=== PATIENT | female | born 1995 | race Two or more races ===

== ENCOUNTER 2021-03-10 09:33 | Outpatient (CLI) | payer OTHER, SELFPAY ==
--- NOTE | ~2021-03-10 | US_ITS ---
US abdomen complete EXAMINATION: US Abdomen Complete INDICATION: Abdominal pain PROCEDURE: Realtime High Resolution abdomen ultrasound. COMPARISON: No prior studies for comparison FINDINGS: Gallbladder contains stones without gallbladder wall thickening or pericholecystic fluid. Common bile duct measures 4 mm. Liver echotexture is increased, consistent with fatty infiltration.. Pancreas within normal limits. Pancreatic tail is obscured by bowel gas. Spleen is unremarkeable. Renal echotexture is within norm al limits bilaterally without hydronephrosis, contour deforming mass or renal stone. Right kidney caitlin sures 11.3 cm. Left kidney measures 11.1 cm. Visualized aspects of the aorta and IVC are within normal limits. Portal vein is patent. No sonograph ic Hernández's sign indicated by the technologist. There is a 1 cm right renal cyst. IMPRESSION: 1: Hepatic steatosis. 2: Cholelithiasis. Reviewed, dictated and finalized at location A.
== END 2021-03-10 09:34 | disposition home or self-care (01) ==
PROVIDERS: Visit Provider Advanced Practice Midwife
DX: R10.9 Unspecified abdominal pain (principal); K76.0 Fatty (change of) liver, not elsewhere classified; K80.20 Calculus of gallbladder without cholecystitis without obstruction
CPT/HCPCS: 76700

== ENCOUNTER 2021-11-25 11:04 | Outpatient (CLI) | payer OTHER, SELFPAY ==
--- NOTE | 2021-12-02 16:35 | WPDHOLTEREM ---
Holter/Event Monitor Holter/Event Monitor Date of procedure: 12/02/21 Holter/Event Procedure: 24 Hr Holter Monitor Diagnosis: Tachycardia Indications: Tachycardia Image/Tracing Quality: Acceptable Finding: Underlying rhythm is sinus with an elevated average heart rate 95 beats per minute minimum of 50 beats per minute occurring at 01:46 a.m. and a maximum 154 beats minute occurring at 11:13 a.m.. One isolated premature ventricular contraction is noted. Rare supraventricular ectopy which there are 7 isolated premature atrial contractions 1 atrial triplet and 1 atrial pair noted. No sustained or nonsustained ventricular tachycardia, atrial fibrillation, atrial flutter, prolonged pauses or high-grade AV blocks. Longest RR interval 1.5 seconds occurring at 1:47 a.m.. No symptoms returned in conjunction with this study. Sinus arrhythmia is observed throughout. MT interval and QRS duration within normal limits. Conclusion: Sinus rhythm with sinus arrhythmia with elevated average heart rate with 1 isolated PVC and rare PACs. No prolonged pauses or high-grade AV blocks. No atrial fibrillation atrial flutter. No symptoms returned in conjunction with this study.
== END 2021-11-25 11:05 | disposition home or self-care (01) ==
LOC: ANHCARD 11:14
PROVIDERS: Visit Provider Physician Assistant
DX: R00.0 Tachycardia, unspecified (principal)
CPT/HCPCS: 93225; 93226

== ENCOUNTER 2022-07-23 10:11 | Emergency (ER) | payer OTHER, SELFPAY ==
--- NOTE | ~2022-07-23 | CT_ITS ---
EXAMINATION: CT abdomen pelvis w con DATE: 07/23/2022 11:31 INDICATION: Right lower quadrant abdominal pain TECHNIQUE: Computed tomography (CT) of the abdomen and pelvis was performed with 100 mL Omnipaque-350 intravenous contrast. Automated exposure control and iterative reconstruction technique were employe d. The dose-length product was 408.04 mGy-cm. COMPARISON: None FINDINGS: Lung bases are clear. Heart size is normal. No pericardial or pleural effusion. Mild focal hepatic st eatosis at the ligamentum teres. Cholecystectomy clips the gallbladder fossa. Spleen, pancreas, bilat eral adrenal glands and left kidney are normal. 3 mm nonobstructing cyst at the lower pole of the rig ht kidney. 11 mm cyst at the upper pole of the right kidney. Bowels including the appendix are normal . Bladder is normal. A couple fluid attenuation cysts/follicles at the left ovary. Right ovary is unr emarkable. Bilateral tubal ligation rings along the broad ligaments. There is an ill-defined approxim ately 2 cm region of decreased enhancement in the region of the right uterine cornua. No free intrape ritoneal gas or fluid. No pathologically enlarged abdominal or pelvic lymphadenopathy. Likely physiol ogic mild anterior wedging at T11 and T12. IMPRESSION: 1. Nonobstructing 3 mm right renal stone. No ureteral stones or hydronephrosis. 2. Indeterminate approximately 2 cm ill-defined region of decreased enhancement in the region of the right uterine cornua. Differential would include uterine fibroid or focal adenomyosis. Although bilat eral tubal ligation rings are in expected position. Differential would also include early . Consider correlation with beta hCG level and further evaluation with pelvic ultrasound. Reviewed, dictated and finalized at location A. LATOR OPERATOR IMPRESSION: 1. Nonobstructing 3 mm right renal stone. No ureteral stones or hydronephrosis. 2. Indeterminate approximately 2 cm ill-defined region of decreased enhancement in the region of the right uterine cornua. Differential would include uterine fibroid or focal adenomyosis. Although bilateral tubal ligation rings are in ex pected position. Differential would also include early . Consider lupillo elation with beta hCG level and further evaluation with pelvic ultrasound.
[2022-07-23 10:21] VITALS: BP 130/88; PULSE 103; RESP 18; TEMP 36.9; O2SAT 100
--- NOTE | 2022-07-23 10:32 | ED.ABDPAIN ---
HPI - Abdominal Pain General Chief Complaint: Abdominal Pain Stated Complaint: right side pain Time Seen by Provider: 07/23/22 10:15 History of Present Illness HPI narrative: 27-year-old female with a history of anxiety presents to the emergency room with sudden onset of unprovoked right pelvic pain and nausea vomiting and diarrhea that began last night. States pelvic pain radiates into her lower back. Recently began her menstrual cycle yesterday. Denies any blood in her emesis or diarrhea. States abdominal pain is a dull sensation is constant. Denies any abdominal surgeries. Denies fevers. Denies dysuria or hematuria. Denies any vaginal discharge. No concerns of STDs. Related Data Allergies Allergy/AdvReac Type Severity Reaction Status Date / Time No Known Allergies Allergy Verified 07/23/22 10:28 Review of Systems Review of Systems: CONSTITUTIONAL: Denies fever, chills, or sweats. EYES: Denies visual changes, redness, or discharge. ENT: Denies rhinorrhea, congestion, sore throat, or otalgia. CARDIOVASCULAR: Denies chest pain, palpitations, or edema. RESPIRATORY: Denies cough or dyspnea. GASTROINTESTINAL: Reports abdominal pain, nausea, vomiting and diarrhea GENITOURINARY: Denies dysuria or hematuria. SKIN: Denies rash or itching. MUSCULOSKELETAL: Denies back pain, joint pain, or myalgia. NEUROLOGIC: Denies headache, numbness, dizziness, or weakness. PSYCHIATRIC: Denies anxiety or depression. Exam Narrative: GENERAL: Well-appearing, well-nourished, no physical limitations, and in no acute distress. HEAD: Normocephalic, atraumatic. EYES: Conjunctivae normal, PERRLA and EOMI. ENT: Mucous membranes dry CHEST: Clear to auscultation. No respiratory distress. No wheezes rales or rhonchi. No tenderness. HEART: Regular rate and rhythm. No murmur heard. Normal peripheral pulses. ABDOMEN: Soft, RLQ tenderness, nondistended, normal active bowel sounds. Negative heel strike. Negative psoas and obturator signs. BACK: No CVA tenderness EXTREMITIES: Normal range of motion. No edema. No clubbing or cyanosis SKIN: Warm, dry, no rash. No noted wounds NEURO: No focal deficits. Alert and oriented x3. MAEW. CN's II-XI intact bilaterally, normal gait PSYCH: Cooperative. Normal mood and affect. Course Vital Signs Vital signs: Vital Signs Temperature 36.9 C 07/23/22 10:21 Pulse Rate 103 H 07/23/22 10:21 Respiratory Rate 18 07/23/22 10:21 Blood Pressure 130/88 07/23/22 10:21 Pulse Oximetry 100 07/23/22 10:21 Oxygen Delivery Room Air 07/23/22 10:21 Temperature 36.9 C 07/23/22 10:21 Pulse Rate 103 H 07/23/22 10:21 Respiratory Rate 18 07/23/22 10:21 Blood Pressure 130/88 07/23/22 10:21 Pulse Oximetry 100 07/23/22 10:21 Oxygen Delivery Room Air 07/23/22 10:21 MDM - Abdominal Pain MDM Narrative Medical decision making narrative: 27-year-old female presented to the emergency room with right-sided pelvic pain since yesterday with associated nausea vomiting and diarrhea. CT scan shows a possible adenomyosis on the right side of the uterus, which is likely causing the pain the patient is experiencing. Patient did have a count, which is likely due to her vomiting. Patient responded well to a liter of fluids pain medicine and nausea medicine. Discussed the CT findings with the patient and encouraged her to follow-up with her [employer]. Lab Data Attestation: I reviewed the patient's lab results. 07/23/22 10:41 07/23/22 10:41 Labs: Lab Results 07/23/22 07/23/22 07/23/22 Range/Units 10:41 10:41 10:41 WBC 16.4 H (4.5-10.0) K/mm3 RBC 4.11 L (4.2-5.4) M/mm3 Hgb 13.9 (12.0-15.0) g/dL Hct 41.8 (37.0-47.0) % MCV 101.7 H (80-100) fl MCH 33.8 (26-34) pg MCHC 33.3 (32-36) g/dl RDW 12.1 (11.5-14.5) % Plt Count 231 (150-375) k/mm3 MPV 12.1 H (7.4-10.4) fl Immature Gran % (Auto) 0.3 (0-0.5) % Neut % (Auto) 91.7 H
[2022-07-23] MEDS: SODIUM CHLORIDE 0.9% IV 1,000 ML 999 ML IV CONT (10:43)
[2022-07-23] MEDS: ONDANSETRON INJ 4 MG/2 ML VIAL IV PUSH (10:44)
[2022-07-23 10:49] LABS: Basophils Absolute Auto 0.1 K/mm3 (0.0-0.1); Basophils Percent Auto 0.4 % (0.2-1.2); Eosinophils Percent Auto 0.1 % (0-4.4); Hematocrit 41.8 % (37.0-47.0); Hemoglobin 13.9 g/dL (12.0-15.0); Immature Granulocyte Absolute 0.05 K/mm3 (0.00-0.031); Immature Granulocyte Percent A 0.3 % (0-0.5); Lymphocytes Absolute Auto 0.86 K/mm3 (0.9-3.2); Lymphocytes Percent Auto 5.2 % (18.3-44.2); Mean Corpuscular HGB Conc 33.3 g/dl (32-36); Mean Corpuscular Hemoglobin 33.8 pg (26-34); Mean Corpuscular Volume 101.7 fl (80-100); Mean Platelet Volume 12.1 fl (7.4-10.4); Monocytes Absolute Auto 0.4 K/mm3 (0.1-0.6); Monocytes Percent Auto 2.3 % (2.6-8.5); Neutrophils Absolute Auto 15.1 K/mm3 (1.3-6.7); Neutrophils Percent Auto 91.7 % (45.5-73.1); Platelet Count Result 231 k/mm3 (150-375); Red Blood Count 4.11 M/mm3 (4.2-5.4); Red Cell Distribution Width 12.1 % (11.5-14.5); White Blood Count 16.4 K/mm3 (4.5-10.0)
[2022-07-23] MEDS: KETOROLAC 30 MG/ML VIAL (*BKC) IV PUSH (10:54)
[2022-07-23 11:02] LABS: Alanine Aminotransferase 28 U/L (6-35); Albumin Level 4.6 g/dL (3.5-5.1); Alkaline Phosphatase 68 U/L (38-126); Anion Gap 5 mmol/L (8-16); Aspartate Amino Transferase 25 U/L (14-36); Bilirubin,Total 0.4 mg/dL (0.2-1.3); Blood Urea Nitrogen 10 mg/dL (7-17); Calcium 8.9 mg/dL (8.4-10.2); Carbon Dioxide 27 mmol/L (22-30); Chloride 104 mmol/L (98-107); Estimated CRCL calculation 106 ml/min; Estimated Glomerular Filt Rate > 60; Glucose 104 mg/dL (65-110); Lactic Acid Reflex 1.4 mmol/L (0.7-2.0); Lipase 256 U/L (23-300); Potassium 4.2 mmol/L (3.4-5.0); Sodium 136 mmol/L (137-145)
[2022-07-23 11:09] LABS: Appearance Urine Clear (Clear); Bilirubin Urine Negative (Negative); Blood Urine 3+ (Negative); Color Urine Yellow (Yellow); Glucose Urine UA Negative (Negative); Ketones Urine Negative (Negative); Leukocyte Esterase Ur Trace LEU/UL (Negative); Nitrate Urine Negative (Negative); Protein Urine 2+ mg/dL (Negative); Urobilinogen Urine 0.2 mg/dL (<2.0); pH Urine 7.5 (5.0-9.0)
[2022-07-23 11:15] LABS: Bacteria Urine Trace /hpf; Mucus Urine Few /lpf; RBC Urine >75 /hpf (0-2); Squamous Epithelial Cell Urine Moderate /hpf (Few); WBC Urine 21-30 /hpf
[2022-07-23 11:17] LABS: Add Urine Microscopic? YES
[2022-07-23] MEDS: MORPHINE SULFATE (*CRX) 4 MG/ML INJ IV PUSH (11:57)
[2022-07-23 12:47] VITALS: BP 108/71; PULSE 94; RESP 18; O2SAT 100
== END 2022-07-23 12:49 | disposition home or self-care (01) ==
PROVIDERS: Emergency Provider Nurse Practitioner Family
DX: N80.03 Adenomyosis of the uterus (principal); R11.10 Vomiting, unspecified
CPT/HCPCS: 36415; 74177; 80053; 81001; 81025; 83605; 83690; 85025; 87086; 87088; 96361; 96374; 96375; 99284; J1885; J2270; J2405; J7030; Q9967

== ENCOUNTER 2022-08-15 12:44 | Outpatient (CLI) | payer OTHER, SELFPAY ==
--- NOTE | ~2022-08-15 | CT_ITS ---
EXAMINATION: CT sinus wo con DATE: 08/15/2022 13:01 INDICATION: TECHNIQUE: Computed tomography (CT) of the paranasal sinuses was performed without intravenous contra st. The dose-length product (DLP) was 322.78 mGy-cm. Iterative reconstruction was used. COMPARISON: None FINDINGS: There is normal development and pneumatization of the paranasal sinuses. Large retention cy st or polyp in the inferior/dependent right maxillary sinus The frontal, sphenoid, ethmoid, and maxil kayli sinuses are otherwise clear. The bilateral ostiomeatal complexes are patent. Visualized soft tis sues are unremarkable. IMPRESSION: 1. Right maxillary sinus cyst/polyp. 2. Otherwise normal CT sinus findings. Reviewed, dictated and finalized at location K. NESS INITIATIVES MANAGER
== END 2022-08-15 12:45 | disposition home or self-care (01) ==
LOC: ANHIMG 12:49
PROVIDERS: PCP Physician Assistant; Visit Provider Otolaryngology
DX: J32.9 Chronic sinusitis, unspecified (principal); J34.1 Cyst and mucocele of nose and nasal sinus
CPT/HCPCS: 70486

== ENCOUNTER 2024-02-02 11:29 | Outpatient (CLI) | payer OTHER, SELFPAY ==
[2024-02-02 15:44] LABS: Hematocrit 38.9 % (37.0-47.0); Hemoglobin 13.1 g/dL (12.0-15.0)
== END 2024-02-02 11:30 | disposition home or self-care (01) ==
PROVIDERS: Visit Provider Obstetrics & Gynecology
DX: N94.6 Dysmenorrhea, unspecified (principal); Z01.818 Encounter for other preprocedural examination
CPT/HCPCS: 36415; 85014; 85018; 86850; 86900; 86901

== ENCOUNTER 2024-02-09 00:47 | Day surgery (SDC) | payer OTHER, SELFPAY ==
[2024-02-01 14:45] VITALS: BMI 32.3
--- NOTE | 2024-02-01 14:54 | PC.NURSE ---
Report to the Outpatient Waiting Room, entrance under the green pavilion located off [facility], at time _0600_ on date _[id number]_. Planned Procedure Time: _0730_. Time changes happen often and if your time is changed the preop area will call you the afternoon before. - You and your visitor will be asked to self-screen and do not enter if you have any COVID symptoms. - A mask is optional within the hospital at this time. Patients may have clear liquids (water, carbonated beverages, clear teas, apple juice) until 3 hours prior to surgery with a maximum of 20 ounces. - No food from midnight until time of surgery Take the following medications with a SIP of water the morning of surgery: ___Bupropion DO NOT STOP ANY OF YOUR OTHER PRESCRIPTION MEDICATIONS PRIOR TO SURGERY ?EXCEPT THE FOLLOWING Medications to discontinue per physician ___All vitamins and supplements Date to take last gadk___[id number] Kaminski's office if OK to be taking Aleve. Please no make-up, nail portuguese, hairspray, perfume, deodorant, or body powder the day of surgery. No jewelry (including any body piercings) or valuables the day of surgery, leave them at home. Please take a shower or bath the night before, or the morning of, surgery with an antibacterial soap. Wear comfortable, loose fitting clothing. - Jewelry must be removed prior to entering the operating room. Rings and piercings that are not removed may be cut off. - The hospital will not accept responsibility for valuables. - Please leave all valuables, including medications, at home the day of surgery. If you are going home after surgery, a licensed tank wagon driver must drive you home. - NO public transportation without another adult if you receive anesthesia. - We recommend that an adult stay with you for 24 hours following discharge. - We also recommend that you do not drive, make important decision, drink alcoholic beverages, or take any drugs that were not prescribed by your health care provider for at least 24 hours after your discharge time. Follow any additional instructions given to you from your surgeon. If you or anyone in your household have experienced Covid symptoms in the past week, please notify your surgeon or the nurse liaison at the phone number below for possible testing. Telephone instructions given to __Aliya___and asked if any additional questions and then verbalized understanding. Patient advised to call surgeon office or pre surgery nurse liaison [phone] if any additional questions.
--- NOTE | 2024-02-08 06:36 | PM.IMHP ---
H&P: HPI History of Present Illness Date/Time: 02/08/24 06:36 Chief Complaint: pelvic pain/ bleeding / dysmenorrhea Narrative: 20-year-old female admitted for laparoscopy and hysteroscopy dilatation curettage secondary pelvic pain and vaginal bleeding. She had negative ultrasound had negative STD test. She has had pain discomfort and dyspareunia. Risks and benefits of these procedures were reviewed including exclusive of , aspiration pneumonia, bleeding, transfusion, perforation injury to bowel, bladder, ureters, or other internal organs with need for open laparotomy. She received the ACOG handout entitled laparoscopy as well as dilatation curettage and hysteroscopy respectively. She had all questions answered. She asked to proceed PMF Social History Social History Smoking status: Never smoker Alcohol intake: current Living arrangements: with family Spiritual care concerns: No Meds Home Medications and Allergies Home Medications Medication Instructions Recorded Confirmed Type ondansetron 4 mg disintegrating 4 mg PO Q8H #20 tabs 07/23/22 02/01/24 Rx tablet bupropion HCl 150 mg 24 hr tablet, 150 mg PO DAILY 02/01/24 02/01/24 History extended release cholecalciferol (vitamin D3) 50 50 mcg PO DAILY 02/01/24 02/01/24 History mcg (2,000 unit) capsule (Vitamin D3) cyanocobalamin (vitamin B-12) 5,000 mcg sublingual DAILY 02/01/24 02/01/24 History 5,000 mcg sublingual tablet (Vitamin B-12) ferrous sulfate 324 mg (65 mg 324 mg PO DAILY 02/01/24 02/01/24 History iron) tablet,delayed release magnesium 200 mg tablet 200 mg PO DAILY 02/01/24 02/01/24 History naproxen sodium 220 mg tablet 440 mg PO BID PRN Pain 02/01/24 02/01/24 History (Aleve) omega 1-out-aaf-fish oil 1,200 mg 1 cap PO DAILY 02/01/24 02/01/24 History (144 mg-216 mg) capsule (Fish Oil) valacyclovir 1 gram tablet 1,000 mg PO DAILY 02/01/24 02/01/24 History Allergies Allergy/AdvReac Type Severity Reaction Status Date / Time No Known Allergies Allergy Verified 02/01/24 14:38 Exam Const: General: cooperative, healthy appearing and comfortable Nutritional Appearance: overweight Orientation/consciousness: oriented to person, oriented to place and oriented to time Resp: Effort & Inspection: normal respiratory effort Cardio: Rate: regular rate Rhythm: regular rhythm Heart sounds: S1 normal heart sound present and S2 normal heart sound present GI: Inspection: normal to inspection : External Female Exam: normal external appearance Speculum Exam - Vagina: normal appearance of the vagina Speculum Exam - Cervix: normal appearance of the cervix Bimanual exam- vagina & uterus: uterine size normal and cervical motion tenderness Bimanual Exam- Adnexa, other: tender bilaterally Assessment and Plan Assessment and plan (1) Pelvic pain: Code(s): R10.2 - Pelvic and perineal pain Status: Acute (2) Excessive bleeding: Code(s): R58 - Hemorrhage, not elsewhere classified Status: Acute (3) Dyspareunia: Status: Acute Plan proceed with diagnostic laparoscopy hysteroscopy dilatation and curettage
[2024-02-09] VITALS (12 sets, daily range): BP systolic 102–126; BP diastolic 67–98; PULSE 67–105; RESP 12–18; TEMP 36.8–36.9; O2SAT 99–100; BMI 31.8
--- NOTE | 2024-02-09 04:35 | WPDHPUPDATE1 ---
History and Physical Update Update Date/Time: 02/09/24 04:35 History and Physical has been reviewed, including an updated exam of the patient. There are NO changes in the patient's condition. Risks, benefits, and alternatives have been discussed and questions answered. Patient agrees to proceed with procedure.
[2024-02-09] MEDS: LACTATED RINGERS 1,000 ML 30 ML IV CONT ×2 (06:30→08:19)
[2024-02-09] MEDS: ACETAMINOPHEN 500 MG TABLET 1000 MG PO (06:42)
[2024-02-09] MEDS: KETOROLAC 15 MG/ML VIAL (*BKC) IV PUSH (06:43)
[2024-02-09] MEDS: SCOPOLAMINE 1 MG PATCH 1 PATCH TRANSDERM (07:20)
--- NOTE | 2024-02-09 07:20 | P.PNAN_ITS ---
Anes - Initial Pre Proc Eval Procedure: Operation Date: 02/09/24 07:30 Proposed Procedures p Diagnostic Laparoscopy with Hysteroscopy Dilation and Curettage - Emmanuel Roman MD Date/Time: 02/09/24 07:20 Surgeon: Emmanuel Roman MD Pre Op Diagnosis: dyspareunia, dysmenorrhea, Patient Data Age: 28 Gender: F Height: 1.63 m Weight: 84 kg Last Vital Signs Temp 36.9 C 02/09/24 05:55 Pulse 100 02/09/24 05:55 Resp 16 02/09/24 05:55 BP 126/88 02/09/24 05:55 Pulse Ox 99 02/09/24 05:55 O2 Del Method Room Air 02/09/24 05:55 Allergies Allergy/AdvReac Type Severity Reaction Status Date / Time No Known Allergies Allergy Verified 02/09/24 06:46 Home Medications Medication Instructions Recorded Confirmed Type ondansetron 4 mg disintegrating 4 mg PO Q8H #20 tabs 07/23/22 02/01/24 Rx tablet bupropion HCl 150 mg 24 hr tablet, 150 mg PO DAILY 02/01/24 02/09/24 History extended release cholecalciferol (vitamin D3) 50 50 mcg PO DAILY 02/01/24 02/09/24 History mcg (2,000 unit) capsule (Vitamin D3) cyanocobalamin (vitamin B-12) 5,000 mcg sublingual DAILY 02/01/24 02/09/24 History 5,000 mcg sublingual tablet (Vitamin B-12) ferrous sulfate 324 mg (65 mg 324 mg PO DAILY 02/01/24 02/09/24 History iron) tablet,delayed release magnesium 200 mg tablet 200 mg PO DAILY 02/01/24 02/09/24 History naproxen sodium 220 mg tablet 440 mg PO BID PRN Pain 02/01/24 02/01/24 History (Aleve) omega 2-eoj-upc-fish oil 1,200 mg 1 cap PO DAILY 02/01/24 02/09/24 History (144 mg-216 mg) capsule (Fish Oil) valacyclovir 1 gram tablet 1,000 mg PO DAILY 02/01/24 02/09/24 History hydrocodone 5 mg-acetaminophen 325 1 tablet PO Q4H PRN pain #30 tabs 06/28/24 Rx mg tablet Patient hx anesthesia problems: none Family hx anesthesia problems: none Results Review: All pre-operative results and documents have been reviewed as part of the pre- operative evaluation. [facility] Social History Social History Smoking status: Never smoker Alcohol intake: current Living arrangements: with family Spiritual care concerns: No Anes - Eval Final PreProcedure Day of Procedure 02/09/24 07:20 Patient weight: obese Heart: regular rate and rhythm Lungs: clear to auscultation Airway: Mallampati scale class II Neurological: alert and oriented Last oral intake: >/= 8 hours ASA classification: II Emergent: no Anesthetic plan: proceed Anesthesia type and monitoring: general ETT and standard monitoring Results Review: All pre-operative results and documents have been reviewed as part of the pre- operative evaluation. Informed Consent: The patient's anesthetic plan and its attendant risks and benefits were discussed with the patient/family/POA. Questions were solicited and answers provided to the satisfaction of the patient/family/POA.
--- NOTE | 2024-02-09 08:11 | P.OP_ITS ---
Procedure Note - Detailed Date of Procedure 02/09/24 Pre-op Diagnosis dyspareunia, dysmenorrhea, Post-op Diagnosis Other (Dyspareunia/ dysmenorrhea/endometriosis / right ovarian cyst/) Procedure Performed laparoscopy with destruction of endometriosis and destruction of right ovarian cyst hysteroscopy dilatation curettage Surgeon Emmanuel Roman MD Anesthesia General Indications this is a 28-year-old female status post tubal ligation with excessive bleeding and pelvic pain Findings uterus was fairly enlarged. The tubes were surgically excised. Is the moderate-sized right ovarian cyst. Troy masters windows were seen in the cul-de-sac and the right ovarian fossa. Small areas of endometriosis along the right uterosacral ligament. A normal appendix was seen. The gallbladder appeared to be surgically absent Description of Procedure patient was prepped and draped in the normal sterile fashion placed in dorsal lithotomy position. Under excellent general trach anesthesia weighted speculum placed in posterior fornix vagina. Anterior lip of cervix grasped with single- tooth tenaculum. Chao's cannula inserted the cervix and attached to the single-tooth. The bladder was emptied of clear urine the weighted speculum was. The gloves were changed. A supraumbilical incision made the Veress needle passed in the abdomen. Abdomen filled with CO2 gas 15 was mercury. The 5mm trocar advanced under direct visualization with the optic scope no injury seen. Patient placed in Trendelenburg and a suprapubic incision made. The 5mm trocar advanced under direct visualization assuring no injury. About 5cc of serosanguineous fluid seen in the cul-de-sac and this was rinsed and removed. The right ovary had a moderate-sized benign-appearing cyst in there was some endometriosis along the right uterosacral ligament this was cauterized at 35 w per 2nd. The tubes were surgically excised at their midportion. The uterus was large red appearing had no miotic. The appendix was present and the gallbladder appeared surgically absent. The ovarian cyst was opened in linear fashion on the right drained clear fluid irrigation undertaken. No other abnormalities were seen. The lower site removed. The gas removed from the abdomen. The upper site removed the incisions closed with 4 Monocryl glue. And next attention was turned to the hysteroscopic portion. The uterus sounded to 8cm. Serial dilatation with fragmented dilators performed followed by passage of the 5mm visualizing hysteroscope. Normal saline was used as visualizing medium. Thick irregular endometrial tissue was seen. The uterus was scraped over the entire 360? until good grating sound was heard. The instruments withdrawn the patient was awakened went to recovery in satisfactory condition. All sponge, needle, instrument counts were correct. Were no immediate complications Estimated Blood Loss 5 Drains No Packing No Pathology Yes Complications No immediate complications Condition Stable Disposition PACU
[2024-02-09] MEDS: fentaNYL CITRATE INJ (*CRX) 100 MCG/2 ML VIAL 25 MCG IV PUSH ×3 (09:33→09:43)
[2024-02-09] MEDS: oxyCODONE HCL (*CRX) 5 MG TAB IR PO (10:12)
== END 2024-02-09 10:44 | disposition home or self-care (01) ==
PROVIDERS: PCP Physician Assistant; Visit Provider Obstetrics & Gynecology
PROC: 0UDB8ZZ Extraction of Endometrium, Via Natural or Artificial Opening Endoscopic (ICD-10-PCS; CPT 58558; principal; 2024-02-09 07:30)
DX: N85.01 Benign endometrial hyperplasia (principal)
CPT/HCPCS: 58662; 58558; 36415; 85014; 85018; 86850; 86900; 86901; 88305; A9270; J1100; J1170; J1200; J1885; J2250; J2405; J2704; J3010; J7120

== ENCOUNTER 2024-05-11 09:04 | Emergency (ER) | payer OTHER, SELFPAY ==
--- NOTE | 2024-05-11 09:15 | ED.URI ---
HPI - URI/Sore Throat General Chief Complaint: Upper Respiratory Infection Stated Complaint: Sore Throat Time Seen by Provider: 05/11/24 09:15 Source: patient Mode of arrival: ambulatory Limitations: no limitations History of Present Illness HPI Narrative: 29-year-old female presents with complaint sore throat, congestion, cough fatigue, body aches for 2 days. Afebrile. Take Zyrtec and Flonase daily for allergies. Started Robitussin DM with some relief of symptoms. Denies nausea vomiting diarrhea. No chest pain or shortness of breath. All systems reviewed and negative except as noted above. Related Data Home Medications Medication Instructions Recorded Confirmed bupropion HCl 150 mg 24 hr tablet, 150 mg PO DAILY 02/01/24 02/09/24 extended release cholecalciferol (vitamin D3) 50 50 mcg PO DAILY 02/01/24 02/09/24 mcg (2,000 unit) capsule (Vitamin D3) cyanocobalamin (vitamin B-12) 5,000 mcg sublingual DAILY 02/01/24 02/09/24 5,000 mcg sublingual tablet (Vitamin B-12) ferrous sulfate 324 mg (65 mg 324 mg PO DAILY 02/01/24 02/09/24 iron) tablet,delayed release magnesium 200 mg tablet 200 mg PO DAILY 02/01/24 02/09/24 naproxen sodium 220 mg tablet 440 mg PO BID PRN Pain 02/01/24 02/01/24 (Aleve) omega 1-wee-tbo-fish oil 1,200 mg 1 cap PO DAILY 02/01/24 02/09/24 (144 mg-216 mg) capsule (Fish Oil) valacyclovir 1 gram tablet 1,000 mg PO DAILY 02/01/24 02/09/24 cetirizine 10 mg tablet 10 mg PO DAILY 05/11/24 05/11/24 itraconazole 100 mg capsule mg 05/11/24 05/11/24 Allergies Allergy/AdvReac Type Severity Reaction Status Date / Time No Known Allergies Allergy Verified 02/09/24 06:46 Review of Systems Review of Systems: CONSTITUTIONAL: Denies fever, chills, or sweats. EYES: Denies visual changes, redness, or discharge. ENT: Reports rhinorrhea, congestion, sore throat. Denies otalgia. CARDIOVASCULAR: Denies chest pain, palpitations, or edema. RESPIRATORY: Reports cough. Denies dyspnea. GASTROINTESTINAL: Denies abdominal pain, nausea, vomiting, or diarrhea. GENITOURINARY: Denies dysuria or hematuria. SKIN: Denies rash or itching. MUSCULOSKELETAL: Denies back pain, joint pain. Reports myalgia. NEUROLOGIC: Denies headache, numbness, or weakness. PSYCHIATRIC: Denies anxiety or depression. All other systems reviewed are negative, except as documented in HPI. PMFSH Social History Social History Smoking status: Never smoker Alcohol intake: current Living arrangements: with family Spiritual care concerns: No Comments At time of signature, agree with nursing past medical, surgical, social and family history. There is no relevant family history pertinent to the presenting complaint. Exam Narrative: GENERAL: This is a well-nourished, well-developed patient, in no apparent distress. HEAD: normocephalic, atraumatic. EYES: PERRL. Sclera clear/white. Vision is grossly intact. EARS: External ears normal, auditory canals clear and without drainage, TMs normal without perforation. Hearing grossly intact. NOSE: External nose normal with clear nasal drainage, mild congestion. THROAT: Mucous membranes moist, mild erythema without significant swelling or exudates. Clear postnasal drainage NECK: Neck supple, non-tender without lymphadenopathy, masses or thyromegaly. CARDIOVASCULAR: Regular rate and rhythm without murmurs, gallops, or rubs. RESPIRATORY: Clear to auscultation. Breath sounds equal bilaterally. No wheezes, rales, or rhonchi. SKIN: warm, Dry, intact with no suspicious lesions or rash, good texture and turgor. NEURO: awake, alert, and oriented to person, place and time. There were no obvious focal neurologic abnormalities. EXTREMITIES: No joint tenderness, effusion, or edema noted. Course Course Level of Care: Express Care Visit Vital Signs Vital signs: Vital Signs Temperature 37.3 C 05/11/24 09:20 Pulse Rate
[2024-05-11 09:20] VITALS: BP 121/93; PULSE 109; RESP 16; TEMP 37.3; O2SAT 100
[2024-05-13 14:28] LABS: EDSTREPNEGPOS1 Negative (Negative)
== END 2024-05-11 09:54 | disposition home or self-care (01) ==
PROVIDERS: Emergency Provider Nurse Practitioner Family
DX: J06.9 Acute upper respiratory infection, unspecified (principal); Z20.822 Contact with and (suspected) exposure to COVID-19
CPT/HCPCS: 87081; 87635; 87880; 99213; G0463

== ENCOUNTER 2024-05-14 11:30 | Emergency (ER) | payer OTHER, SELFPAY ==
--- NOTE | ~2024-05-14 | XR_ITS ---
EXAMINATION: XR chest 2V 05/14/2024 12:18 INDICATION: Cough and congestion PROCEDURE: 2 view chest COMPARISON: No prior studies for comparison. FINDINGS: The lungs are clear. The cardiomediastinal silhouette is within normal limits. There are no pleural effusions. There is no pneumothorax suspected. IMPRESSION: 1: NO ACUTE CARDIOPULMONARY DISEASE. Reviewed, dictated and finalized at location B.
--- NOTE | 2024-05-14 11:33 | ED.URI ---
HPI - URI/Sore Throat General Chief Complaint: Upper Respiratory Infection Stated Complaint: NOSEBLEED/COUGH/CHEST CONGESTION Time Seen by Provider: 05/14/24 11:32 Source: patient Mode of arrival: ambulatory Limitations: no limitations History of Present Illness HPI Narrative: Aliya is a 29-year-old female patient presenting to the clinic today with complaints nose bleeds, cough, and chest congestion. Symptoms started on night. She was seen on Monday in the clinic and tested for strep and COVID at that time and both test were negative. She was diagnosed with URI with cough and congestion at that time. She reports that the sore throat has improved however she still has cough and congestion and has had nose bleeds x3. States that she has had a nose bleed every day for the last 3 days when she has been blowing her nose. She does not having active epistaxis at this time. Feels short of breath but states that it is due to the nasal congestion. She is requesting a chest x-ray. MD elicited complaint: cough, nasal congestion and other (Epistaxis, chest congestion) Related Data Home Medications Medication Instructions Recorded Confirmed bupropion HCl 150 mg 24 hr tablet, 150 mg PO DAILY 02/01/24 02/09/24 extended release cholecalciferol (vitamin D3) 50 50 mcg PO DAILY 02/01/24 02/09/24 mcg (2,000 unit) capsule (Vitamin D3) cyanocobalamin (vitamin B-12) 5,000 mcg sublingual DAILY 02/01/24 02/09/24 5,000 mcg sublingual tablet (Vitamin B-12) ferrous sulfate 324 mg (65 mg 324 mg PO DAILY 02/01/24 02/09/24 iron) tablet,delayed release magnesium 200 mg tablet 200 mg PO DAILY 02/01/24 02/09/24 naproxen sodium 220 mg tablet 440 mg PO BID PRN Pain 02/01/24 02/01/24 (Aleve) omega 9-vel-ssv-fish oil 1,200 mg 1 cap PO DAILY 02/01/24 02/09/24 (144 mg-216 mg) capsule (Fish Oil) valacyclovir 1 gram tablet 1,000 mg PO DAILY 02/01/24 02/09/24 cetirizine 10 mg tablet 10 mg PO DAILY 05/11/24 05/11/24 itraconazole 100 mg capsule mg 05/11/24 05/11/24 Allergies Allergy/AdvReac Type Severity Reaction Status Date / Time No Known Allergies Allergy Verified 02/09/24 06:46 Review of Systems Review of Systems: Pertinent positives per HPI. Patient denies any fever, chills, rash, headache, visual changes, dizziness, cough, shortness of breath, chest pain, palpitations, nausea, vomiting, diarrhea, constipation, abdominal pain, or any urinary issues. PMFSH Social History Social History Smoking status: Never smoker Alcohol intake: current Living arrangements: with family Spiritual care concerns: No Comments At the time of my signature, I reviewed and agree with the nursing past medical, surgical, social, and family history. There is no relevant family history pertinent to the patient complaint. Exam Narrative: General: Well-developed, well nourished, in no apparent distress Head: Normocephalic, atraumatic Eyes: Pupils equally round and reactive to light bilaterally, EOM intact, sclera and conjunctive clear, no discharge, lids normal Ears: TMs intact and clear, ear canals clear, no drainage, grossly hearing normal. Nose: Nares patent, clear discharge, moderate inflammation, dry blood noted to the left anterior nare, no active bleeding, no sinus tenderness. Mouth: Oral pharynx without lesions or masses, good dentition, MMM. Neck: Supple, trachea midline, no enlargement of anterior or posterior cervical nodes, no thyroid masses or goiter palpable. Cardio: Regular rate and rhythm, s1 and s2 normal, no murmur appreciated. Resp: Clear to auscultation bilaterally, no rhonchi, rales, wheezing or rubs Course Course Emergency Course: Portions of this record may have been created with voice recognition software. Level of Care: Express Care Visit Vital Signs Vital signs: Vital Signs Temperature 36.1 C L 05/14/24 11:40 Pulse Rate 104 H
[2024-05-14 11:40] VITALS: BP 122/85; PULSE 104; RESP 16; TEMP 36.1; O2SAT 100
[2024-05-14 12:24] LABS: EDCOVIDSCREEN Positive (Negative)
== END 2024-05-14 12:35 | disposition home or self-care (01) ==
PROVIDERS: Emergency Provider Nurse Practitioner Family; PCP Physician Assistant
DX: U07.1 COVID-19 (principal); F41.9 Anxiety disorder, unspecified; F32.A Depression, unspecified
CPT/HCPCS: 71046; 87426; 99213; G0463

== ENCOUNTER 2024-06-18 17:35 | Emergency (ER) | payer OTHER, SELFPAY ==
[2024-06-18 17:55] VITALS: BP 122/89; PULSE 76; RESP 19; TEMP 36.3; O2SAT 100
--- NOTE | 2024-06-18 18:34 | ED_ITS ---
HPI - General Adult General Chief complaint: Skin/Abscess/Foreign Body Stated complaint: Blister Source: patient Mode of arrival: ambulatory Limitations: no limitations History of Present Illness HPI narrative: Patient presents for evaluation of an ulcer to right breast. She indicates five days ago she noticed a blister to the right breast. 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 She states that the area feels sore . No fever, chills, purulent discharge. No personal or family history of breast cancer. She does not smoke. She has been using an alcohol pad to clean it. Related Data Home Medications Medication Instructions Recorded Confirmed bupropion HCl 150 mg 24 hr tablet, 150 mg PO DAILY 02/01/24 06/18/24 extended release cholecalciferol (vitamin D3) 50 50 mcg PO DAILY 02/01/24 06/18/24 mcg (2,000 unit) capsule (Vitamin D3) cyanocobalamin (vitamin B-12) 5,000 mcg sublingual DAILY 02/01/24 06/18/24 5,000 mcg sublingual tablet (Vitamin B-12) magnesium 200 mg tablet 200 mg PO DAILY 02/01/24 06/18/24 omega 1-bjz-cmu-fish oil 1,200 mg 1 cap PO DAILY 02/01/24 06/18/24 (144 mg-216 mg) capsule (Fish Oil) valacyclovir 1 gram tablet 1,000 mg PO DAILY 02/01/24 06/18/24 cetirizine 10 mg tablet 10 mg PO DAILY 05/11/24 06/18/24 medroxyprogesterone 10 mg tablet 10 mg PO DAILY 06/18/24 06/18/24 metformin 500 mg tablet 500 mg PO DAILY 06/18/24 06/18/24 Allergies Allergy/AdvReac Type Severity Reaction Status Date / Time No Known Allergies Allergy Verified 06/18/24 17:39 Review of Systems Review of Systems: CONSTITUTIONAL: Denies fever, chills, or sweats. EYES: Denies visual changes, redness, or discharge. ENT: Denies rhinorrhea, congestion, sore throat, or otalgia. CARDIOVASCULAR: Denies chest pain, palpitations, or edema. RESPIRATORY: Denies cough or dyspnea. GASTROINTESTINAL: Denies abdominal pain, nausea, vomiting, or diarrhea. GENITOURINARY: Denies dysuria or hematuria. SKIN: Reports ulcerative lesion in the area of a former blister to the right breast MUSCULOSKELETAL: Denies back pain, joint pain, or myalgia. NEUROLOGIC: Denies headache, numbness, dizziness, or weakness. PSYCHIATRIC: Denies anxiety or depression. [facility] Past Medical History Medical History Herpes simplex Surgical History Surgical History No pertinent past surgical history Family History Family History Mother Family history non-contributory Social History Social History Smoking status: Never smoker Alcohol intake: current Living arrangements: with family Spiritual care concerns: No Exam Narrative: GENERAL: Well-appearing, well-nourished, and in no acute distress. HEAD: Normocephalic, atraumatic. EYES: PERRLA and EOMI. ENT: Nares clear, no rhinorrhea or epistaxis. Mucous membranes moist. Oropharynx without tonsillar hypertrophy exudate or other lesions. Bilateral TMs pearly walsh nonbulging NECK: Supple. No adenopathy or masses. No carotid bruits or JVD CHEST: Clear to auscultation. No respiratory distress. No wheezes rales or rhonchi HEART: Regular rate and rhythm. No murmur heard. Normal peripheral pulses. ABDOMEN: Soft, nontender, nondistended, normal active bowel sounds. EXTREMITIES: Normal range of motion. No edema. SKIN: 1.3 x 1.5 cm annular ulcerative lesion to the right breast. There is a 6 x 3 cm area of surrounding erythema. There is no underlying fluctuance or drainable fluid collection. NEURO: No focal deficits. Alert and oriented x3. PSYCH: Normal mood and affect. Course Course Emergency Course: This is a 29-year-old female who presented for evaluation of an ulcerative lesion to the right breast. There does not appear to be a drainable fluid collection. I suspect that she had some clothing rubbing her breasts which resulted in the blistered lesion. I will cover her with some oral antibiotics and recommend that she contact her OBGYN tomorrow. Monitor for signs of infection and in the event that those present, she should go to the emergency department. Patient is in agreement with plan of care. Level of Care: Express Care Visit Discharge Plan Discharge Clinical Impression: Skin ulcer of female breast Patient Disposition: Home, Self-Care Condition: Stable Instructions: Antibiotic Form, Acute Wounds (DC) Additional Instructions: WASH AREA WITH DIAL ANTIBACTERIAL SOAP AND WATER PAT DRY APPLY NEOSPORIN CALL DR DIANA TEMPLETON TOMORROW FOR AN APPOINTMENT GO TO THE ER FOR REDNESS OR WORSENING SYMPTOMS. Patient Language: Romanian Prescriptions: New sulfamethoxazole-trimethoprim [Bactrim DS] 800-160 mg tablet 1 tablet PO Q12H Qty: 20 0RF cephalexin 500 mg capsule 500 mg PO Q6H Qty: 40 0RF No Action cetirizine 10 mg Tablet 10 mg PO DAILY metformin 500 mg tablet 500 mg PO DAILY medroxyprogesterone 10 mg tablet 10 mg PO DAILY valacyclovir 1 gram tablet 1,000 mg PO DAILY magnesium 200 mg Tablet 200 mg PO DAILY bupropion HCl 150 mg tablet extended release 24 hr 150 mg PO DAILY cholecalciferol (vitamin D3) [Vitamin D3] 50 mcg (2,000 unit) Capsule 50 mcg PO DAILY omega 5-yio-hbn-fish oil [Fish Oil] 1,200 (144-216) mg Capsule 1 cap PO DAILY cyanocobalamin (vitamin B-12) [Vitamin B-12] 5,000 mcg Tablet, Sublingual 5,000 mcg SUBLINGUAL DAILY Follow-up/Referrals: Emmanuel Valenzuela MD [Physician] - Time of Disposition: 18:32
== END 2024-06-18 18:40 | disposition home or self-care (01) ==
PROVIDERS: Emergency Provider Nurse Practitioner
DX: L98.499 Non-pressure chronic ulcer of skin of other sites with unspecified severity (principal)
CPT/HCPCS: 87070; 87075; 87205; 99213; G0463

== ENCOUNTER 2024-09-12 17:51 | Emergency (ER) | payer OTHER, SELFPAY ==
[2024-09-12 18:13] VITALS: BP 121/90; PULSE 87; RESP 16; TEMP 36.3; O2SAT 99
--- NOTE | 2024-09-12 18:41 | ED.GENADULT ---
HPI - General Adult General Chief complaint: Abdominal Pain Stated complaint: Ovarian Pain Time Seen by Provider: 09/12/24 18:41 Source: patient, RN notes reviewed and old records reviewed Mode of arrival: ambulatory Limitations: no limitations History of Present Illness HPI narrative: 29-year-old female presents to the [facility] with complaints of ?ovarian pain. ? Symptoms started several months ago. Reports that she had a ?ovary drained? over the summer. Patient presents with hoping to get an ultrasound to see if she has an ovarian cyst. Discussed with patient that we are unable to do that she would need to follow-up with her excel developer, has 1 established. If symptoms got work so she should proceed to the emergency room. Denies any chance of . Last menstrual period was 1st week in August. States that she does take Aleve and ibuprofen with some relief. No CVA tenderness, denies any urinary symptoms Onset (ago): month(s) Treatments prior to arrival: NSAID Related Data Home Medications ?Medication ?Instructions ?Recorded ?Confirmed ?Last Taken ?Type bupropion HCl 150 mg 24 hr tablet, 150 mg PO DAILY 02/01/24 09/12/24 02/09/24 05:15 History extended release cholecalciferol (vitamin D3) 50 50 mcg PO DAILY 02/01/24 06/18/24 02/06/24 History mcg (2,000 unit) capsule (Vitamin D3) cyanocobalamin (vitamin B-12) 5,000 mcg sublingual DAILY 02/01/24 06/18/24 02/06/24 History 5,000 mcg sublingual tablet (Vitamin B-12) magnesium 200 mg tablet 200 mg PO DAILY 02/01/24 06/18/24 02/06/24 History omega 3-bzz-iqb-fish oil 1,200 mg 1 cap PO DAILY 02/01/24 06/18/24 02/06/24 History (144 mg-216 mg) capsule (Fish Oil) valacyclovir 1 gram tablet 1,000 mg PO DAILY 02/01/24 06/18/24 02/09/24 05:15 History cetirizine 10 mg tablet 10 mg PO DAILY 05/11/24 06/18/24 Unknown History medroxyprogesterone 10 mg tablet 10 mg PO DAILY 06/18/24 09/12/24 Unknown History metformin 500 mg tablet 500 mg PO DAILY 06/18/24 09/12/24 Unknown History Allergies Allergy/AdvReac Type Severity Reaction Status Date / Time No Known Allergies Allergy Verified 09/12/24 18:13 Review of Systems Review of Systems: All systems reviewed & are unremarkable except as noted in HPI and below Constitutional: Constitutional: Reports no additional constitutional complaints ENT: Reports system reviewed and no additional complaints, except as documented Cardiovascular: Cardiovascular: Reports no additional cardiovascular complaints, Denies chest pain and Denies dyspnea Respiratory: Respiratory: Reports no additional respiratory complaints, Denies chest congestion, Denies cough and Denies dyspnea Gastrointestinal: Gastrointestinal: Reports as per HPI Musculoskeletal: Musculoskeletal: Reports no additional musculoskeletal complaints Integumentary/Breasts: Skin/Breast: Reports system reviewed and no additional complaints, except as docu PMFSH Past Medical History Medical History Herpes simplex Surgical History Surgical History No pertinent past surgical history Family History Family History Mother Family history non-contributory Social History Social History Smoking status: Never smoker Alcohol intake: current Living arrangements: with family Spiritual care concerns: No Comments At the time of my signature, I reviewed and agree with the nursing past medical, surgical, social, and family history. There is no relevant family history pertinent to the patient complaint. Exam Const: General: cooperative, healthy appearing, comfortable, no acute distress, well developed, alert and well nourished Nutritional Appearance: well nourished Orientation/consciousness: patient oriented x3 Limitations: no limitations HENMT: Head: normal to inspection Eyes: General: appearance normal, both eyes and all related structures Alignment and Position: alignment normal Neck: Neck: normal visual inspection, full ROM, no lymphadenopathy and no meningeal signs Chest: Chest palpation & inspection: normal inspection of the chest Resp: Effort & Inspection: normal respiratory effort and able to speak in complete sentences Auscultation: clear to auscultation bilaterally, no crackles, no rales, no rhonchi and no wheezes Cardio: Rate: regular rate Skin: General skin exam: normal color and no rashes or lesions noted Neuro: General: patient oriented x3, gait normal, moves all extremities and no meningeal signs Cognition (Neuro): normal cognition Speech: normal speech Gait exam (Neuro): Normal gait present Extrem: General: normal to inspection, full ROM, capillary refill normal and normal gait Psych: Appearance: grossly normal and well kempt Mental Status: mental status grossly normal Speech and movement: Normal speech and movement present and Clear speech present Affect: normal affect Attitude: cooperative Course Course Level of Care: Express Care Visit Vital Signs Vital signs: Vital Signs Temperature 97.4 F L 09/12/24 18:13 Pulse Rate 87 09/12/24 18:13 Respiratory Rate 16 09/12/24 18:13 Blood Pressure 121/90 09/12/24 18:13 Pulse Oximetry 99 09/12/24 18:13 Temperature 97.4 F L 09/12/24 18:13 Pulse Rate 87 09/12/24 18:13 Respiratory Rate 16 09/12/24 18:13 Blood Pressure 121/90 09/12/24 18:13 Pulse Oximetry 99 09/12/24 18:13 Reviewed Medical Decision Making MDM Narrative Medical decision making narrative: Patient sitting comfortably in exam room. Nontoxic, vitals stable. Patient in no acute distress Patient presents for abdominal discomfort that has been going to intermittently for a couple of months. Patient with a history of ovarian cyst, drained by excel developer provider Patient was hoping to have a testing started before she saw excel developer provider. Explained that we do not have ultrasound nor CT scan available in this clinic Discharge instructions reviewed with patient, as well as provided in writing per nursing staff. The instructions also include specific and strict return/GO TO THE ER as well as f/u information. All questions have been answered, and the patient deny any further questions with discharge and discharge plan. Some parts of this dictation were generated by voice recognition software and may contain typographical and/or grammatical inaccuracies. Differential Diagnosis Differential Diagnosis: Ovarian cyst, ovarian appendicitis, gastroenteritis cramps Medical Records Medical records reviewed: Yes I reviewed the external patient's medical records. Vital Signs Vital Signs: Vital Signs Temperature 97.4 F L 09/12/24 18:13 Pulse Rate 87 09/12/24 18:13 Respiratory Rate 16 09/12/24 18:13 Blood Pressure 121/90 09/12/24 18:13 Pulse Oximetry 99 09/12/24 18:13 Temperature 97.4 F L 09/12/24 18:13 Pulse Rate 87 09/12/24 18:13 Respiratory Rate 16 09/12/24 18:13 Blood Pressure 121/90 09/12/24 18:13 Pulse Oximetry 99 09/12/24 18:13 Reviewed Lab Data Lab results reviewed: Yes I reviewed the patient's lab results. Labs: Reviewed Critical Care Time Critical Care Time Critical Care Time: No Discharge Plan Discharge Clinical Impression: Intermittent abdominal pain Patient Disposition: Home, Self-Care Condition: Stable Instructions: Antibiotic Form, Ovarian Cyst (ED) Additional Instructions: Call your excel developer for follow-up tomorrow morning. For new or worsening symptoms go directly to the emergency room You can take naproxen or ibuprofen as needed. Patient Language: Sami Prescriptions: No Action cetirizine 10 mg Tablet 10 mg PO DAILY metformin 500 mg tablet 500 mg PO DAILY medroxyprogesterone 10 mg tablet 10 mg PO DAILY valacyclovir 1 gram tablet 1,000 mg PO DAILY magnesium 200 mg Tablet 200 mg PO DAILY bupropion HCl 150 mg tablet extended release 24 hr 150 mg PO DAILY cholecalciferol (vitamin D3) [Vitamin D3] 50 mcg (2,000 unit) Capsule 50 mcg PO DAILY omega 3-hfk-wdq-fish oil [Fish Oil] 1,200 (144-216) mg Capsule 1 cap PO DAILY cyanocobalamin (vitamin B-12) [Vitamin B-12] 5,000 mcg Tablet, Sublingual 5,000 mcg SUBLINGUAL DAILY Follow-up/Referrals: Emmanuel Valenzuela MD [Physician] - 3 Days (express care follow up ) PHYSICIAN,[employer] CLE[employer] MACHINE OPERATOR [Primary Care Provider] - Stand Alone Forms: Work/School Release IP Time of Disposition: 18:49
== END 2024-09-12 19:00 | disposition home or self-care (01) ==
PROVIDERS: Emergency Provider Nurse Practitioner
DX: R10.9 Unspecified abdominal pain (principal)
CPT/HCPCS: 99211; G0463

== ENCOUNTER → 2024-11-15 00:22 | Day surgery (SDC) | payer OTHER, SELFPAY ==
[2024-11-04 10:00] VITALS: BMI 34.0
--- NOTE | 2024-11-04 10:15 | PC.NURSE ---
Report to the Outpatient Waiting Room, entrance under the green pavilion located off [facility], at time _0700__ on date _11/15/24_. Planned Procedure Time: __09__.? Time changes happen often and if your time is changed the preop area will call you the afternoon before. - You and your visitor will be asked to self-screen and do not enter if you have any COVID symptoms. Please call surgeon if you need to reschedule. - A mask is optional within the hospital at this time. Patients may have clear liquids (water, carbonated beverages, clear teas, apple juice) until 3 hours prior to surgery with a maximum of 20 ounces. - No food from midnight until time of surgery and no smoking, or chewing tobacco (or any form of nicotine). No chewing gum, candy or mints. - Infants may have breast milk until 4 hours before surgery, infant formula 6 hours prior to surgery. - Children will be allowed to drink immediately following surgery.? If applicable, please bring a bottle or sippy cup to assist with drinking. Juice, water, soda, and popsicles are readily available.? For infants on formula, please bring formula the day of surgery.? Pacifiers are allowed. Take ONLY the following medications with a SIP of water on the morning of surgery: __Valacyclovir, Bupropion____ DO NOT STOP ANY OF YOUR OTHER PRESCRIPTION MEDICATIONS PRIOR TO SURGERY EXCEPT THE FOLLOWING Hold all vitamins and supplements for 3 days per anesthesiologist. Medications to discontinue per physician All vitamins and supplements Date to take last dose__November 11___ Please no make-up, nail argentine, hairspray, perfume, deodorant, or body powder the day of surgery.? No jewelry (including any body piercings) or valuables the day of surgery, leave them at home.? Please take a shower or bath the night before, or the morning of, surgery with an antibacterial soap.? Wear comfortable, loose fitting clothing.? Children are encouraged to wear pajamas. - Jewelry must be removed prior to entering the operating room.? Rings and piercings that are not removed may be cut off. - The hospital will not accept responsibility for valuables.? - Please leave all valuables, including medications, at home the day of surgery. If you are going home after surgery, a licensed front loader residential driver must drive you home.? - NO public transportation without another adult if you receive anesthesia. - We recommend that an adult stay with you for 24 hours following discharge. - We also recommend that you do not drive, make important decision, drink alcoholic beverages, or take any drugs that were not prescribed by your health care provider for at least 24 hours after your discharge time. For Pediatric surgeries, we recommend two adults accompany the child home. Follow any additional instructions given to you from your surgeon. Telephone instructions given to _Yolie__and asked if any additional questions and then verbalized understanding. Patient advised to call surgeon office or pre surgery nurse liaison [phone] if any additional questions.
--- NOTE | 2024-11-13 07:02 | PM.IMHP ---
H&P: HPI History of Present Illness Date/Time: 11/13/24 07:02 Chief Complaint: Pelvic pain and right ovarian cyst Narrative: To pleasant 29-year-old female admitted for laparoscopy and right ovarian cystectomy discussed cyst on ultrasound severe pain conservative measures have been unsuccessful. Risks and benefits reviewed in full she received the [employer] handout entitled laparoscopy. She had all questions answered. She asked to proceed PMFSH Past Medical History Medical History Herpes simplex Surgical History Surgical History No pertinent past surgical history Family History Family History Mother Family history non-contributory Social History Social History Smoking status: Never smoker Alcohol intake: never Living arrangements: alone Spiritual care concerns: No Comments At the time of my signature, I reviewed and agree with the nursing past medical, surgical, social, and family history. There is no relevant family history pertinent to the patient complaint. Meds Home Medications and Allergies Home Medications ?Medication ?Instructions ?Recorded ?Confirmed ?Type bupropion HCl 150 mg 24 hr tablet, 300 mg PO DAILY 02/01/24 11/04/24 History extended release cholecalciferol (vitamin D3) 50 50 mcg PO DAILY 02/01/24 11/04/24 History mcg (2,000 unit) capsule (Vitamin D3) cyanocobalamin (vitamin B-12) 5,000 mcg sublingual DAILY 02/01/24 11/04/24 History 5,000 mcg sublingual tablet (Vitamin B-12) magnesium 200 mg tablet 400 mg PO HS 02/01/24 11/04/24 History valacyclovir 1 gram tablet 1,000 mg PO DAILY PRN hsv2 02/01/24 11/04/24 History cetirizine 10 mg tablet 10 mg PO DAILY PRN allergy symptoms 05/11/24 11/04/24 History medroxyprogesterone 10 mg tablet 10 mg PO DAILY 06/18/24 11/04/24 History metformin 500 mg tablet 1,000 mg PO BID 06/18/24 11/04/24 History itraconazole 100 mg capsule 100 mg PO DAILY 11/04/24 11/04/24 History Allergies Allergy/AdvReac Type Severity Reaction Status Date / Time No Known Allergies Allergy Verified 11/04/24 09:51 Exam Const: General: cooperative, healthy appearing, comfortable and overweight Orientation/consciousness: oriented to person, oriented to place and oriented to time HENMT: Head: normal to inspection Resp: Effort & Inspection: normal respiratory effort Cardio: Rate: regular rate Rhythm: regular rhythm Heart sounds: S1 normal heart sound present and S2 normal heart sound present GI: Inspection: normal to inspection Auscultation: normal bowel sounds : External Female Exam: normal external appearance Speculum Exam - Vagina: normal appearance of the vagina Speculum Exam - Cervix: normal appearance of the cervix Bimanual exam- vagina & uterus: soft Bimanual Exam- Adnexa, other: Adnexal mass present on the right tender Assessment and Plan Assessment and plan (1) Pelvic pain: Code(s): R10.2 - Pelvic and perineal pain Status: Acute (2) Right ovarian cyst: Code(s): N83.201 - Unspecified ovarian cyst, right side Status: Acute Plan Proceed with laparoscopy and destruction of right ovarian cyst possible right cystectomy unlikely right oophorectomy
[2024-11-15] VITALS (10 sets, daily range): BP systolic 103–122; BP diastolic 64–82; PULSE 80–110; RESP 12–16; TEMP 36.3–36.7; O2SAT 97–100
--- OUTSIDE RECORDS SUMMARY | 2024-11-15 00:25 | XMS_ITS | Encounter Summary ---
Author Organization [facility] Address [address] [place] [address] Phone Care Team Providers Care Flooring Helper Name Role Phone SauloLorri barnett [facility] Primary Care Provider [phone] SWEEPER, EDITOR BOOK Unavailable [phone] Reason for Referral * Consult, Test & Initiate Treatment (Routine) - Potential Duplicate Specialty Diagnoses / Procedures Referred By Carlota boateng Referred To Contact Diagnoses Chiari malformation type I (HCC) Екатерина Woodward, STREET SWEEPER, EDITOR BOOK [address] [place] [address] Phone: tel: fax: Ken Jung MD [address] [facility] DEPT NEUROLOGICAL SURGERY, [facility] [address] [place] [address] Phone: tel: fax: Referral ID Status Reason Start Date Expiration Date V isits Requested Visits Authorized [id number] Potential Duplicate 11/14/2024 1 1 Scheduling Instructions Gudelia is being referred to Dr. Jung or other specialist in patient's insurance network for Chiari Malformation type 1 and balance changes. See below for Gudelia's current medications, allergies and problem list. CURRENT MEDS: Current Outpatient Medications: buPROPion, Smoking Deter, (ZYBAN) 150 MG TABLET SR 12 HR, Take 150 mg by mouth daily. (Patient taking differently: Take 300 mg by mouth daily.), Disp: , Rfl: itraconazole (SPORANOX) 100 MG Capsule, Take 100 mg by mouth daily., Disp: , Rfl: ketoconazole (NIZORAL) 2 % Shampoo, Apply daily., Disp: , Rfl: magnesium oxide (MAG-OX) 400 MG Tablet, Take 400 mg by mouth daily., Disp: , Rfl: medroxyPROGESTERone (PROVERA) 10 MG Tablet, , Disp: , Rfl: metFORMIN (GLUCOPHAGE) 500 MG Tablet, Take 500 mg by mouth daily. (Patient taking differently: Take 2,000 mg by mouth daily.), Disp: , Rfl: ondansetron (ZOFRAN) 4 MG Tablet, Take 4 mg by mouth every 8 hours as needed., Disp: , Rfl: Rizatriptan Benzoate 5 MG TABLET DISPERSIBLE, Take 1 Tablet by mouth once as needed for Migraine or Headaches., Disp: 10 Tablet, Rfl: 3 valACYclovir (VALTREX) 1 GM Tablet, Take 1,000 mg by mouth 2 times daily., Disp: , Rfl: No current facility-administered medications for this visit. ALLERGIES: No Known Allergies PROBLEM LIST: There is no problem list on file for this patient. Reason for Visit * Reason Comments Migraine Encounter Details Date Type Department Care Team (Late st Contact Info) Description 11/14/2024 9:00 AM CDT Office Visit [facility] Neurology [facility] [address] [place] [address] Екатерина Woodward APRN, CNS [address] [place] [address] Chiari malformation type I (HCC) (Primary Dx); Episodic migraine Discharge Disposition: Discharged to home or Selfcare Social History Tobacco Use Types Packs/Day Years Used Date Smoking Tobacco: Never Smokeless Tobacco: Never Alcohol Use Standard Drinks/Week Comments Not Currently 0 (1 standard drink = 0.6 oz pur e alcohol) Comments Unknown Sex and Gender Information Value Date Recorded Sex Assigned at Not on file Legal 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 Gender Identity Not on file Sexual Orientation Not on file documented as of this encounter Last Filed Vital Signs Vital Sign Reading Time Taken Comments Blood Pressure 110/80 11/14/2024 9:11 AM CDT Pulse 95 11/14/2024 9:11 AM CDT Temperature 36.8 C (98.2 F) 11/14/2024 9:11 AM CDT Respiratory Rate 16 11/14/2024 9:11 AM CDT Oxygen Saturation 100% 11/14/2024 9:11 AM CDT Inhaled Oxygen Concentration - - Weight 88.5 kg (195 lb 3.2 oz) 11/14/2024 9:11 A M CDT Height 162.6 cm (5' 4 ) 11/14/2024 9:11 AM CDT Body Mass Index 33.51 11/14/2024 9:11 AM CDT documented in this encounter Progress Notes * Екатерина Woodward, STREET SWEEPER, EDITOR BOOK - 11/14/2024 9:00 AM CDT Images from the original note were not included. NEUROLOGY CONSULT Date of Service: 11/14/2024 Assessment and Plan Gudelia was seen today for migraine. Diagnoses and all orders for this visit: Chiari malformation type I (HCC) - Cancel: EXTERNAL NEUROSURGERY REFERRAL; Future - EXTERNAL NEUROSURGERY REFERRAL; Future Episodic migraine Assessment & Plan 1. Chiari malformation type 1 -Referral to neurosurgery 2. Episodic Migraines. -Continue rizatriptan 5 mg prn -Continue Zofran 4 mg prn -Continue Aleve 1 tab PRN -Next appointment in 6 months Reason for office appointment: Migraines and Chiari malformation HPI: History of Present Illness Gudelia Rand is being seen in follow-up today for migraines. She was last seen on 04/22/2024. At that time, she was experiencing 1 to 2 headache days per month, both of which would escalate to migraines. She was taking Aleve and rizatriptan and laying down, and within a couple of hours, the migraines would resolve. The treatment plan included continuing Mag-Ox 400 mg daily, Zofran 4 mg as needed, and rizatriptan 5 mg as needed. Over the past month, Gudelia has experienced 2 episodes of migraines, necessitating early departure from work due to visual disturbances and ocular discomfort during her commute. She typically managesthese episodes with Aleve, reserving rizatriptan for non-working hours due to its potential sedative effects. The combination of Aleve and rizatriptan effectively alleviates her migraines, although one episode persisted for approximately 12 hours despite medication. Gudelia also reports associated neck pain, which she is uncertain if it is related to her headaches or her sleeping position. Additionally, she experiences occasional dizziness, which she attributes to rapid changes in posture. She has noticed a slight decrease in her balance, particularly when descending stairs, leading to increased caution. She has expressed interest in a referral to neurosurgery for further evaluation. Supplemental Information She is having a laparoscopy tomorrow for a 5 cm ovarian cyst. Tx plan includes referral to neurosurgery for Chiari malformation, continuing rizatriptan, Zofran, and Aleve PRN, and next appointment 3 months. Previous hx: Gudelia Rand is being seen in follow up today for migraines. Gudelia was last seen on 08/31/2023. At that time Gudelia was experiencing 4-5 headache days per month of which all became migraines. Tx plan at that time included MRI brain w/without contrast, Xanax 0.5mg x 2 for MRI, Mg, B12, TSH, starting rizatriptan 5mg PRN. Today Gudelia states she is experiencing 1-2 headache days per month of which 1-2 become migraines. Gudelia takes an Aleve and rizatriptan, lays down, and within a couple of hours the migraine resolves. MRI brain revealed Chiari malformation type 1. Images reviewed with Gudelia during appointment. Symptoms of Chiari malformation type 1 exacerbation discussed. We will continue to monitor. Previous hx: Gudelia Rand is being seen in the office today after being referred by their PCP for migraines. Referral information reviewed. Gudelia Migraine History & Description: When did they begin? 3-4 years ago Any Aura prior? Sometimes sensitive to light and eyes will ache Location? Above right eye; right frontal region; right fronto/parietal and right temporal region Quality or description? Dull, sharp Recent changes in headaches? More frequent Severity when they begin? 4 Severity at worst? 8-9 How long do they last? 1-2 days Any other symptoms during such as Nausea/Vomiting, Photophobia/Phonophobia? Nausea, light sensitivity, dizziness Aggravating factors? Triggers? Smells, stress, alcohol Sleep? 6-8 hours Hydration? 40 oz Caffeine? Not every day but maybe one cup of coffee Do you have to avoid anything when having migraine? How do they impact your daily life? Makes it hard to do every day activities Palliative factors? What may help your migraines? Ice, ice mask, sleeping mask How many headache days a month? 4-5 headache days of which all become migraines; Since starting magnesium her migraines have decreased from 8-12 per month Previous treatments that have worked? magnesium Previous treatments that have not worked? Aleve-for most part makes go away Any other medical history? Such as Head injury? No, seasonal allergies Past Medical History Positives Diagnosis Date Anxiety History of PCR DNA positive for HSV2 Hyperhidrosis Migraine Past Surgical History: Procedure Laterality Date BREAST REDUCTION SURGERY GALLBLADDER SURGERY TUBAL LIGATION Family History Problem Relation Age of Onset Obstructive Sleep Apnea Mother Hypertension Mother Polycystic Ovarian Syndrome Mother Social History Tobacco Use Smoking status: Never Smokeless tobacco: Never Substance Use Topics Alcohol use: Not Currently No Known Allergies Current Outpatient Medications: buPROPion, Smoking Deter, (ZYBAN) 150 MG TABLET SR 12 HR, Take 150 mg by mouth daily. (Patient taking differently: Take 300 mg by mouth daily.), Disp: , Rfl: itraconazole (SPORANOX) 100 MG Capsule, Take 100 mg by mouth daily., Disp: , Rfl: ketoconazole (NIZORAL) 2 % Shampoo, Apply daily., Disp: , Rfl: magnesium oxide (MAG-OX) 400 MG Tablet, Take 400 mg by mouth daily., Disp: , Rfl: medroxyPROGESTERone (PROVERA) 10 MG Tablet, , Disp: , Rfl: metFORMIN (GLUCOPHAGE) 500 MG Tablet, Take 500 mg by mouth daily. (Patient taking differently: Take2,000 mg by mouth daily.), Disp: , Rfl: ondansetron (ZOFRAN) 4 MG Tablet, Take 4 mg by mouth every 8 hours as needed., Disp: , Rfl: Rizatriptan Benzoate 5 MG TABLET DISPERSIBLE, Take 1 Tablet by mouth once as needed for Migraine orHeadaches., Disp: 10 Tablet, Rfl: 3 valACYclovir (VALTREX) 1 GM Tablet, Take 1,000 mg by mouth 2 times daily., Disp: , Rfl: Review of Systems: A 14 point Review of Systems is obtained, and is negative other than that mentioned in the History of Present Illness. Objective: VITALS: Blood pressure 110/80, pulse 95, temperature 98.2 ??F (36.8 ??C), resp. rate 16, height 5' 4 (1.626 m), weight 195 lb 3.2 oz (88.5 kg), SpO2 100%. Weight: Wt Readings from Last 1 Encounters: 11/14/24 195 lb 3.2 oz (88.5 kg) Body mass index is 33.51 kg/m??. EXAM: General appearance: alert, no distress, cooperative, appears stated age Head: Normocephalic, without obvious abnormality, atraumatic Extremities: extremities normal, atraumatic, no cyanosis or edema Neurologic: Mental: Fully alert and oriented to time, place, person, situation. There is no problem with concentration and attention. Verbal recall-normal. Visuospatial skills- normal. Fund of knowledge is good. Memory is good for recent and remote events. On cranial nerve exam, CN II: visual león are full to confrontation. Fundi are clear without hemorrhage or exudate, discs are sharp.CN III: Pupils are equal, round and reactive bilaterally; CN III,IV, extraocular movements are full with normal saccades and normal pursuits. CN VIII: Hearing isintact bilaterally. CN V: Facial sensation is intact; CN VII: face is symmetric. CN IX: Palate eleva yannick symmetrically. CN XII: Tongue is midline. CN XI: Shrug is 5/5. A motor examination was performed Muscles Tested Right Left Deltoid 5/5 5/5 Biceps 5/5 5/5 Triceps 5/5 5/5 Wrist Flexors 5/5 5/5 Wrist Extensors 5/5 5/5 Data Review: A1C (BACK OFFICE) Order: [id number] Component Ref Range & Units 1 mo ago HGB A1C % 5.3 Resulting Agency [facility] Specimen Collected: 10/10/24 Performed by: [facility] Last Resulted: 10/10/24 [facility] Result Received: 11/14/24 09:08 Contains abnormal data URINALYSIS Order: [id number] Component Ref Range & Units 1 mo ago COLOR (U) ORANGE Comment: INTERPRET DIPSTICK RESULTS WITH CAUTION. RESULTS MAY BE INACCURATE DUE TO COLOR OF URINE. TRANSPARENCY CLEAR CLOUDY Abnormal SPECIFIC GRAVITY (U) 1.003 - 1.040 1.010 U PH 5.0 - 9.0 7.0 PROTEIN RANDOM (U) NEGATIVE 2+ Abnormal Comment: INTERPRET DIPSTICK RESULTS WITH CAUTION. RESULTS MAY BE INACCURATE DUE TO COLOR OF URINE. GLUCOSE (U) NEGATIVE 1+ Abnormal Comment: INTERPRET DIPSTICK RESULTS WITH CAUTION. RESULTS MAY BE INACCURATE DUE TO COLOR OF URINE. KETONES MG/DL (U) NEGATIVE TRACE Abnormal Comment: INTERPRET DIPSTICK RESULTS WITH CAUTION. RESULTS MAY BE INACCURATE DUE TO COLOR OF URINE. BILIRUBIN (U) NEGATIVE 1+ Abnormal Comment: INTERPRET DIPSTICK RESULTS WITH CAUTION. RESULTS MAY BE INACCURATE DUE TO COLOR OF URINE. BLOOD (U) NEGATIVE TRACE Abnormal Comment: INTERPRET DIPSTICK RESULTS WITH CAUTION. RESULTS MAY BE INACCURATE DUE TO COLOR OF URINE. UROBILINOGEN 0.0 - 2.0 EU/DL >8.0 High Comment: INTERPRET DIPSTICK RESULTS WITH CAUTION. RESULTS MAY BE INACCURATE DUE TO COLOR OF URINE. NITRITES NEGATIVE POSITIVE Abnormal Comment: INTERPRET DIPSTICK RESULTS WITH CAUTION. RESULTS MAY BE INACCURATE DUE TO COLOR OF URINE. LEUKOCYTES (U) NEGATIVE 3+ Abnormal Comment: INTERPRET DIPSTICK RESULTS WITH CAUTION. RESULTS MAY BE INACCURATE DUE TO COLOR OF URINE. RBC/HPF 0 - 3 /HPF 4-9 Abnormal WBC/HPF 0 - 3 /HPF 50-75 Abnormal EPI/HPF /HPF 20-30 BACTERIA (U) NONE SEEN 1+ Abnormal Resulting Agency [facility] Specimen Collected: 09/18/24 15:14 Performed by: [facility] Last Resulted: 09/18/24 19:42 Re[facility] Result Received: 11/14/24 09:08 HEPATITIS C ANTIBODY ([facility] ONLY) Order: [id number] Component Ref Range & Units 2 mo ago HEPATITIS C AB NON-REACTIVE NON-REACTIVE Comment: ANTIBODIES TO HCV NOT DETECTED. DOES NOT EXCLUDE THE POSSIBILITY OF EXPOSURE TO HCV. Resulting Agency [facility] Specimen Collected: 09/06/24 09:24 Performed by: [facility] Last Resulted: 09/06/24 19:38 Received [facility] Result Received: 11/14/24 09:08 HEPATITIS B SURFACE AG, EIA Order: [id number] Component Ref Range & Units 2 mo ago HEPATITIS B SURFACE AG NON-REACTIVE NON-REACTIVE Comment: HBsAg NOT DETECTED. Resulting Agency [facility] Specimen Collected: 09/06/24 09:24 Performed by: [facility] Last Resulted: 09/06/24 19:38 Received From: [facility] Result Received: 11/14/24 09:08 Contains abnormal data BASIC METABOLIC PANEL Order: [id number] Component Ref Range & Units 2 mo ago SODIUM S/P/B 136 - 145 MMOL/L 141 POTASSIUM S/P/B 3.5 - 5.1 MMOL/L 4.2 CHLORIDE S/P/B 98 - 107 MMOL/L 103 CO2 21 - 32 MMOL/L 28.1 GLUCOSE 70 - 99 MG/DL 128 High BUN 7 - 18 MG/DL 9 CREATININE S/P/B 0.55 - 1.02 MG/DL 0.87 CALCIUM S/P/B 8.4 - 10.5 MG/DL 8.9 ANION GAP 5 - 15 MMOL/L 9.9 Comment: REFERENCE RANGE NOT ESTABLISHED OSMOLALITY (CALC) MOSM/KG 292 Comment: REFERENCE RANGE NOT ESTABLISHED GFR ESTIMATE >90 ML/MIN/1.73 M2 >90 GFR NOTES GFR REFERENCES: Comment: THE ESTIMATED GFR IS CALCULATED USING THE 2020 CKD-EPI EQUATION. THE FOLLOWING CATEGORIES FOR GRADING RENAL FUNCTION ARE RECOMMENDED BY THE INTERNATIONAL SOCIETY OF NEPHROLOGY (KDIGO 2012 CLINICAL PRACTICE GUIDELINE). G1,NORMAL OR HIGH: >89 ml/min/1.73 m2 G2,MILDLY DECREASED: 60-89 ml/min/1.73 m2 G3A,MILDLY TO MODERATELY DECREASED: 45-59 ml/min/1.73 m2 G3B,MODERATELY TO SEVERELY DECREASED: 30-44 ml/min/1.73 m2 G4,SEVERELY DECREASED: 15-29 ml/min/1.73 m2 G5,KIDNEY FAILURE: <15 ml/min/1.73 m2 Resulting Agency [facility] Specimen Collected: 09/06/24 09:24 Performed by: [facility] Last Resulted: 09/06/24 16:12 [facility] Result Received: 11/14/24 09:08 I personally reviewed the above labs and radiological studies (images if available and reports), and agree with the radiologist unless stated above. By: Екатерина Woodward APRN, CNS, 11/14/2024, 9:52 AM CDT Primary Care Physician: CHUY OROSCO documented in this encounter Plan of Treatment Upcoming Encounters Date Type Department Care Team (Late st Contact Info) Description 05/19/2025 9:30 AM CDT Office Visit [facility] Neurology [facility] [address] [place] [address] Екатерина Woodward APRN, CNS [address] [place] [address] Scheduled Referrals Name Type Priority Associated Diagnoses Orde r Schedule EXTERNAL NEUROSURGERY REFERRAL Outpatient Referral Routine Chiari malformation type I (HCC) Expected: 11/14/2024, Expires: 11/14/2025 documented as of this encounter Visit Diagnoses Diagnosis Chiari malformation type I (HCC)- Primary Compression of brain Episodic migraine documented in this encounter Care Teams Flooring Helper Relationship Specialty Start Date End Date Lorri Vernon PAC [place] [address] PCP - General Physician Director Selection And Administration 08/24/23 Екатерина Woodward APRN, CNS [address] [place] [address] Nurse Practitioner Advanced Practice Nurse 08/31/23 documented as of this encounter
--- OUTSIDE RECORDS SUMMARY | 2024-11-15 00:25 | XMS_ITS | Data Portability ---
Author Organization [place] - [facility], [facility] Address [facility] [address] [place] [address] Assessment No assessment recorded. Plan of Treatment Reminders Order Date Submit Date Provider Last Modified By Organization Details Last Modified Time Details Appointments None recorded. Lab drug screen, urine - ethos 2015 016 [email or web address] [facility], [address] [place], [address], 6 15:09:02 Referral None recorded. Procedures None recorded. Surgeries None recorded. Imaging None recorded. Medication Orders clonazepam 0.5 mg tablet 2015 016 DBA_PATCH_ [id number] [id number], [address] [place] [address], [address], 6 04:15:12 clonazepam 0.5 mg tablet 2015 016 DBA_PATCH_ [id number] [facility], [address] [place] [address], [address], 6 04:15:01 clonazepam 0.5 mg tablet 2015 016 [email or web address] [id number], [address] [place], [address], 6 17:55:49 Cipro 500 mg tablet 02/22/ 2016 02/22/2 016 INTERFACE [id number], [address] [place], [address], 6 11:25:03 ondansetro n HCl 8 mg tablet 2015 016 INTERFACE [id number], [address] [place], [address], 6 11:25:04 clonazepam 0.5 mg tablet 2015 016 [email or web address] [id number], [address] [place], [address], 6 10:00:11 Patient TargetsNo targets recorded. Patient Instructions Encounter Date Encounter Id Patient Instructions Last Modified By Organization Details Last Modified Time 08/25/2015 [id number] anxiety disorder : care instructions Not available 08/25/2015 10:10:33 10/05/2015 [id number] food poisoning: care instructions Not available 10/05/2015 11:27:53 11/05/2015 [id number] anxiety disorder : care instructions Not available 11/08/2015 22:04:21 01/07/2016 [id number] anxiety disorder : care instructions [email or web address] [id number] Not available 07/30/2016 04:15:01 03/08/2016 [id number] anxiety disorder : care instructions [email or web address] [id number] Not available 07/30/2016 04:15:12 Reason for Referral None Reported. Results Created Date Observation Date Name Description Value Unit Range Abnormal Flag Note LastModifiedBy Organization Detail LastModifiedTime 09/25/19 16 09/26/2015 lipid panel , serum cholesterol, total 124 mg/dL 125-20 0 low Not Available [facility] [address] [facility] [place], [address], 09/26/2015 07:48:09 09/25/19 16 09/26/2015 lipid panel , serum HDL cholesterol 43 mg/dL > or = 46 low Not Available [facility] [address] [place], [address], 09/26/2015 07:48:09 09/25/19 16 09/26/2015 lipid panel , serum triglyceride s 124 mg/dL <150 normal Not Available [facility] [address] [facility] [place], [address], 09/26/2015 07:48:09 09/25/19 16 09/26/2015 lipid panel , serum LDL-choleste rol 56 mg/dL _(arnav c) <130 normal Ni able range <100 mg/dL for patie nts with CHD or diabe yannick and <70 mg/dL for diabe tic patie nts with known heart disea se. Not Available [facility] [address] [facility] [place], [address], 09/26/2015 07:48:09 09/25/19 16 09/26/2015 lipid panel , serum chol/HDLC ratio 2.9 (calc ) < or = 5.0 normal Not Available [facility] [address] [place], [address], 09/26/2015 07:48:09 09/25/19 16 09/26/2015 lipid panel , serum non HDL cholesterol 81 mg/dL _(arnav c) normal Targe t for non-H DL golden stero l is 30 mg/dL highe r than LDL golden stero l targe t. Not Available [facility] [address] [facility] [place], [address], 09/26/2015 07:48:09 09/25/19 16 09/26/2015 hepat ic funct ion panel , serum protein, total 7.3 g/dL 6.1-8. 1 normal Not Available [facility] [address] [facility] [place], [address], 09/26/2015 07:48:10 09/25/19 16 09/26/2015 hepat ic funct ion panel , serum albumin 4.1 g/dL 3.6-5. 1 normal Not Available [facility] [address] [facility] [place], [address], 09/26/2015 07:48:10 09/25/19 16 09/26/2015 hepat ic funct ion panel , serum globulin 3.2 g/dL_ (calc ) 1.9-3. 7 normal Not Available [facility] [address] [place] [address], [address], 09/26/2015 07:48:10 09/25/19 16 09/26/2015 hepat ic funct ion panel , serum albumin/glob ulin ratio 1.3 (calc ) 1.0-2. 5 normal Not Available [facility] [address] [place] [address], [address], 09/26/2015 07:48:10 09/25/19 16 09/26/2015 hepat ic funct ion panel , serum bilirubin, total 0.2 mg/dL 0.2-1. 2 normal Not Available [facility] [address] [place], [place] [address], [address], 09/26/2015 07:48:10 09/25/19 16 09/26/2015 hepat ic funct ion panel , serum bilirubin, direct 0.0 mg/dL < or = 0.2 normal Not Available [facility] [address], [address], 09/26/2015 07:48:10 09/25/19 16 09/26/2015 hepat ic funct ion panel , serum bilirubin, indirect 0.2 mg/dL _(arnav c) 0.2-1. 2 normal Not Available [facility] [address] [place] [address], [address], 09/26/2015 07:48:10 09/25/19 16 09/26/2015 hepat ic funct ion panel , serum alkaline phosphatase 62 U/L 33-115 normal Not Available [facility] [address] [facility], [place], [address], 09/26/2015 07:48:10 09/25/19 16 09/26/2015 hepat ic funct ion panel , serum AST 16 U/L 10-30 normal Not Available [facility] [address] [place], [address], 09/26/2015 07:48:10 09/25/19 16 09/26/2015 hepat ic funct ion panel , serum ALT 17 U/L 6-[address] to have a [employer] copy faxed has been anais ulloag yomi. Zeeshan marquez to: [phone] Not Available [facility] [address] [facility], [place], [address], 09/26/2015 07:48:10 11/05/19 16 11/05/2015 pdf repor t abnormal status negative Not Available [facility] [address] [place] [address], [address], 11/10/2015 10:59:34 11/05/19 16 11/05/2015 pdf repor t abnormal status positive Not Available [facility] [address] [place] [address], [address], 11/10/2015 10:59:34 11/05/19 16 11/05/2015 pdf repor t abnormal status resistant Not Available [facility] [address] [place] [address], [address], 11/10/2015 10:59:34 11/05/19 16 11/05/2015 pdf repor t abnormal status negative Not Available [facility] [address] [place] [address], [address], 11/12/2015 13:00:20 11/05/19 16 11/05/2015 pdf repor t abnormal status positive Not Available [facility] [address] [place] [address], [address], 11/12/2015 13:00:20 11/05/19 16 11/12/2015 resul ts creatinine 108.97 mg/dL > 20 normal Not Available [facility] [address] [place], [address], 11/12/2015 13:00:19 11/05/19 16 11/12/2015 resul ts methylmaloni c acid 1.0 ug/mg 0.0 - 2.3 negative This resul t falls withi n the israel l range . Methy lmalo francesco Acid (MMA) is an indic ator of Vitam in B12 statu s. Not Available [facility] [address] [place], [address], 11/12/2015 13:00:19 11/05/19 16 11/12/2015 resul ts homocysteine 7.16 ug/mg 0.00 - 1.22 positive [place] Homoc ystei ne is an indic ator of essen tial vitam in (B6, B12, and/o r folat e) defic ienci es. [place] Homoc ystei ne has also been recog nized as a risk facto r for cardi ovasc ular disea se. Not Available [facility] [address] [place] [address], [address], 11/12/2015 13:00:19 11/05/19 16 11/12/2015 resul ts xanthurenate 0.32 ug/mg 0.00 - 0.46 negative This resul t falls withi n the israel l range . Xanth roland te is an indic ator of vitam in B6 statu s. Not Available [facility] [address] [place], [address], 11/12/2015 13:00:19 11/05/19 16 11/12/2015 resul ts pyroglutamat e 39 ug/mg 8 - 40 negative This resul t falls withi n the israel l range . Pyrog lutam ate is an indic ator of gluta thion e statu s. Not Available [facility] [address] [place], [address], 11/12/2015 13:00:19 11/05/19 16 11/12/2015 resul ts vanilmandela te 3.44 ug/mg 0.83 - 4.17 negative This resul t falls withi n the israel l range . Lamine walker late is an indic ator of chron ic stres s. Not Available [facility] [address] [place] [address], [address], 11/12/2015 13:00:19 11/05/19 16 11/12/2015 resul ts quinolinate 7.24 ug/mg 0.00 - 6.26 positive [place] Norm linat e is an indic ator of chron ic infla mmati on, and accum ulati on of this neuro activ e metab olite has been shown to play a centr al role in the devel opmen t of neuro degen erati ve disor ders. Not Available [facility] [address] [place] [address], [address], 11/12/2015 13:00:19 11/05/19 16 11/12/2015 resul ts kynurenate 1.4 ug/mg 0.0 - 2.0 negative This resul t falls withi n the israel l range . Kynur enate is an indic ator of chron ic infla mmati on. Not Available [facility] [address] [place] [address], [address], 11/12/2015 13:00:19 11/05/19 16 11/10/2015 resul ts opiates (screen) <300 NG/mL 300 negative Not Available [facility] [address] [place] [address], [address], 11/10/2015 10:59:34 11/05/19 16 11/10/2015 resul ts morphine (conf) <50 NG/mL 50 negative Not Available [facility] [address] [place] [address], [address], 11/10/2015 10:59:34 11/05/19 16 11/10/2015 resul ts oxycodone (screen) <100 NG/mL 100 negative Not Available [facility] [address] [place] [address], [address], 11/10/2015 10:59:34 11/05/19 16 11/10/2015 resul ts fentanyl (conf) <2.0 NG/mL 2.0 negative Not Available [facility] [address] [place] [address], [address], 11/10/2015 10:59:34 11/05/19 16 11/10/2015 resul ts fentanyl metabolite (conf) <10.0 NG/mL 10.0 negative Not Available [facility] [address] [place] [address], [address], 11/10/2015 10:59:34 11/05/19 16 11/10/2015 resul ts meperidine (conf) <75 NG/mL 75 negative Not Available [facility] [address] [place] [address], [address], 11/10/2015 10:59:34 11/05/19 16 11/10/2015 resul ts meperidine metabolite (conf) <75 NG/mL 75 negative Not Available [facility] [address] [place] [address], [address], 11/10/2015 10:59:34 11/05/19 16 11/10/2015 resul ts tramadol (conf) <75 NG/mL 75 negative Not Available [facility] [address] [place] [address], [address], 11/10/2015 10:59:34 11/05/19 16 11/10/2015 resul ts tramadol metabolite (conf) <75 NG/mL 75 negative Not Available [facility] [address] [place] [address], [address], 11/10/2015 10:59:34 11/05/19 16 11/10/2015 resul ts buprenorphin e (conf) <5.0 NG/mL 5.0 negative Not Available [facility] [address] [place] [address], [address], 11/10/2015 10:59:34 11/05/19 16 11/10/2015 resul ts buprenorphin e metabolite (conf) <10.0 NG/mL 10.0 negative Not Available [facility] [address] [place] [address], [address], 11/10/2015 10:59:34 11/05/19 16 11/10/2015 resul ts naloxone (conf) <75 NG/mL 75 negative Not Available [facility] [address] [place] [address], [address], 11/10/2015 10:59:34 11/05/19 16 11/10/2015 resul ts methadone (screen) <300 NG/mL 300 negative Not Available [facility] [address] [place] [address], [address], 11/10/2015 10:59:34 11/05/19 16 11/10/2015 resul ts propoxyphene (conf) <75 NG/mL 75 negative Not Available [facility] [address] [place] [address], 28[address], 11/10/2015 10:59:34 11/05/19 16 11/10/2015 resul ts tapentadol (conf) <75 NG/mL 75 negative Not Available [facility] [address] [place] [address], [address], 11/10/2015 10:59:34 11/05/19 16 11/10/2015 resul ts benzodiazepi anson (screen) >200 NG/mL 200 resistant Not Available [facility] [address] [place] [address], [address], 11/10/2015 10:59:34 11/05/19 16 11/10/2015 resul ts alprazolam metabolite (conf) <40 NG/mL 40 negative Not Available [facility] [address] [place] [address], [address], 11/10/2015 10:59:34 11/05/19 16 11/10/2015 resul ts clonazepam metabolite (conf) 64 NG/mL 40 positive Not Available [facility] [address] [place] [address], [address], 11/10/2015 10:59:34 11/05/19 16 11/10/2015 resul ts lorazepam (conf) <40 NG/mL 40 negative Not Available [facility] [address] [place], [address], 11/10/2015 10:59:34 11/05/19 16 11/10/2015 resul ts nordiazepam (conf) <40 NG/mL 40 negative Not Available [facility] [address] [place], [address], 11/10/2015 10:59:34 11/05/19 16 11/10/2015 resul ts temazepam (conf) <40 NG/mL 40 negative Not Available [facility] [address] [place] [address], [address], 11/10/2015 10:59:34 11/05/19 16 11/10/2015 resul ts oxazepam (conf) <40 NG/mL 40 negative Not Available [facility] [address] [place] [address], [address], 11/10/2015 10:59:34 11/05/19 16 11/10/2015 resul ts triazolam metabolite (conf) <40 NG/mL 40 negative Not Available [facility] [address] [place] [address], [address], 11/10/2015 10:59:34 11/05/19 16 11/10/2015 resul ts cocaine metabolite (BE) (screen) <150 NG/mL 150 negative Not Available [facility] [address] [place], [address], 11/10/2015 10:59:34 11/05/19 16 11/10/2015 resul ts heroin metabolite (6-AM) (conf) <10.0 NG/mL 10.0 negative Not Available [facility] [address] [place] [address], [address], 11/10/2015 10:59:34 11/05/19 16 11/10/2015 resul ts phencyclidin e (pcp) (screen) <25 NG/mL 25 negative Not Available [facility] [address] [place] [address], [address], 11/10/2015 10:59:34 11/05/19 16 11/10/2015 resul ts cthc (screen) <50 NG/mL 50 negative Not Available [facility] [address] [place] [address], [address], 11/10/2015 10:59:34 11/05/19 16 11/10/2015 resul ts methylone (conf) <100 NG/mL 100 negative Not Available [facility] [address] [place] [address], 00709, 11/10/2015 10:59:34 11/05/19 16 11/10/2015 resul ts mephedrone (conf) <100 NG/mL 100 negative Not Available [facility] [address] [place] [address], [address], 11/10/2015 10:59:34 11/05/19 16 11/10/2015 resul ts mdpv (conf) <100 NG/mL 100 negative Not Available [facility] [address] [place] [address], 9[address], 11/10/2015 10:59:34 11/05/19 16 11/10/2015 resul ts MDMA (conf) <100 NG/mL 100 negative Not Available [facility] [address] [place] [address], [address], 11/10/2015 10:59:34 11/05/19 16 11/10/2015 resul ts mda (conf) <100 NG/mL 100 negative Not Available [facility] [address] [place] [address], 484[address], 11/10/2015 10:59:34 11/05/19 16 11/10/2015 resul ts mdea (conf) <100 NG/mL 100 negative Not Available [facility] [address] [place] [address], [address], 11/10/2015 10:59:34 11/05/19 16 11/10/2015 resul ts methamphetam ine (conf) <100 NG/mL 100 negative Not Available [facility] [address] [place] [address], 97[address], 11/10/2015 10:59:34 11/05/19 16 11/10/2015 resul ts amphetamines /MDMA (screen) >500 NG/mL 500 resistant Not Available [facility] [address] [place] [address], 17[address], 11/10/2015 10:59:34 11/05/19 16 11/10/2015 resul ts amphetamine (conf) 223 NG/mL 100 positive Not Available [facility] [address] [place] [address], [address], 11/10/2015 10:59:34 11/05/19 16 11/10/2015 resul ts ritalinic acid (conf) <100 NG/mL 100 negative Not Available [facility] [address] [place] [address], 413[address], 11/10/2015 10:59:34 11/05/19 16 11/10/2015 resul ts barbiturates (screen) <200 NG/mL 200 negative Not Available [facility] [address] [place] [address], [address], 11/10/2015 10:59:34 11/05/19 16 11/10/2015 resul ts gabapentin (conf) <5000 NG/mL 5000 negative Not Available [facility] [address] [place] [address], 712[address], 11/10/2015 10:59:34 11/05/19 16 11/10/2015 resul ts pregabalin (conf) <500 NG/mL 500 negative Not Available [facility] [address] [place] [address], 9[address], 11/10/2015 10:59:34 11/05/19 16 11/10/2015 resul ts zolpidem metabolite (conf) <100 NG/mL 100 negative Not Available [facility] [address] [place] [address], 18854, 11/10/2015 10:59:34 11/05/19 16 11/10/2015 resul ts quetiapine metabolite (conf) <100 NG/mL 100 negative Not Available [facility] [address] [place] [address], 18290, 11/10/2015 10:59:34 11/05/19 16 11/10/2015 resul ts ketamine (conf) <10.0 NG/mL 10.0 negative Not Available [facility] [address] [place] [address], 40763, 11/10/2015 10:59:34 11/05/19 16 11/10/2015 resul ts nicotine metabolite (conf) <100 NG/mL 100 negative Not Available [facility] [address] [place] [address], 31060, 11/10/2015 10:59:34 11/05/19 16 11/10/2015 resul ts ethyl alcohol (screen) <100 mg/dL 100 negative Not Available [facility] [address] [place] [address], 03255, 11/10/2015 10:59:34 11/05/19 16 11/10/2015 resul ts ethyl sulfate (conf) <500 NG/mL 500 negative Not Available [facility] [address] [place] [address], 42081, 11/10/2015 10:59:34 11/05/19 16 11/10/2015 resul ts ethyl glucuronide (conf) <500 NG/mL 500 negative Not Available [facility] [address] [place] [address], 56712, 11/10/2015 10:59:34 11/05/19 16 11/10/2015 resul ts venlafaxine metabolite (conf) <100 NG/mL 100 negative Not Available [facility] [address] [place] [address], 96235, 11/10/2015 10:59:34 11/05/19 16 11/10/2015 resul ts citalopram (conf) <100 NG/mL 100 negative Not Available [facility] [address] [place] [address], 98582, 11/10/2015 10:59:34 11/05/19 16 11/10/2015 resul ts citalopram metabolite (conf) <100 NG/mL 100 negative Not Available [facility] [address] [place], [address], 11/10/2015 10:59:34 11/05/19 16 11/10/2015 resul ts tca (screen) <300 NG/mL 300 negative Not Available [facility] [address] [place] [address], 57048, 11/10/2015 10:59:34 11/05/19 16 11/10/2015 resul ts carisoprodol (conf) <100 NG/mL 100 negative Not Available [facility] [address] [place] [address], 32315, 11/10/2015 10:59:34 11/05/19 16 11/10/2015 resul ts meprobamate (conf) <100 NG/mL 100 negative Not Available [facility] [address] [place] [address], 57948, 11/10/2015 10:59:34 11/05/19 16 11/10/2015 resul ts creatinine 108.97 mg/dL > 20 normal Not Available [facility] [address] [place] [address], 67394, 11/10/2015 10:59:34 11/05/19 16 11/10/2015 resul ts oxidants Not Detect ed mg/dL < 200 normal Not Available [facility] [address] [place] [address], 25315, 11/10/2015 10:59:34 11/05/19 16 11/10/2015 resul ts pH 7.0 4.5 - 9.5 normal Not Available [facility] [address] [place] [address], 92953, 11/10/2015 10:59:34 11/05/19 16 11/10/2015 resul ts specific gravity 1.017 1.003 - 1.050 normal Not Available [facility] [address] [place] [address], 75234, 11/10/2015 10:59:34 11/05/19 16 11/10/2015 resul ts creatinine 108.97 mg/dL > 20 normal Not Available [facility] [address], [place], [address], 11/10/2015 10:59:34 01/08/20 16 01/09/2016 BMP, serum or plasm a glucose 97 mg/dL 65-99 normal Fasti ng refer ence inter ramiro Not Available [facility] [place], [address], 01/09/2016 05:38:40 01/08/20 16 01/09/2016 BMP, serum or plasm a urea nitrogen (BUN) 13 mg/dL 7-25 normal Not Available [facility] [address] [place] [address], [address], 01/09/2016 05:38:40 01/08/20 16 01/09/2016 BMP, serum or plasm a creatinine 0.70 mg/dL 0.50-1 .10 normal Not Available [facility] [place], [address], 01/09/2016 05:38:40 01/08/20 16 01/09/2016 BMP, serum or plasm a eGFR non-afr. syrian 125 mL/mi n/1.7 3m2 > or = 60 normal Not Available [facility] [address] [place] [address], [address], 01/09/2016 05:38:40 01/08/20 16 01/09/2016 BMP, serum or plasm a eGFR 145 mL/mi n/1.7 3m2 > or = 60 normal Not Available [facility] [place], [address], 01/09/2016 05:38:40 01/08/20 16 01/09/2016 BMP, serum or plasm a BUN/creatini ne ratio NOT APPLIC ABLE (calc ) 6-22 Not Available [facility] [address] [facility] [place], [address], 01/09/2016 05:38:40 01/08/20 16 01/09/2016 BMP, serum or plasm a sodium 135 mmol/ L 135-14 6 normal Not Available [facility] [address] [facility] [place], [address], 01/09/2016 05:38:40 01/08/20 16 01/09/2016 BMP, serum or plasm a potassium 4.2 mmol/ L 3.5-5. 3 normal Not Available [facility] [address] [facility] [place], [address], 01/09/2016 05:38:40 01/08/20 16 01/09/2016 BMP, serum or plasm a chloride 102 mmol/ L 98-110 normal Not Available [facility] [address] [place], [address], 01/09/2016 05:38:40 01/08/20 16 01/09/2016 BMP, serum or plasm a carbon dioxide 23 mmol/ L 19-30 normal Not Available [facility] [address] [place], [address], 01/09/2016 05:38:40 01/08/20 16 01/09/2016 BMP, serum or plasm a calcium 9.9 mg/dL 8.6-10 .[address] to have a [employer] estefani copy faxed has been ackno wledg ed. Queue d to: [phone] Not Available [facility] [address] [place], [address], 01/09/2016 05:38:40 Result Notes None recorded. Problems Name Problem SNOMED Code Status Onset Date Resolution Date Notes Provider Name and Address Organization Details Recorded Time Candidiasis of vagina 71843421 Active Aracelis Salinas MD [address] [facility], [place], [address], [place] - [facility] 6 13:42:55 Dysuria 62595194 Active Aracelis Salinas MD [address], [place], [address], [facility] 6 13:42:55 Greater trochanteric pain syndrome 8534625 Active Aracelis Salinas MD [address], [place], [address], [facility] 6 13:42:55 Knee pain Active Aracelis Salinas MD [address], [place], [address], [facility] 6 13:42:55 Acne vulgaris 51732499 Active Aracelis Salinas MD [address] [place], [address], [facility] 6 13:42:55 Neck pain 26345793 Active Aracelis Salinas MD [address] [place], [address], [facility] 6 13:42:55 Bacterial food poisoning 76143238 Active Aracelis Salinas MD [address] [place], [address], [facility] 6 13:42:55 Generalized anxiety disorder 71259506 Active Aracelis Salinas MD [address] [place], [address], [facility] 6 17:55:49 Acne 46684275 Active Aracelis Salinas MD [address] [place], [address], [facility] 6 17:55:49 Pain in thoracic spine 728986083 Active Aracelis Salinas MD [address] [place], [address], [facility] 6 13:42:55 Hypnotic or anxiolytic abuse 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 Medical Equipment None Reported. Allergies No known drug allergies Medications Name Sig Start Date Stop Date Status Note LastModified by Organization Details LastModified Time amoxicillin 500 mg capsule active Not Available Not Available Not Available prednisone 10 mg tablet active Not Available Not Available Not Available doxycycline hyclate 100 mg capsule TAKE 1 CAPSULE TWICE A DAY active Not Available Not Available Not Available paroxetine 10 mg tablet Take 1 tablet every day by oral route for 30 days. active Not Available Not Available No t Available azithromycin 250 mg tablet active Not Available Not Available Not Available tizanidine 4 mg tablet active Not Available Not Available No t Available fluconazole 150 mg tablet active Not Available Not Available Not Available valacyclovir 1 gram tablet active Not Available Not Available Not Available ondansetron HCl 8 mg tablet Take 1 tablet every 8 hours by oral route as needed for 10 days. 2015 active Not Available Not Available Not Avai lable fluconazole 200 mg tablet TAKE 1 TABLET BY MOUTH EVERY DAY active Not Available Not Available No t Available promethazine 12.5 mg tablet Take 1 tablet every 8 hours by oral route. active Not Available Not Available Not Available phenazopyrid ine 200 mg tablet active Not Available Not Available Not Available clonazepam 0.5 mg tablet Take 1 tablet as needed by oral route as needed for 30 days. 2015 active Not Available Not Available Not Avai lable spironolacto ne 100 mg tablet active Not Available Not Available Not Available metronidazol e 500 mg tablet active Not Available Not Available Not Available lidocaine HCl 2 % mucosal jelly active Not Available Not Available Not Available acetaminophe n 300 mg-codeine 30 mg tablet active Not Available Not Available Not Available tretinoin 0.05 % topical cream APPLY TO THE AFFECTED AREA(S) BY TOPICAL ROUTE ONCE DAILY active Not Available Not Available No t Available ciprofloxaci n 500 mg tablet Take 1 tablet twice a day by oral route for 7 days. active Not Available Not Available No t Available clindamycin 1 %-benzoyl peroxide 5 % topical gel APPLY TO THE AFFECTED AREA(S) BY TOPICAL ROUTE 2 TIMES PER DAY IN THEMORNING AND EVENING active Not Available Not Available Not Available sulfamethoxa zole 800 mg-trimethop rim 160 mg tablet active Not Available Not Available Not Available ketorolac 10 mg tablet active Not Available Not Available No t Available Mobic 15 mg tablet Take 1 tablet every day by oral route for 30 days. 2014 active Not Available Not Available Not Avai lable amoxicillin 875 mg tablet active Not Available Not Available Not Available benzoyl peroxide 10 % topical gel apply as directed at [facility] 2011 active Not Available Not Available Not Avai lable hydrocodone 7.5 mg-acetamino phen 325 mg tablet active Not Available Not Available Not Available tobramycin 0.3 % eye drops active Not Available Not Available Not Available minocycline 50 mg capsule active Not Available Not Available Not Available indomethacin 50 mg capsule active Not Available Not Available Not Available Cheratussin AC 10 mg-100 mg/5 mL oral liquid active Not Available Not Available Not Available cefdinir 300 mg capsule active Not Available Not Available N ot Available risperidone 0.5 mg tablet Take 1 tablet every day by oral route at bedtime for 30 days. active Not Available Not Available No t Available naproxen 500 mg tablet TAKE 1 TABLET BY MOUTH TWICE A DAY NEEDED active Not Available Not Available No t Available tretinoin microspheres 0.1 % topical gel Apply by topical route [facility] active Not Available Not Available No t Available Doxycycline 100 mg capsule Take 1 capsule every day by oral route. 2011 active Not Available Not Available Not Avai lable azithromycin 500 mg tablet active Not Available Not Available Not Available Ortho Tri-Cyclen LO (28) 0.18 mg/0.215 mg/0.25 mg-25 mcg tablet Take 1 tablet every day by oral route for 30 days. 2014 active Not Available Not Available Not Avai lable Claravis 20 mg capsule active Not Available Not Available N ot Available Claravis 30 mg capsule active Not Available Not Available N ot Available clindamycin 1.2 % (1 % base)-benzoy l peroxide 5 % topical gel active Not Available Not Available Not Available Aczone 5 % topical gel Apply by topical route in am active Not Available Not Available Not Available Viibryd 40 mg tablet Take 1 tablet every day by oral route for 30 days. active Not Available Not Available No t Available Orsythia 0.1 mg-20 mcg tablet TAKE 1 TABLET BY MOUTH EVERY DAY active Not Available Not Available No t Available Absorica 40 mg capsule active Not Available Not Available N ot Available Vitals Date Recorded Body height Respiratory rate Body mass index (BMI) Heart rate Body weight Systolic blood pressure Diastolic blood pressure Provider Name and Address Organization Details Last Updated DateTime 6 162.56 cm 18 /min 27.8 kg/m2 87 /min 13435.9 6394 g 120 mm[Hg] 69 mm[Hg] [facility] 6 09:46:08 Date Recorded Body height Respiratory rate Heart rate Body mass index (BMI) Body weight Systolic blood pressure Diastolic blood pressure Provider Name and Address Organization Details Last Updated DateTime 6 162.56 cm 18 /min 82 /min 28.7 kg/m2 70548.9 2579 g 106 mm[Hg] 72 mm[Hg] [facility] 6 10:46:30 Date Recorded Body height Body mass index (BMI) Body weight Heart rate Respiratory rate Systolic blood pressure Diastolic blood pressure Provider Name and Address Organization Details Last Updated DateTime 6 162.56 cm 29.7 kg/m2 11322.4 8001 g 100 /min 20 /min 109 mm[Hg] 80 mm[Hg] Jennifer fuentes [facility] 6 13:08:30 Date Recorded Body height Heart rate Body weight Body mass index (BMI) Respiratory rate Systolic blood pressure Diastolic blood pressure Provider Name and Address Organization Details Last Updated DateTime 6 162.56 cm 93 /min 16698.2 8 g 29.8 kg/m2 18 /min 117 mm[Hg] 69 mm[Hg] [facility] 6 13:04:20 Date Recorded Body height Heart rate Body weight Body mass index (BMI) Respiratory rate Systolic blood pressure Diastolic blood pressure Provider Name and Address Organization Details Last Updated DateTime 6 162.56 cm 72 /min 38206.2 2 g 31.1 kg/m2 18 /min 101 mm[Hg] 70 mm[Hg] [facility] 6 10:23:49 Social History Question Answer Notes LastModified by Organizat ion Details LastModified Time Tobacco Smoking Status Never Smoker Not Available [employer] 06/16/2020 03:17:11 Do You Have An Advance Directive? No [id number] Information not available 06/16/2020 What Is Your Level Of Alcohol Consumption? None [id number] Information not available 06/16/2020 What Is Your Level Of Caffeine Consumption? Occasional [id number] Information not available 06/16/2020 What Type Of Diet Are You Following? REGULAR [id number] Information not available 06/16/2020 What Is Your Occupation? Student [id number] Information not available 06/16/2020 Marital Status Single [email or web address] Informatio n not available 08/26/2011 How Much Tobacco Do You Smoke? No [id number] Information not available 06/16/2020 Sex: Unknown Functional Status Question Answer Note LastModified by Organization D etails LastModified Time What is your exercise level? Moderate [id number] Information not available 06/16/2020 Mental Status None recorded. Family History Nothing Reported Notes:adopted. Medical History Condition Response Anxiety Disorder/ depression Y Gynecological History Statement/Question Response Current Control Method Frequency of Cycle (Q days) Obstetrics History GPAL:G 0 P 0 0 0 0 Past Encounters Encounter ID Performer Location Encounter Start Date Encounter Closed Date Diagnosis/Indication Diagnosis SNOMED-CT Code Diagnosis ICD10 Code Diagnosis Note [id number] MAIN OFFICE [address] [place] [address] 08/26/2011 12:33:58 08/26/2011 13:57:29 [id number] MAIN OFFICE [address] [place] [address] 09/29/2011 15:47:32 09/29/2011 16:20:05 [id number] MAIN OFFICE [address] [place] [address] 12/29/2011 15:26:46 12/29/2011 16:16:01 [id number] Aracelis Salinas MD MAIN OFFICE [address] [place] [address] 10/05/2012 15:37:18 10/05/2012 16:03:15 [id number] Aracelis Salinas MD MAIN OFFICE [address] [place] [address] [facility] [place], [place] [address] [place] [address] 1 01/29/2013 11:49:03 01/29/2013 13:06:56 [id number] Aracelis Salinas MD MAIN OFFICE [address] [place] [address] [place], [place] [address] [place] [address] 1 03/01/2013 13:11:52 03/01/2013 14:06:30 [id number] Aracelis Salinas MD MAIN OFFICE [address] [place] [address] [place] [address] [place] [address] 1 05/17/2013 15:50:12 05/17/2013 17:23:46 [id number] Aracelis Salinas MD MAIN OFFICE [address] [place] [address] [place], [place] [address] [place] [address] 06/20/2013 15:43:21 06/20/2013 16:57:29 Generalized anxiety disorder 27653637 Pt is feeling better, but still has some anxiety daytime. Stay on viibryd & increase risperdal 0.5mg bid, prn clonazepam 0.5mg qd Acne 86822034 doing we ll now. [id number] Aracelis Salinas MD MAIN OFFICE [address] [place] [address] [place], [place] [address] [place] [address] 1 07/26/2013 15:34:37 07/26/2013 15:59:58 Generalized anxiety disorder 85383586 Pt [facility] to [facility] & she had an evaluation done & was sent home, she is still on same meds. Pt is feeling better, but still has some anxiety daytime. Stay on viibryd & i risperdal 0.5mg bid, prn clonazepam 0.5mg qd, she does better on clonazepam 0.5mg bid. Acne 15820025 doing we ll now. [id number] MAIN OFFICE [address] [place] [address] [place], [place] [address] [place] [address] 1 01/03/2014 14:44:18 01/03/2014 15:24:24 Generalized anxiety disorder 30287690 Pt is doing well, Off of her viibryd & risperdal. Takes clonazepam q12 prn only. Planning to start college in fall at [employer]. Acne 55252126 doing we ll now. Not on any antibiotic s now. Uses prn aczone cream. [id number] Aracelis Salinas MD MAIN OFFICE [address] [place] [address] [address] [place], [place] [address] [place] [address] 1 01/31/2014 11:25:04 01/31/2014 12:28:06 Generalized anxiety disorder 60827256 Pt is doing well & Takes clonazepam q12 prn only. Planning to start college in fall at [employer]. Acne 07169974 Start ba ck on doxycyclin e 100mg bid & also check on her aczone. add retino A General ex amination of patient 292964756 Pt is seeing glass bulb silverer in [place] next month. Pt wanted to go on Accutane, advised that she discusses the contracept quyen options with Door To Door Selling Agent before that can be considered . [id number] Aracelis Salinas MD MAIN OFFICE [address] [place] [address] [place], [place] [address] [place] [address] 1 03/20/2014 15:03:43 03/20/2014 15:33:49 Generalized anxiety disorder 82094000 Pt is doing well, Off of her viibryd & risperdal. Takes clonazepam q12 prn only. Planning to start college in fall at [employer]. Acne 25591782 doing we ll now. Not on any antibiotic s now. Uses prn aczone cream. General ex amination of patient 660441748 Pt is seeing glass bulb silverer in [place] next month. Pt wanted to go on Accutane, advised that she discusses the contracept quyen options with Door To Door Selling Agent before that can be considered . [id number] Aracelis Salinas MD MAIN OFFICE [address] [facility] [address] [place], [place] [address] [place] [address] 1 04/25/2014 10:32:19 04/25/2014 11:12:43 Acne 15293685 Advised to use aczone cream bid & add clindagel also. take doxy on empty stomach. Generalize d anxiety disorder 20674733 Pt is doing well, not on any meds. [id number] Shirley Avery MAIN OFFICE [address] [facility] [address] [place], [place] [address] [place] [address] 1 06/19/2014 08:39:39 06/19/2014 09:18:12 Acne 58120628 More breakout on face, stay on doxy 100mg bid & aczone, clindagel also. Asking about Accutane, refre to derm. Generalize d anxiety disorder 06735386 Pt is doing well, not on any meds. [id number] Machelle Villeda MAIN OFFICE [address] [facility], [address] [place], [place] [address] [place] [address] 1 08/21/2014 08:59:51 08/21/2014 09:22:32 Long-term drug therapy 428105491 Contraception care 689341371 Pt is ok to start OCP's. LMP 2 days ago. Not sexually active yet per pt. Generalize d anxiety disorder 76275043 Pt is doing well, takes clonazepam prn only. Doing interviews for job, a little nervous, wants to have some clonazepam on hand. use prn only. [id number] Aracelis Salinas MD MAIN OFFICE [address] [place] [address] [address] [place], [place] [address] [place] [address] 1 09/01/2014 09:41:09 09/01/2014 10:51:21 Adult health examination 112616634 Pt is [place] in [place] house [place]. [id number] Aracelis Salinas MD MAIN OFFICE [address] [place] [address] [address] [place], [place] [address] [place] [address] 1 09/05/2014 15:10:38 09/05/2014 15:58:50 Dysuria 79595871 Mild & prn, since starting her OCPs. UA negative. Greater tr ochanteric pain syndrome 2652635 start on Mobic 15mg qd. [id number] Aracelis Salinsa MD MAIN OFFICE [address] [place] [address] [address] [place], [place] [address] [place] [address] 1 09/26/2014 15:11:49 09/26/2014 15:47:29 Contraception care 265648399 Doing well on her OCP's now. No symp of dysuria Generalize d anxiety disorder 28510653 Pt is doing well, takes clonazepam prn only. [id number] Aracelis Salinas MD MAIN OFFICE [address] [place] [address] [address] [place], [place] [address] [place] [address] 1 11/13/2014 13:03:26 11/13/2014 13:36:53 Knee pain 72597815 Pt is having more pain at end of the day.. Ok to use aleve also Generalize d anxiety disorder 43488356 ok to get today off, pt refusing any new meds... d/w pt in detail about current situation. . takes clonazepam prn only. Acne vulgaris 32534147 G oing to derm, planning to start Accutane. also. Pt advised to watch out for Depression etc [id number] Aracelis Salinas MD MAIN OFFICE [address] [facility], [address] [place] , [place] [address] [place] [address] 1 12/22/2014 13:09:43 12/22/2014 15:10:01 Acne 04296362 Doing better, started on acuutane by Derm recently. No issues so far. Generalize d anxiety disorder 98473868 Pt is doing well, takes clonazepam prn only. Contraception care 734031870 Doing well on her OCP's now. No symp of dysuria [id number] Aracelis Salinas MD MAIN OFFICE [address] [facility] [address] [place] , [place] [address] [place] [address] 1 03/05/2015 12:32:39 03/05/2015 12:49:36 Generalized anxiety disorder 75576277 Pt is doing fair, takes clonazepam prn only. Acne 89682617 Doing better, started on acuutane by Derm recently. No issues so far. Denies feeling depressed with it. Contraception care 191470263 Doing well on her OCP's now. No symp of dysuria Neck pain 83592141 Prn, X-ray seen..on indocin & zanaflex prn. [id number] Aracelis Salinas MD MAIN OFFICE [address] [facility], [address] [place] [address] 04/24/2015 15:32:54 04/24/2015 16:02:34 Generalized anxiety disorder 76379282 Pt is doing fair, takes clonazepam prn only. Acne 84321419 Doing better, started on acuutane by Derm recently. No issues so far. Doing well on it. Contraception care 597805082 Doing well on her OCP's now. No symp of dysuria Neck pain 99870223 Pt garvey d PT done on her neck, doing exercises at home. doing better. Pt is planning to have breast reduction done, its causing her neck pain to get worse...se eing her healthcare interpreter Dr Royce Thornton in [facility]. Influenza vaccine needed [id number] Aracelis Salinas MD MAIN OFFICE [address] [place] [address] [facility] [place] , [place] [address] [place] [address] 1 05/29/2015 13:45:33 05/29/2015 14:16:21 Generalized anxiety disorder 28188177 F41.1 Pt is doing fair, takes clonazepam prn only. Acne 71151095 L70.9 Doing better, started on acuutane by Derm recently. No issues so far. Doing well on it. Neck pain 53418188 M54.2 Pt is going for breast reduction at [facility] next week.. excited about it. [id number] Aracelis Salinas MD MAIN OFFICE [address] [place] [address] [place] , [place] [address] [place] [address] 1 06/26/2015 15:48:11 06/26/2015 16:11:09 Generalized anxiety disorder 86653478 F41.1 Pt is doing fair, takes clonazepam prn only. Acne 81911954 L70.9 on acuutane by Derm , No issues so far. Doing well on it. Neck pain 75179170 M54.2 Pt had breast reduction at [facility] done, pt is very happy & feels better now. Pain also better [id number] Aracelis Salinas MD MAIN OFFICE [address] [place] [address] [facility] [place] , [place] [address] [place] [address] 1 08/25/2015 09:39:41 08/25/2015 10:10:47 Acne 73229709 L70.9 on acuutane by Derm , No issues so far. Doing well on it. Generalize d anxiety disorder 43025031 F41.1 Pt is doing fair, takes clonazepam prn only. Still has 8-9 pills left. [id number] Aracelis Salinas MD MAIN OFFICE [address] [place] [address] [facility] [place] [address] [place] [address] 1 10/05/2015 09:54:30 10/05/2015 11:28:09 Acne 42758379 L70.9 on acuutane by Derm , No issues so far. Doing well on it. Bacterial food poisoning 70555305 A05.9 ? e coli, ground beef....Pt advised to start on cipro bid x7days & zofran prn [id number] Aracelis Salinas MD MAIN OFFICE [address] [place] [address] [address] [place], [place] [address] [place] [address] 1 11/05/2015 12:56:57 11/05/2015 13:47:35 Medication monitoring 111340358 Z51.81 Generalize d anxiety disorder 62225224 F41.1 Pt is doing fair, takes clonazepam prn only. Acne 19605381 L70.9 Pt's not on any meds....ac cutane became expensive. .. No issues so far. Doing well on it. [id number] Aracelis Salinas MD MAIN OFFICE [address] [place] [address] [facility] [place], [place] [address] [place] [address] 1 01/07/2016 12:49:40 01/07/2016 13:30:14 Generalized anxiety disorder 66657015 F41.1 Pt is doing fair, takes clonazepam prn only. Acne 19818136 L70.9 Pt's not on any meds....do ing well....on aldactone for facial hair...lab s in am for derm. [id number] Aracelis Salinas MD MAIN OFFICE [address] [place] [address] [address] [place], [place] [address] [place] [address] 1 03/08/2016 09:20:26 03/08/2016 11:17:19 Generalized anxiety disorder 09381821 F41.1 Pt is doing fair, takes clonazepam prn only. Acne 29008388 L70.9 Pt's not on any meds....do ing well....on aldactone for facial hair.. Body mass index 30+ - obesity 893821549 Z68.39 Pt advised in detail about dieting, restrict calorie intake. Health Concerns Section Related Observation LastModified by Organization Detai ls LastModified Time None Recorded Concern Status LastModified by Organization Details LastModified Time None Recorded Advance Directives Directive N: Payers Encounter Date Sequence Insurance Name Policy Number Policy Polanco Covered Member ID Polanco Member ID Guarantor Name 08/25/2015 1 [place] [id number] Karli Rand [id number] 18 Yolie Rand 10/05/2015 1 [place] [id number] Karli Rand [id number] 18 Yolie[place] Rand 11/05/2015 1 [place] [id number] Karli Rand [id number] 18 Yolieoksana Rand 01/07/2016 1 [place] [id number] Karli Rand [id number] 18 Yolie[place] Rand 03/08/2016 1 [place] [id number] Karli Rand [id number] Yolie Rand Notes Date Note Type Note Provider Name and Address Organization Details Recorded Time 08/25/19 16 text/htm l Anxiety/DepressionReported bypatient.Quality:symptoms improved Severity:denies suicidal ideations; able to maintain relationships Context:no major life stressorsGeneric HPI TemplateReported bypatient.Notes:lost her adoptive dad last week, doing okSkin LesionReported bypatient.Location:face; neck; better with accutane Aracelis Salinas MD [address] [place], [address], [facility] 08/27/2015 16:43:32 10/05/19 16 text/htm l Abdominal PainReported bypatient.Location:periumb[facility] arnav Quality:bloating;cramping Severity:moderate Duration:intermittent Onset/Timing:worse; wax/wane Associated Symptoms:no fever; no chills; no heartburnNauseaReported bypatient.Quality:dull Severity:moderate Durationsince monday when she had bad uncooked meat Onset/Timing:abrupt onset Alleviating factors:nothing helpsSkin LesionReported bypatient.Location:face; h/o acne Aracelis Salinas MD [address] [place], [address], [facility] 10/05/2015 21:36:09 11/05/19 16 text/htm l Anxiety/DepressionReported bypatient.Quality:symptoms improved Severity:denies suicidal ideations; able to maintain relationships Context:no major life stressorsNotes:needs refills on her clonazepamSkin LesionReported bypatient.Location:face; h/o acne, pt is off of accutane for few months because of the cost Context:no known triggerThroat PainReported bypatient.Location:sharp pain on tongue x few days Associated Symptoms:stress Aracelis Salinas MD [address] [place], [address], [facility] 11/07/2015 17:55:51 01/07/20 16 text/htm l Anxiety/DepressionReported bypatient.Quality:symptoms improved Severity:denies suicidal ideations; able to maintain relationships Context:no major life stressorsNotes:needs refills on her clonazepamGeneric HPI TemplateReported bypatient.Notes:pt started on aldactone by derm...for facial hair , also trying to lose weightSkin LesionReported bypatient.Location:face; h/o acne, pt is off of accutane for few months because of the cost Context:no known trigger Aracelis Salinas MD [address] [place], [address], [facility] 01/10/2016 14:09:43 03/08/20 16 text/htm l Anxiety/DepressionReported bypatient.Quality:symptoms improved Severity:denies suicidal ideations; able to maintain relationships Context:no major life stressorsNotes:needs refills on her clonazepamFatigueReported bypatient.Duration:intermitte nt Timing:better Context:symptoms improve on weekends/vacation; no problems/stress at work or home Modifying Factors:no new stressors in life; taking vitaminsGeneric HPI TemplateReported bypatient.Notes:on aldactone by derm...for facial hair , still trying to lose weight but pt is not on a proper diet...Skin LesionReported bypatient.Location:face; h/o acne, pt is off of accutane for few months because of the cost Context:no known triggerNotes:Skin still looks good Aracelis Salinas MD [address] [place], [address], [place] - [facility] 03/09/2016 22:12:02 OBGyn Episode No OBEpisode recorded.
--- OUTSIDE RECORDS SUMMARY | 2024-11-15 00:25 | XMS_ITS | Encounter Summary ---
Author Organization [facility] Address [facility] [place] [address] Care Team Providers Care Charhouse Worker Name Role Phone Carol Campos DO Primary Care Provider [phone] Encounter Details Date Type Department Care Team (Late Contact Info) Description 08/26/2024 MyChart Message Enc [facility] [place] [address] [place], [place] [id number] Carol Campos DO [address] [place], [place] [id number] RX Social History Tobacco Use Types Packs/Day Years Used Date Smoking Tobacco: Never Smokeless Tobacco: Never Alcohol Use Standard Drinks/Week Comments Not Currently 1 (1 standard drink = 0.6 oz pur e alcohol) AUDIT-C Answer Date Recorded Q1: How often do you have a drink containing alc ohol? Never 11/25/2020 Average Number of Drinks Not on file 021 Frequency of Binge Drinking Not on file 11/12 PHQ-2 Answer Date Recorded Patient Health Questionnaire-2 Score 0 08/23/2024 Comments No Sex and Gender Information Value Date Recorded Sex Assigned at Female 09/27/2024 10:50 AM FRONT OFFICE DEVELOPER Legal Sex Female 1:41 PM CDT Gender Identity Female 09/27/2024 10:50 AM FRONT OFFICE DEVELOPER Sexual Orientation Straight 08/22/2024 11 :52 AM FRONT OFFICE DEVELOPER documented as of this encounter Plan of Treatment Upcoming Encounters Date Type Department Care Team (Late Contact Info) Description 11/29/2024 3:00 PM CDT Office Visit [facility] [place] [address] [place] [address] Carol Campos DO [address] [facility] [address] [place] [address] documented as of this encounter Visit Diagnoses Not on filedocumented in this encounter Additional Health Concerns Infection Onset Date Last Indicated Resolved Time COVID-19 Rule Out 09/18/2024 09/18/2024 09/18/2024 3:44 PM FRONT OFFICE DEVELOPER Influenza - Seasonal 09/18/2024 09/18/2024 025 12:32 AM FRONT OFFICE DEVELOPER Assessment Noted Time PHQ-9 Depression Total Score: 1 08/23/19 25 2:42 PM FRONT OFFICE DEVELOPER documented as of this encounter Care Teams Charhouse Worker Relationship Specialty Start Date End Date Carol Campos DO [address] [facility] [address] [place] [address] PCP - General FAMILY PRACTICE 07/19/24 documented as of this encounter
--- OUTSIDE RECORDS SUMMARY | 2024-11-15 00:25 | XMS_ITS | Referral Summary ---
Author Organization [facility] Address [address] [place] [address] Care Team Providers Care Java Programmer Analyst Name Role Phone Lorri Vernon Primary Care Provider + Allergies No known active allergies Medications valACYclovir (VALTREX) 1 gram tablet Take 1 tablet (1,000 mg total) by mouth daily Active buPROPion XL (WELLBUTRIN XL) 300 mg 24 hr tablet daily 2 Active clindamycin (CLEOCIN T) 1 % swab 2 Active fluticasone propionate (FLONASE) 50 mcg/actuation nasal spray 2 Active ketoconazole (NIZORAL) 2 % cream 04/28/20 2 2 Active Victoza 3-Daniel 0.6 mg/0.1 mL (18 mg/3 mL) injection 2 Active loratadine (CLARITIN REDITABS) 10 mg disintegrating tablet 8 Active Drysol 20 % external solution 3 Active ondansetron ODT (ZOFRAN-ODT) 4 mg disintegrating tablet 3 Active polyethylene glycol (MIRALAX) 17 gram/dose powder 3 Active magnesium oxide (MAG-OX) 400 mg (241.3 mg elemental magnesium) tablet 3 Active buPROPion XL (WELLBUTRIN XL) 150 mg 24 hr tablet Take 1 tablet (150 mg total) by mouth daily Active medroxyPROGESTERone (PROVERA) 10 mg tablet Take 1 tablet (10 mg total) by mouth daily 4 Active metFORMIN (GLUCOPHAGE) 500 mg tablet Take 1 tablet (500 mg total) by mouth daily Active itraconazole (SPORANOX) 100 mg capsule Take 1 capsule (100 mg total) by mouth daily Active rizatriptan FREIGHT INSPECTOR (MAXALT-FREIGHT INSPECTOR) 5 mg disintegrating tablet Take 1 tablet (5 mg total) by mouth daily as needed 4 Active Active Problems Problem Noted Date Diagnosed Date Anxiety 06/06/2024 Obesity (BMI 30.0-34.9) 06/06/2024 Atypical chest pain 06/06/2024 Chest pain 06/06/2024 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 States she has been utilizing compression therapy more consistently which has been helping her symptoms when she does wear them. The varicose vein to her right medial thigh that she is concerned about is minimal and small. Surgical intervention is not warranted at this time. She is agreeable to continuation of consistent compression therapy to help minimize her symptoms of leg heaviness and achiness with prolonged periods of standing. Plan: Return as needed. Assessment & Plan (06/21/2022 1:24 PM BENCH LAY OUT TECHNICIAN): History of right medial thigh varicose vein has been present for the past several months. She does have a bilateral lower extremity heaviness and achiness that is exacerbated with. The longstanding. She has worn compression therapy off and on for the past several months which seems to help her symptoms somewhat. Denies any problems with swelling. Seen with Dr. Granger. Plan: Obtain a venous reflux study and return within 2 weeks to discuss results. GERD (gastroesophageal reflux disease) Palpitations Sinus arrhythmia Incomplete right bundle branch block Immunizations Immunization Administration Dates Next Due DTP 1995 DTP / HiB 05/03/1996 Hep B, Adolescent or Pediatric 05/03/1996,1995 HiB 1995 OPV 05/03/1996,1995 Social History Tobacco Use Types Packs/Day Years Used Date Smoking Tobacco: Never Cigarettes Smokeless Tobacco: Never Tobacco Cessation:Counseling Given: Not Answered AUDIT-C Answer Date Recorded Q1: How often do you have a drink containing alc ohol? 2-4 times a month 05/03/2021 Q2: How many drinks containi ng alcohol do you have on a typical day when you are drinking? 1 or 2 05/03/2021 Q3: How often do you have si x or more drinks on one occasion? Never 05/03/2021 Comments No Sex and Gender Information Value Date Recorded Sex Assigned at Not on file Legal Sex Female 3:42 PM BENCH LAY OUT TECHNICIAN Gender Identity Female 03/14/2023 2:46 PM CDT Sexual Orientation Choose not to disclose 2024 3:29 PM BENCH LAY OUT TECHNICIAN Last Filed Vital Signs Vital Sign Reading Time Taken Comments Blood Pressure 112/72 06/06/2024 2:18 PM CDT Pulse 101 06/06/2024 2:18 PM CDT Temperature 37.1 C (98.7 F) 04/03/2023 3:34 PM CDT Respiratory Rate 16 04/03/2023 3:34 PM CDT Oxygen Saturation 99% 06/06/2024 2:18 PM CDT Inhaled Oxygen Concentration - - Weight 89.4 kg (197 lb) 06/06/2024 2:18 PM CDT Height 162.6 cm (5' 4 ) 06/06/2024 2:18 PM CDT Body Mass Index 33.81 06/06/2024 2:18 PM CDT Plan of Treatment Not on file Insurance [facility] CHOICE PLUS [facility] CHOICE PLUS Care Teams Java Programmer Analyst Relationship Specialty Start Date End Date Lorri Vernon PA PCP - General 08/24/20
--- OUTSIDE RECORDS SUMMARY | 2024-11-15 00:25 | XMS_ITS | Clinical Summary ---
Author Organization [facility] Address [address] [place] [address] Care Team Providers Care Linecasting Machine Keyboard Operator Name Role Phone Carol Campos Primary Care Provider [phone] Allergies No known active allergies Medications magnesium oxide (MAG-OX) 400 (240 Mg) MG tablet Take 1 tablet (400 mg total) by mouth daily. 024 Active medroxyPROGESTER one (PROVERA) 10 MG tablet Take 1 tablet (10 mg total) by mouth see administration instructions. Pt takes for 10 days every month. Days 11-21 024 Active ondansetron (ZOFRAN) 4 MG tablet Take 1 tablet (4 mg total) by mouth every 8 (eight) hours as needed for Nausea. Active rizatriptan (MAXALT-REHAB TECH) 5 MG disintegrating tablet Take 1 tablet (5 mg total) by mouth daily as needed. 024 Active Clindamycin Phosphate 1 % SWAB USE 1 SWAB TOPICALLY TO AFFECTED AREA TWICE DAILY 025 Active lidocaine-priloc yousif (EMLA) cream Apply topically as needed (pain). 025 Active valACYclovir (VALTREX) 500 MG tablet Take 1 tablet (500 mg total) by mouth daily. Active loratadine (CLARITIN) 10 MG tablet Take 1 tablet (10 mg total) by mouth daily. Active ketoconazole (NIZORAL) 2 % cream APPLY CREAM TOPICALLY TO AFFECTED AREA 1-2 TIMES DAILY UNTIL CLEAR. THEN USE NEEDED FOR FLARES 025 Active metFORMIN (GLUCOPHAGE) 500 MG tabletIndication s:PCOS (polycystic ovarian syndrome) Take 2 tablets (1,000 mg total) by mouth 2 (two) times daily with meals for 30 days. 120 tablet 025 2024 Active buPROPion XL (WELLBUTRIN XL) 300 MG 24 hr tabletIndication s:Moderate episode of recurrent major depressive disorder (CMS/HCC) Take 1 tablet (300 mg total) by mouth daily. 31 tablet 2 025 2024 Active buPROPion XL (WELLBUTRIN XL) 300 MG 24 hr tabletIndication s:Moderate episode of recurrent major depressive disorder (CMS/HCC) Take 1 tablet (300 mg total) by mouth daily. 90 tablet 024 2024 Discontinued metFORMIN (GLUCOPHAGE) 500 MG tabletIndication s:PCOS (polycystic ovarian syndrome) Take 1 tablet (500 mg total) by mouth 2 (two) times daily with meals. 180 tablet 024 2024 Discontinued Cholecalciferol (VITAMIN D3) 50 MCG (1999) Chew TabIndications:g ummies Chew 1 each by mouth daily. Indications: gummies 2024 Discontinued(D ose adjustment) phenylephrine-mi neral oil-petrolatum (PREPARATION H) rectal ointment Place rectally 2 (two) times daily as needed for Hemorrhoids. 2024 Discontinued(T herapy completed) polyethylene glycol (MIRALAX) 17 GM/SCOOP powderIndication s:Constipation, unspecified constipation type Take 17 g by mouth 2 (two) times daily for 14 days. Dissolve powder in 240 mL water 255 g 025 2024 ketoconazole (NIZORAL) 2 % shampooIndicatio ns:Tinea versicolor Apply topically daily for 14 days. 120 mL 025 2024 metFORMIN (GLUCOPHAGE) 500 MG tabletIndication s:PCOS (polycystic ovarian syndrome) Take 1 tablet (500 mg total) by mouth 2 (two) times daily with meals. 180 tablet 3 025 2024 Discontinued(R eorder) buPROPion XL (WELLBUTRIN XL) 300 MG 24 hr tabletIndication s:Moderate episode of recurrent major depressive disorder (CMS/HCC) Take 1 tablet by mouth once daily 90 tablet 025 2024 Discontinued(O ther- Please enter comment in Notes field) Active Problems Problem Noted Date Diagnosed Date Cyst of right ovary 10/29/2024 Overview (10/29/2024): 10/29/2024: She reports she has ovarian cyst on right ovary and had U/S of right ovary in September which showed ovarian cyst 1 cm and repeat ultrasound today which showed ovarian cyst is now 5cm at [facility]. She is asymptomatic at this time. She reports ovarian cysts are always problematic on right side. She reports she has had a cyst on the right side drained previously. She is asking if she could have hysterectomy if that would improve. Assessment & Plan (10/29/2024 6:07 PM CDT): Counseled patient that hysterectomy is not recommended for her as she would likely go through menopause at an earlier age than anticipated. Recommend and as she is asymptomatic, that she return for ultrasound as requested per [facility] next month and in the meantime we will increase metformin which will hopefully help improve her metabolic health in addition to her increasing physical activity and making dietary adjustments. She is counseled on red flag symptoms that would warrant her presenting to ED such as acute onset right lower quadrant pain which could be indicative of of ovarian torsion. Residual hemorrhoidal skin tags 10/10/2024 Assessment & Plan (10/10/2024 1:05 PM GROUT WORKER): On exam, patient has residual hemorrhoidal skin tag with small ulceration. Patient denies tenderness to palpation. Recommend that patient can continue using barrier ointment such as Vaseline, Aquaphor or can continue for another additional few days using her cdgg-psw-ojtzpxq hemorrhoidal cream as glycerin and petroleum. This should improve. Addressed patient's constipation. See under constipation. Constipation, unspecified constipation type 09/15 Overview (10/29/2024): 10/10/2024: Patient reports she generally has bowel movement every 3 or so days. She reports she does have to strain at times. She reports she has been attempting to use Metamucil and cgos-oot-ixevhxo stool softeners/laxatives to help increase frequency of bowel movements. She denies blood in her stool. 10/29/2024: Taking Miralax once daily. She reports she is having bowel movement every one to two days. Assessment & Plan (10/29/2024 6:05 PM CDT): Counseled that she can supplement with Metamucil/psyllium husk as can be helpful as insoluble fiber and soluble fiber. Increase as tolerated. Also instructed to increase intake of whole grains and exams. Take MiraLAX as needed. Assessment & Plan (10/10/2024 1:07 PM GROUT WORKER): Recommended patient to start taking MiraLAX 1 capful twice daily for the next week or so. Once bowel movements are more regular, can decrease down to 1 capful daily. Counseled patient extensively regarding increasing dietary fiber and the importance. I recommend patient have a goal of 30 g of dietary fiber daily. She can increase her current Metamucil dose if she would like. She is counseled to also drink more water. Tinea versicolor 10/10/2024 Overview (10/10/2024): 10/10/2024: She reports she has received ketoconazole cream and shampoo in the past and has currently been using cream on these areas. She reports she follows with dermatology. Assessment & Plan (10/10/2024 1:17 PM GROUT WORKER): Agree with previous diagnosis of tinea versicolor by dermatology at this time. Recommended patient use ketoconazole 2% shampoo daily for the next 2 weeks and then can decrease to twice weekly. She is instructed to leave shampoo on areas of tinea versicolor for 5 to 10 minutes while she is in the shower. We will continue to follow. Need for prophylactic vaccination against hepati tis B virus 10/10/2024 Overview (10/10/2024): 10/10/2024: Patient had hepatitis B surface antibody levels checked which were low. Only 2 infant doses of hepatitis B vaccine are available to be seen in patient's vaccine history that we have documented. Assessment & Plan (10/10/2024 1:10 PM GROUT WORKER): Recommend patient receive hepatitis B immunization series. She was given CDC VIS and endorsed no questions. She will receive first dose of hepatitis B vaccine series today. Chiari malformation type I ([facility]/HCC) Overview (09/05/2024): 09/05/2024: Patient reports she was told that her cerebellar tonsils are enlarged Assessment & Plan (09/05/2024 8:01 PM GROUT WORKER): Per chart review, patient had MRI brain 12/06/2023 and followed up with neurology and Chiari malformation type I was discussed with patient. Neurology is monitoring. Skin lesion of breast 08/23/2024 Overview (09/05/2024): 08/23/2024: She is complaining of a skin lesion on her right breast that she reports healed however continues to remain discolored and a bump. She reports that it initially drained however stopped draining. She reports she noticed a new lesion close by on her right breast that started out looking like a pimple that she squeezed and produce drainage and is now crusted over. She reports she has been using triple antibiotic ointment after showering daily however no other treatment at this time. 09/05/2024: She reports lesions are improving and she is using mupirocin ointment. She reports that she has had some irritation of her skin due to adhesive bandages. Assessment & Plan (09/05/2024 7:59 PM GROUT WORKER): Skin was examined with deborah Swan present. Patient does have some irritation from bandages however initial lesions are improving and hyperpigmentation is also improving. She is counseled that this is all expected to resolve however may take several weeks. She is counseled to not use adhesive bandages and can use soft gauze or other barrier to protect her brassiere from appointment without having something attached to her skin that may pull on the sensitive skin on her breast. Assessment & Plan (08/23/2024 2:32 PM GROUT WORKER): Suspect impetigo as lesion has honey colored crust. Will treat with medical mupirocin ointment 3 times daily for at least 5 days. She can use gauze or other barrier to protect her clothing/bra from getting ointment on it. Hyperpigmentation of skin, postinflammatory 08/14 Overview (08/23/2024): 08/23/2024: She reports that she is continued redness/brown discoloration of healed lesion on her right breast. Assessment & Plan (09/05/2024 7:59 PM GROUT WORKER): Improving. See under skin lesion of breast. Assessment & Plan (08/23/2024 2:32 PM GROUT WORKER): Postinflammatory hyperpigmentation is present. Patient is counseled on ways to decrease postinflammatory hyperpigmentation such as using topical adapalene/Differin gel daily to help increase cellular turnover. Elevated serum creatinine 08/02/2024 Overview (09/05/2024): 08/23/2024: Serum creatinine increased at 1.05 with decreased GFR of 74 on comprehensive metabolic panel 08/02/2024. Assessment & Plan (09/05/2024 7:56 PM GROUT WORKER): Repeat BMP has been ordered however patient has not had drawn. Will return for tomorrow morning for lab draw. Daily valacyclovir has been decreased to 500 mg daily. Patient asked to hold NSAIDs until we confirm kidney function. Assessment & Plan (08/23/2024 2:36 PM GROUT WORKER): Discussed with patient that this is likely acute kidney injury at least in comparison to labs from March 2021. In regards to patient's current medications, valacyclovir may be contributing to decreased kidney function. She could have underlying chronic kidney disease however we will not be able to diagnose for a few months. She is counseled to increase oral water hydration. She is counseled at length on several reasons why serum creatinine may be elevated. We agreed to decrease daily valacyclovir prophylaxis and will recheck kidney function in 2 weeks. Patient is counseled to hydrate with water prior to lab draw. Generalized anxiety disorder 07/26/2024 Pain in thoracic spine 07/26/2024 Overview (07/26/2024): Patient reports she sees chiropractor regularly at [facility] Acne vulgaris 07/26/2024 Overview (07/26/2024): She reports she uses neomycin wipes for acne. Moderate episode of recurrent major depressive d isorder 07/26/2024 Overview (08/23/2024): Initial visit 07/26/2024: She reports she has had issues since age of middle school. She reports she has been on Wellbutrin since earlier this year. She was on 150 mg once daily for several months and then increased her dose to 300 mg approximately 2 weeks ago around . She reports she has been on multiple medications in the past including Klonopin. She reports she is doing well on 300 mg daily. 07/26/2024 11:59 AM PHQ-9 Score Patient Health Questionnaire-9 Score 17 08/23/2024: 07/26/2024 11:59 AM 08/23/2024 2:42 PM PHQ-9 Score Patient Health Questionnaire-9 Score 17 1 Assessment & Plan (08/23/2024 2:43 PM GROUT WORKER): Continue Wellbutrin 300 mg daily. Assessment & Plan (07/26/2024 12:16 PM GROUT WORKER): Continue Wellbutrin 300 mg once daily. Sent in new prescription as patient was taking 2, 150 mg tablets daily. Endometriosis 07/26/2024 Overview (07/26/2024): She reports this was diagnosed with laparoscopy with Dr. Pankaj Roman 02/09/2024. PCOS (polycystic ovarian syndrome) 07/26/2024 Overview (10/29/2024): Currently on metformin 500 mg twice daily. She denies any side effects or adverse effects, Assessment & Plan (10/29/2024 6:05 PM CDT): Plan to increase metformin to 1000 mg twice daily. Patient can incrementally increase by increasing to 1000 mg once daily in morning and 500 mg daily in evening at first. Anticipate this helping improve metabolic health in addition to increasing physical activity and adjusting diet. Assessment & Plan (07/26/2024 12:36 PM GROUT WORKER): Counseled patient that PCOS is an independent risk factor for developing diabetes. We discussed and agreed upon increasing metformin to 500 mg oral twice daily as patient is not having symptoms with current dose of metformin and this may help with additional weight loss. Migraine without aura and wi thout status migrainosus, not intractable 07/26/2024 Overview (09/05/2024): 07/26/2024: Patient reports she takes rizatriptan as needed for migraine headaches and magnesium oxide daily. She reports she follows with neurology and has had MRI in the past. She reports her last migraine headache was last night overnight. 09/05/2024: She reports she has had 3-4 recent headaches on the right side that are about the same as her regular migraines. She reports when things move too fast across her visual field, she feels like she has to close her eyes. She also reports that she feels like something is behind her eyes such as a contact . She reports she has had her vision checked sometime in the last year . She reports she took a rizatriptan last Monday however has not been taking Advil which she normally takes due to kidney function. She reports she been trying to hydrate with water and electrolyte packets such as ones from [employer] and Liquid IV. Assessment & Plan (09/05/2024 8:05 PM GROUT WORKER): As migraine headaches are very similar to her previous headache, will continue current treatment and defer to neurology especially in the setting of patient's Chiari malformation. Seasonal allergies 07/26/2024 Overview (07/26/2024): Reports she takes cetirizine daily as needed. Class 1 obesity with serious comorbidity and body mass index (BMI) of 32.0 to 32.9 in adult, unspecified obesity type 07/26/2024 Overview (10/10/2024): 07/26/2024: She reports she has previously been on Ozempic when she was noted to be prediabetic. She reports she was on the medication few years ago up until the spring. She reports overall her depression symptoms were improved when she weighed about 145 pounds. 08/23/2024: She reports she is taking wellbutrin 300mg daily with no concerns. 09/05/2024: She reports she would like to discuss additional weight loss medication. 10/10/2024: She reports Zepbound was denied by insurance. Assessment & Plan (10/10/2024 1:12 PM GROUT WORKER): Discussed that her employer could attempt to provide her a medical exemption for prescription. Discussed dietary and exercise recommendations to help patient lose weight. Also discussed that we could increase metformin to 1000 mg twice daily. Assessment & Plan (09/27/2024 5:56 PM GROUT WORKER): See under obstructive sleep apnea Assessment & Plan (09/05/2024 8:06 PM GROUT WORKER): Is very limited on time, we will have to postpone this to next visit however discussed with patient that we could potentially try tirzepatide in the form Zepbound is a did get approved for obstructive sleep apnea. Will plan to discuss adding something like this at her next visit. Assessment & Plan (08/23/2024 2:20 PM GROUT WORKER): Patient's weight has decreased by a few pounds since last visit. Continue wellbutrin 300mg oral daily. Assessment & Plan (07/26/2024 12:35 PM GROUT WORKER): Patient to continue taking Wellbutrin 300 mg once daily as this can also help with weight loss in addition to helping with her depression/anxiety. History of prediabetes 07/26/2024 History of PCR DNA positive for HSV2 07/23/2024 Obstructive sleep apnea 07/09/2024 Overview (09/27/2024): Initial visit 07/26/2024: Patient reports she had sleep study within the past few months and was diagnosed with mild obstructive sleep apnea. She reports her insurance would not cover in person CPAP titration study. 08/23/2024: She is asking about Zepbound since she was diagnosed with sleep apnea. She reports she started CPAP recently and reports she has worn it a few times. 09/05/2024: She reports she thinks her CPAP machine has a leak or something. 09/27/2024: She reports she was prescribed CPAP by Dr. Brennon Ford at [facility] in [place], [place]. She reports she is planning to return CPAP as she is having a difficult time getting a hold of her providers office. She reports she has had a difficult time with her CPAP device including a difficult time wearing device as instructed. Assessment & Plan (09/27/2024 6:02 PM GROUT WORKER): Offered to send in referral to a new provider if patient is interested. I do recommend treatment regarding her obstructive sleep apnea. Discussed that the FDA has approved Zepbound to help with weight loss in the setting of obesity and moderate to severe sleep apnea. Patient is interested in trying this medication. She reports in the past she has tried Ozempic when her insurance was covering medication and was able to lose weight. Discussed with patient that we will start with 2.5 mg subcutaneous once weekly. She is counseled on potential side effects. She is instructed that if this medication is approved and she is to start, I recommend her participate in resistance training exercises/weight training exercises to help maintain adequate bone/muscle mass and strength. He is counseled as well that the long-term effects of these medications are unknown at this time as there are newer. She is also counseled that this medication may decrease effectiveness of Provera medication in terms of contraception however she reports she is not taking medication for contraception and is not concerned. Assessment & Plan (09/05/2024 8:06 PM GROUT WORKER): She is recommended to contact medical equipment provider of CPAP regarding CPAP issues. Assessment & Plan (08/23/2024 2:25 PM GROUT WORKER): Zepbound is FDA indicated for moderate to severe BENITO with obesity. Unsure severity of BENITO. Need records which we haven't received yet. Encouraged patient to reach out to medical claims analyst company regarding her CPAP as they may be able to make adjustments to her mask or device to make it more tolerable. She is counseled that there are also other options available for sleep apnea therapy. Assessment & Plan (07/26/2024 12:23 PM GROUT WORKER): Requesting records from sleep doctor Dysmenorrhea 10/04/2022 Overview (07/26/2024): She reports this is improved since laparoscopy with Dr. Pankaj Roman 02/09/2024. Varicose veins of right lower extremity with sissy n 06/21/2022 Genital herpes simplex 01/20/2021 Overview (08/23/2024): Initial visit 07/26/2024: She denies active lesions. She reports that takes valacyclovir 1 g daily. Assessment & Plan (08/23/2024 2:12 PM GROUT WORKER): Discussed with patient that I recommend decreasing daily prophylaxis dose to Valacyclovir 500mg oral once daily from 1000mg oral once daily especially in the setting of her increased creatinine/decreased GFR. She is agreeable. She can cut tablets in half as she just picked up new prescription. Resolved Problems Problem Noted Date Diagnosed Date Resolved Date Anus problems 09/27/2024 10/29/2024 Overview (09/27/2024): 09/27/2024: She is also complaining of an anus complaint. 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 She reports she has been using onck-qdc-xodlbdb hydrocortisone cream. Assessment & Plan (09/27/2024 5:59 PM GROUT WORKER): Discussed with patient that I do not want to address this through virtual appointment as exam likely needs to be conducted in person. Patient reports she will continue iapk-oiq-ddrwoze hydrocortisone cream as needed. Follow-up appointment scheduled for next week. Influenza A 09/18/2024 10/10/2024 Overview (09/27/2024): 09/27/2024: Patient tested positive for influenza A 09/18/2024. She was outside of the realm of time for Tamiflu treatment. She reports over the last week she continues to take Mucinex severe cold and flu as she reports it is helping with her symptoms. She reports she still has a cough however it is not as bad and also endorses nasal congestion for which she reports she is taking Flonase and doing nasal saline rinses. She reports she is feeling better overall. Denies fever, chills. Assessment & Plan (09/27/2024 5:53 PM GROUT WORKER): Patient is improving. Patient counseled that she may have coughed up to 4 to 6 weeks after having viral illness such as influenza. She is counseled to continue using Flonase nasal spray and nasal saline rinses to help improve congestion. She can continue rqoe-hvj-wyusjdr Mucinex if she feels as if it is helping improve some of her symptoms. If she acutely worsens and or fails to improve, is instructed to return for reevaluation. Unprotected sexual intercourse 08/23/2024 09/05/2024 Overview (08/23/2024): 08/23/2024: She reports she would like STI testing. She reports having unprotected vaginal sexual intercourse with a new partner two weeks ago and started experiencing dysuria within a few days as well as foul smelling urine. She reports she started OTC Azo which she reports helped improve burning with urination. Otherwise, she denies change in vaginal discharge, ulcers or abnormal bleeding. Assessment & Plan (08/23/2024 2:11 PM GROUT WORKER): Urine testing ordered for gonorrhea,chlamydia, and trichomonas. Counseled patient that routine testing for HPV is not performed and it may be too early to test for syphillis and HIV. Foul smelling urine 08/23/2024 09/05/19 Overview (09/05/2024): 08/23/2024: She reports she would like STI testing. She reports having unprotected vaginal sexual intercourse with a new partner two weeks ago and started experiencing dysuria within a few days as well as foul smelling urine. She reports she started OTC Azo 08/16/2024 which she reports helped improve burning with urination. Otherwise, she denies change in vaginal discharge, ulcers or abnormal bleeding. She denies fever. 09/05/2024: She reports this has resolved. Assessment & Plan (08/23/2024 2:16 PM GROUT WORKER): UA and culture ordered as well as STI testing. Palpitations 07/26/2024 07/26/2024 GERD (gastroesophageal reflux disease) 07/26/2024 07/26/2024 Neck pain 07/26/2024 07/26/2024 Dysuria 07/26/2024 07/26/2024 Candidiasis of vagina 07/26/20242023 Bacterial food poisoning 07/26/2024 Encounters Date Type Department Care Team Description 11/14/2024 Medication Management [facility] [address] [address] [address] [place] [address] Carol Campos DO 11/14/2024 Telephone [facility] [address] [place] [address] Carol Campos DO Medication 10/29/2024 4:00 PM CDT Office Visit [facility] [address] [place] [address] Carol Campos, Constipation (Pt states it has been better. /Pt states she is having normal bowel movements. /Pt states she is using miralax once daily /) 10/29/2024 Travel 10/10/2024 11:20 AM GROUT WORKER Office Visit [facility] [address] [place] [address] Carol Campos, DO Hemorrhoids (2 weeks./Tried OTC cream having little relief. /); Rash (On neck); Follow Up (Labs) 10/10/2024 Travel 10/02/2024 MyChart Message [facility] [address] [place] [address] [facility] [address] [place] [address] Carol Campos, DO Appt 09/30/2024 Telephone [place] [address] [address] [address] [place] [address] Carol Campos, DO Medication Problem 09/27/2024 10:40 AM GROUT WORKER [facility] [place] [address] [address] [place] [address] Carol Campos, DO Follow Up (Flu follow up) 09/27/2024 Telephone [place] [address] [place] [address] Carol Campos, DO Medication 09/27/2024 Travel 09/23/2024 Scan [facility] Scanned, [facility] Lab (SCAN) 09/20/2024 Telephone [address] [place] [address] [address] [place] [address] Carol Campos, DO Called To Cancel Office Appt. 09/19/2024 Scan [facility] Scanned, Doc [facility] 09/18/2024 11:40 AM GROUT WORKER Office Visit [place] [address] [place] [address] Rain Treadwell, ARVIN Cough; Congestion; Body Aches 09/18/2024 - 09/18/2024 11:59 PM GROUT WORKER [facility] [address] [place] [address] Rain Treadwell, ARVIN Discharge Disposition: Home or Self Care (Routine Discharge) 09/18/2024 Travel 09/16/2024 Telephone [facility] [address] [place] [address] Carol Campos, DO Medication 09/06/2024 8:54 PM GROUT WORKER - 09/06/2024 11:59 PM GROUT WORKER Hospital Encounter [facility] [address] [place] [address] Carol Campos, DO Discharge Disposition: Home or Self Care (Routine Discharge) 09/06/2024 8:30 AM GROUT WORKER Allied Health/Nurse Visit [facility] [address] [place] [address] Carol Campos, DO Allied Health Visit (BMP, HEP B titer and tdap) 09/06/2024 - 09/06/2024 8:53 PM GROUT WORKER Hospital Encounter [facility] [address] [place] [address] Carol Campos, DO Discharge Disposition: Home or Self Care (Routine Discharge) 09/05/2024 3:00 PM GROUT WORKER Office Visit [facility] [address] [facility] [address] [place] [address] Carol Campos, DO Follow Up (2 week follow up kidney and lesion.) 09/05/2024 Travel 08/30/2024 Telephone [facility] [address] [facility] [address] [place] [address] Carol Campos, DO Medication Information 08/27/2024 [facility]phone [facility] [address] [place] [address] Carol Campos, DO Medication 08/27/2024 [facility] [address] [place] [address] Carol Campos, DO Medication Information 08/26/2024 MyChart Message Enc [facility] [address] [place] [address] Carol Campos, RX 08/26/2024 Orders Only [facility] [place] [address] [facility] [address] [place] [address] Carol Campos, 08/26/2024 Telephone [facility] [place] [address] [facility] [address] [place] [address] Carol Campos, Medication 08/23/2024 10:20 AM GROUT WORKER Office Visit [facility] [place] [address] [facility] [address] [place] [address] Carol Campos, Follow Up (Labs and STD test ); Weight Problem; Depression 08/23/2024 - 08/23/2024 11:59 PM GROUT WORKER Hospital Encounter [facility] [address] [facility] [address] [address] Carol Campos, DO Discharge Disposition: Home or Self Care (Routine Discharge) 08/23/2024 Travel from Last 3 Months Immunizations Name Administration Dates Next Due Dtp 1995 Dtp/Hib (Tetramune) 05/03/1996 Hepatitis B (Recombivax Hb 10 Mcg) 10/10/2024 Hepatitis B Pediatric 05/03/1996,1995 Hib (Generic) 1995 Influenza Adult (Generic) 05/29/2024,06/13/2022 Opv 05/03/1996,1995 Tdap (Adacel) 09/06/2024 Tdap (Generic) 06/28/2022 Family History * Patient is adopted Medical History Relation Comments No Known Problems Father No Known Problems Maternal Grandfather Skin cancer Maternal Grandmother Depression Mother Diabetes Mother Schizophrenia Mother No Known Problems Paternal Grandfather No Known Problems Paternal Grandmother Relation Status Comments Father Alive Maternal Grandfather Maternal Grandmother Mother Alive Paternal Grandfather Paternal Grandmother Social History Tobacco Use Types Packs/Day Years Used Date Smoking Tobacco: Never Smokeless Tobacco: Never Tobacco Cessation:Counseling Given: No Alcohol Use Standard Drinks/Week Comments Yes 1 (1 standard drink = 0.6 oz pur e alcohol) rare AUDIT-C Answer Date Recorded Q1: How often do you have a drink containing alc ohol? Never 11/25/2020 Average Number of Drinks Not on file 021 Frequency of Binge Drinking Not on file 11/12 PHQ-2 Answer Date Recorded Patient Health Questionnaire-2 Score 0 08/23/2024 Comments No Sex and Gender Information Value Date Recorded Sex Assigned at Female 09/27/2024 10:50 AM GROUT WORKER Legal Sex Female 1:41 PM CDT Gender Identity Female 09/27/2024 10:50 AM GROUT WORKER Sexual Orientation Straight 08/22/2024 11 :52 AM GROUT WORKER Last Filed Vital Signs Vital Sign Reading Time Taken Comments Blood Pressure 108/74 10/29/2024 4:02 PM CDT Pulse 69 10/29/2024 4:02 PM CDT Temperature 36.7 C (98.1 F) 10/29/2024 4:02 PM CDT Respiratory Rate 16 10/29/2024 4:02 PM CDT Oxygen Saturation 99% 10/29/2024 4:02 PM CDT Inhaled Oxygen Concentration - - Weight 90.3 kg (199 lb) 10/29/2024 4:02 PM CDT Height 162.6 cm (5' 4 ) 10/29/2024 4:02 PM CDT Body Mass Index 34.16 10/29/2024 4:02 PM CDT Plan of Treatment Upcoming Encounters Date Type Department Care Team (Late st Contact Info) Description 11/29/2024 3:00 PM CDT Office Visit [facility] [place] [address] [place] [address] Carol Campos, DO [address] [place] [address] Health Maintenance Due Date Last Done Comments Annual Physical 1998 Hepatitis B Vaccines (3 of 3 - 3-dose series) 12/05/2024 10/10/2024, 05/03/1996, 1995 Cervical Cancer Screening Pap Smear (Age 21 to 29) Every 3 Years 05/20/2027 05/20/2024, 05/11/2023 Cervical Cancer Screening 05/20/2027 DTaP, Tdap and Td Vaccines (3 - Td or Tdap) 09/06/2034 09/06/2024, 06/28/2022, 05/03/1996, Additional history exists COVID-19 Vaccine Completed 05/24/2024, , 12/07/2020 PHQ-2 (Physician Quinault) Completed 08/23/2024 Hepatitis C Completed 09/06/2024, 08/02/2024 HPV Vaccines Aged Out No longer eligi ble based on patient's age to complete this topic Meningococcal B Vaccine Aged Out No l onger eligible based on patient's age to complete this topic Meningococcal Vaccine Aged Out No renaldo ethel eligible based on patient's age to complete this topic Pneumococcal Vaccine: Pediatrics (0 to 5 Years) and At-Risk Patients (6 to 64 Years) Aged Out No longer eligible based on patient's age to complete this topic RSV Immunizations Under 20 Months Aged Out No longer eligible based on patient's age to complete this topic Procedures Procedure Name Priority Date/Time Associated Diagnosis Comments HEMOGLOBIN, GLYCOSYLATED Routine 10/10/2024 Prediabetes OUTSIDE LAB (SCAN ORDER) 09/23/2024 URINE BACTERIA CULTURE Routine 09/18/2024 3:14 PM GROUT WORKER Dysuria URINALYSIS, AUTO, COMPLETE Routine 09/18/2024 3:14 PM GROUT WORKER Dysuria CORONAVIRUS (COVID-19) INFLUENZA A & B ANTIGEN IA PANEL Routine 09/18/2024 Influenza A HEPATITIS B SURFACE ANTIBODY Routine 09/06/2024 9:24 AM GROUT WORKER BASIC METABOLIC PANEL Routine 09/06/2024 9:24 AM GROUT WORKER Elevated serum creatinine HEPATITIS B SURFACE AG, EIA Routine 09/06/2024 9:24 AM GROUT WORKER Need for hepatitis B screening test HEPATITIS C ANTIBODY Routine 09/06/2024 9:24 AM GROUT WORKER Need for hepatitis B screening test COLLECTION VENOUS BLOOD VENIPUNCTURE Routine 09/06/2024 8:53 AM GROUT WORKER Elevated serum creatinine CHLAM/GC/TRICHOMONAS PROFILE Routine 08/23/2024 3:16 PM GROUT WORKER Unprotected sexual intercourse URINALYSIS, AUTO, COMPLETE Routine 08/23/2024 3:16 PM GROUT WORKER Foul smelling urine OUTSIDE CYTOPATH CERV/VAG INTERPRET (PAP) (SCAN ORDER) 05/20/2024 from Last 3 Months or Most Recently Relevant to Health Maintenance Results * A1C (BACK OFFICE) (10/10/2024) HGB A1C 5.3 % -[address], [place] 10/10/2024 Carol Campos DO LABORATORY Final Result Performing Organization Address City/[facility]/ZIP Co de Phone Number [id number], [place] [address] [facility] [address] [place] [address], * OUTSIDE LAB (SCAN ORDER) (09/23/2024) 09/23/2024 us Doc [facility] Scanned SCANNING Final Resu lt * (ABNORMAL) URINALYSIS (09/18/2024 3:14 PM GROUT WORKER) Only the most recent of2 resultswithin the time period is included. COLOR (U) ORANGE 09/18/2024 7:42 PM GROUT WORKER [facility] [place] Comment: INTERPRET DIPSTICK RESULTS WITH CAUTION. RESULTS MAY BE INACCURATE DUE TO COLOR OF URINE. TRANSPARENCY CLOUDY(A) CLEAR 09/18/2024 7:42 PM GROUT WORKER [facility] [place] SPECIFIC GRAVITY (U) 1.010 1.003 - 1.040 09/18/2024 7:42 PM GROUT WORKER [facility] U PH 7.0 5.0 - 9.0 09/18/2024 7:42 PM [facility] PROTEIN RANDOM (U) 2+(A) NEGATIVE 09/18/2024 7:42 PM [facility] Comment: INTERPRET DIPSTICK RESULTS WITH CAUTION. RESULTS MAY BE INACCURATE DUE TO COLOR OF URINE. GLUCOSE (U) 1+(A) NEGATIVE 09/18/2024 7:42 PM [facility] Comment: INTERPRET DIPSTICK RESULTS WITH CAUTION. RESULTS MAY BE INACCURATE DUE TO COLOR OF URINE. KETONES MG/DL (U) TRACE(A) NEGATIVE 09/18/2024 7:42 PM [facility] Comment: INTERPRET DIPSTICK RESULTS WITH CAUTION. RESULTS MAY BE INACCURATE DUE TO COLOR OF URINE. BILIRUBIN (U) 1+(A) NEGATIVE 09/18/2024 7:42 PM [facility] Comment: INTERPRET DIPSTICK RESULTS WITH CAUTION. RESULTS MAY BE INACCURATE DUE TO COLOR OF URINE. BLOOD (U) TRACE(A) NEGATIVE 09/18/2024 7:42 PM [facility] Comment: INTERPRET DIPSTICK RESULTS WITH CAUTION. RESULTS MAY BE INACCURATE DUE TO COLOR OF URINE. UROBILINOGEN >8.0(H) 0.0 - 2.0 EU/DL 09/18/2024 7:42 PM [facility] Comment: INTERPRET DIPSTICK RESULTS WITH CAUTION. RESULTS MAY BE INACCURATE DUE TO COLOR OF URINE. NITRITES POSITIVE(A ) NEGATIVE 09/18/2024 7:42 PM [facility] Comment: INTERPRET DIPSTICK RESULTS WITH CAUTION. RESULTS MAY BE INACCURATE DUE TO COLOR OF URINE. LEUKOCYTES (U) 3+(A) NEGATIVE 09/18/2024 7:42 PM [facility] Comment: INTERPRET DIPSTICK RESULTS WITH CAUTION. RESULTS MAY BE INACCURATE DUE TO COLOR OF URINE. RBC/HPF 4-9(A) 0 - 3 /HPF 09/18/2024 7:42 PM [facility] WBC/HPF 50-75(A) 0 - 3 /HPF 09/18/2024 7:42 PM [facility] EPI/HPF 20-30 /HPF 09/18/2024 7:42 PM GROUT WORKER [facility] BACTERIA (U) 1+(A) NONE SEEN 09/18/2024 7:42 PM GROUT WORKER [facility] URINE SPECIMEN OBTAINED BY CLEAN CATCH PROCEDURE / Unknown 09/18/2024 3:14 PM GROUT WORKER Rain Treadwell NP URINE ORDERABLES Final Resu lt [facility] [address] [place] [address], * URINE BACTERIA CULTURE (09/18/2024 3:14 PM GROUT WORKER) SPEC DESCRIPTION URINE CLEAN CATCH 09/18/2024 3:14 PM GROUT WORKER [facility] SPECIAL REQUESTS NO SPECIAL REQUEST 09/18/2024 3:14 PM GROUT WORKER [facility] CULTURE RESULT EQUAL OR >100,000 CFU/mL ESCHERICHIA COLI 09/21/2024 9:21 AM GROUT WORKER [facility] URINE SPECIMEN OBTAINED BY CLEAN CATCH PROCEDURE / Unknown 09/18/2024 3:14 PM GROUT WORKER 09/18/2024 9:09 PM GROUT WORKER Narrative Organism Antibiotic Method Susceptibility Escherichia coli AMPICILLIN IRMA (VITEK) Resistant Escherichia coli AMOXICILLIN/CLAVULANIC A IRMA (VITEK) Sensitive Escherichia coli AZTREONAM IRMA (VITEK) Sensitive Escherichia coli CEFEPIME IRMA (VITEK) Sensitive Escherichia coli CEFTRIAXONE IRMA (VITEK) Sensitive Escherichia coli CEFAZOLIN IRMA (VITEK) Sensitive Escherichia coli CIPROFLOXACIN IRMA (VITEK) Sensitive Escherichia coli ESBL IRMA (VITEK) NEG: Sensitive Escherichia coli ERTAPENEM IRMA (VITEK) Sensitive Escherichia coli NITROFURANTOIN IRMA (VITEK) Sensitive Escherichia coli GENTAMICIN IRMA (VITEK) Sensitive Escherichia coli IMIPENEM IRMA (VITEK) Sensitive Escherichia coli LEVOFLOXACIN IRMA (VITEK) Sensitive Escherichia coli MEROPENEM IRMA (VITEK) Sensitive Escherichia coli PIPRACIL/TAZO IRMA (VITEK) Sensitive Escherichia coli TRIMETH-SULFAMETH. IRMA (VITEK) Resistant Escherichia coli TETRACYCLINE IRMA (VITEK) Sensitive Rain Treadwell NP MICROBIOLOGY - GENERAL [facility] IFEANYI Final Result [facility] [address] [place] [address], [place] [phone] * (ABNORMAL) CORONAVIRUS (COVID-19) INFLUENZA A & B ANTIGEN IA PANEL (09/18/2024) Pathologist [facility] CORONAVIRUS ANTIGEN IA NEGATIVE NEGATIVE MG-[address], [place] INFLUENZA A POSITIVE(A) NEGATIVE MG-[address] [place] INFLUENZA B NEGATIVE NEGATIVE MG[address] [place] Internal Control: VALID VALID [address] [place] NASAL STRUCTURE / Unknown 09/18/2024 Rain Treadwell NP [facility] IF[facility]ANY[facility] Final Result Performing Organization Address City/[facility]/ZIP Co de Phone Number [id number], [place] [address] [place] [address], [place] [phone] * (ABNORMAL) BASIC METABOLIC PANEL (09/06/2024 9:24 AM GROUT WORKER) Pathologist [facility] SODIUM S/P/B 141 136 - 145 MMOL/L 09/06/2024 3:04 PM GROUT WORKER [facility] POTASSIUM S/P/B 4.2 3.5 - 5.1 MMOL/L 09/06/2024 3:04 PM GROUT WORKER [facility] CHLORIDE S/P/B 103 98 - 107 MMOL/L 09/06/2024 3:04 PM GROUT WORKER [facility] CO2 28.1 21 - 32 MMOL/L 09/06/2024 3:04 PM GROUT WORKER [facility] GLUCOSE 128(H) 70 - 99 MG/DL 09/06/2024 4:12 PM GROUT WORKER [facility] BUN 9 7 - 18 MG/DL 09/06/2024 3:04 PM GROUT WORKER [facility] CREATININE S/P/B 0.87 0.55 - 1.02 MG/DL 09/06/2024 3:04 PM GROUT WORKER [facility] [place] CALCIUM S/P/B 8.9 8.4 - 10.5 MG/DL 09/06/2024 3:04 PM GROUT WORKER [facility] [place] ANION GAP 9.9 5 - 15 MMOL/L 09/06/2024 3:04 PM GROUT WORKER [facility] [place] Comment:REFERENCE RANGE NOT ESTABLISHED OSMOLALITY (CALC) 292 MOSM/KG 025 4:12 PM GROUT WORKER [facility] [place] Comment:REFERENCE RANGE NOT ESTABLISHED GFR ESTIMATE >90 >90 ML/MIN/1. 73 M2 09/06/2024 3:04 PM GROUT WORKER [facility], [place] GFR NOTES GFR REFERENCE S: 09/06/2024 3:04 PM GROUT WORKER [facility] [place] Comment: THE ESTIMATED GFR IS CALCULATED USING [...] ml/min/1.73 m2 G5,KIDNEY FAILURE: <15 ml/min/1.73 m2 09/06/2024 9:24 AM GROUT WORKER us Carol Campos DO LABORATORY Final Result [facility] [address] [place] [address], [place] [phone] * HEPATITIS C ANTIBODY ([facility] ONLY) (09/06/2024 9:24 AM GROUT WORKER) HEPATITIS C AB NON-REACTI VE NON-REACT ROBYN 09/06/2024 7:38 PM GROUT WORKER [facility] Comment: ANTIBODIES TO HCV NOT DETECTED. DOES NOT EXCLUDE THE POSSIBILITY OF EXPOSURE TO HCV. 09/06/2024 9:24 AM GROUT WORKER us Carol Campos DO LABORATORY Final Result Performing Organization Address City/[facility]/ZIP Co de Phone Number [facility] [address] [place] [address], [place] [phone] * HEPATITIS B SURFACE AG, EIA (09/06/2024 9:24 AM GROUT WORKER) HEPATITIS B SURFACE AG NON-REACTI VE NON-REACTI VE 09/06/2024 7:38 PM GROUT WORKER [facility] Comment:HBsAg NOT DETECTED. 09/06/2024 9:24 AM GROUT WORKER us Carol Campos DO LABORATORY Final Result Performing Organization Address [facility] Co de Phone Number [facility] [address] [place] [address], [place] [phone] * (ABNORMAL) HEPATITIS B SURFACE ANTIBODY (09/06/2024 9:24 AM GROUT WORKER) HEP B SURFACE AB 9.9(L) >9.9 MIU/ML 09/06/2024 9:58 PM GROUT WORKER [facility] Comment:INDIVIDUAL IS CONSID ERED NOT IMMUNE TO HBV INFECTION. 09/06/2024 9:24 AM GROUT WORKER us Carol Campos DO LABORATORY Final Result Performing Organization Address City/[facility] Co de Phone Number [facility] [address] [place] [address], [place] [phone] * CHLAM/GC/TRICHOMONAS PROFILE (08/23/2024 3:16 PM GROUT WORKER) SPEC DESCRIPTION URINE 08/23/19 25 3:17 PM GROUT WORKER [facility] CHLAMYDIA RNA TMA NEGATIVE NEGATIVE 025 2:18 PM GROUT WORKER [facility] Comment:PERFORMED BY NUCLEIC ACID AMPLIFICATION N.GONORRHOEAE RNA TMA NEGATIVE NEGATIVE 08/26/2024 2:18 PM GROUT WORKER [facility] Comment:PERFORMED BY NUCLEIC ACID AMPLIFICATION TRICHOMONAS NEGATIVE NEGATIVE 08/26/2024 2:18 PM GROUT WORKER [facility] Comment:PERFORMED BY NUCLEIC ACID AMPLIFICATION URINE SPECIMEN / Unknown 08/23/2024 3:16 PM GROUT WORKER Carol Campos DO MICROBIOLOGY - GENERAL ORDERA BLES Final Result [facility] [address] [place] [address], * PAP SMEAR (SCAN ORDER) (05/20/2024) 05/20/2024 Doc Med Group Scanned SCANNING Final Resu lt from Last 3 Months or Most Recently Relevant to Health Maintenance Insurance [facility] Care Teams Linecasting Machine Keyboard Operator Relationship Specialty Start Date End Date Carol Campos DO [address] [place] [address] PCP - General FAMILY PRACTICE 07/19/24
--- OUTSIDE RECORDS SUMMARY | 2024-11-15 00:25 | XMS_ITS | Encounter Summary ---
Author Organization [facility] Care Team Providers Care Surveyor'S Assistant Name Role Phone Lorri Vernon Primary Care Provider + [phone] Екатерина Woodward APRN, ALL SOURCE INTELLIGENCE TECHNICIAN Unavailable [phone] Encounter Details Date Type Department Care Team (Latest Contact Info) Description 11/14/2024 Travel Social History Tobacco Use Types Packs/Day Years Used Date Smoking Tobacco: Never Smokeless Tobacco: Never Alcohol Use Standard Drinks/Week Comments Not Currently 0 (1 standard drink = 0.6 oz pur e alcohol) Comments Unknown Sex and Gender Information Value Date Recorded Sex Assigned at Not on file Legal Sex Female 1:44 PM HEADEND TECHNICIAN Gender Identity Not on file Sexual Orientation Not on file documented as of this encounter Plan of Treatment Upcoming Encounters Date Type Department Care Team (Late st Contact Info) Description 05/19/2025 9:30 AM CDT Office Visit [facility] - Neurology [facility] [address] [place] [address] Екатерина Woodward APRN, ALL SOURCE INTELLIGENCE TECHNICIAN [address] [place] [address] documented as of this encounter Visit Diagnoses Not on filedocumented in this encounter Care Teams Surveyor'S Assistant Relationship Specialty Start Date End Date Lorri Vernon PAC [address] [place] [address] PCP - General Physician Intellectual Property Counsel 08/24/23 Екатерина Woodward APRN, ALL SOURCE INTELLIGENCE TECHNICIAN [address] [place] [address] Nurse Practitioner Advanced Practice Nurse 08/31/23 documented as of this encounter
--- OUTSIDE RECORDS SUMMARY | 2024-11-15 00:25 | XMS_ITS | Clinical Summary ---
Author Organization [facility] Address [address] [place] [address] Care Team Providers Care Land Economist Name Role Phone Lorri Vernon Primary Care [...] mg total) by mouth daily Active rizatriptan PUBLIC WORKS COMMISSIONER (MAXALT-PUBLIC WORKS COMMISSIONER) 5 mg disintegrating tablet Take 1 tablet (5 mg total) by mouth daily as needed 4 Active Active Problems Problem Noted Date Diagnosed Date Anxiety 06/06/2024 Obesity (BMI 30.0-34.9) 06/06/2024 Atypical chest pain 06/06/2024 Chest pain 06/06/2024 Varicose veins of right lower extremity with sissy n 06/21/2022 Assessment & Plan (07/22/2022 1:46 PM FIRST BREAKER FEEDER): Patient returns to discuss the venous reflux [...] needed. Assessment & Plan (06/21/2022 1:24 PM FIRST BREAKER FEEDER): History of right medial thigh varicose vein [...] or Pediatric 05/03/1996,1995 HiB 1995 OPV 05/03/1996,1995 Surgical History Surgery Date Site/Laterality Comments WISDOM TOOTH EXTRACTION COSMETIC SURGERY BREAST REDUCTION TUBAL LIGATION CHOLECYSTECTOMY Medical History Medical History Date Comments Motion sickness PONV (postoperative nausea and vomiting) Allergic rhinitis GERD (gastroesophageal reflux disease) Depression Obesity History of PCR DNA positive for HSV2 Dental disease Dizziness Nosebleed Headache Recurrent upper respiratory infection (URI) COPD (chronic obstructive pulmonary disease) (HC C) 2020 Anxiety Family History Medical History Relation Name Comments Diabetes Mother Aster Lucas Relation Name Status Comments Mother Aster Lucas Social History Tobacco Use Types Packs/Day Years [...] on file Legal Sex Female 3:42 PM FIRST BREAKER FEEDER Gender Identity Female 03/14/2023 2:46 PM CDT Sexual Orientation Choose not to disclose 2024 3:29 PM FIRST BREAKER FEEDER Obstetrics History Last Filed Vital Signs Vital Sign Reading [...] 06/06/2024 2:18 PM CDT Plan of Treatment Health Maintenance Due Date Last Done Comments Cervical Cancer Screening 1995 Depression Screening 1995 Hepatitis C Screening 1995 Varicella Vaccines (1 of 2 - 13+ 2-dose series) 2008 Regular Well Visit/Exam 18-64 2013 Covid-19 Vaccine (3 - 2023-2 5 season) 2024 01/04/2021, 12/07/2020 DTaP/Tdap/Td Vaccine (4 - Td or Tdap) 06/28/2032 06/28/2022, 05/03/1996, 1995 Hepatitis B Screening Completed 05/03/1996 , 1995 Influenza Vaccine Completed 08/14/2024, 06/13/2022 HPV Vaccines Aged Out No longer eligi ble based on patient's age to complete this topic Pneumococcal vaccine <65 Aged Out No longer eligible based on patient's age to complete this topic Insurance [facility]O Address: [place] [address] [facility] CHOICE PLUS [facility] H[facility]/PPO Address: [facility] [address] [place] [address] Care Teams Land Economist Relationship Specialty Start Date End Date Lorri Vernon PA PCP - General 08/24/20
--- OUTSIDE RECORDS SUMMARY | 2024-11-15 00:25 | XMS_ITS | Encounter Summary ---
Author Organization [facility] Address [facility] [place] [address] Care Team Providers Care Primary Care Coordinator Name Role Phone Carol Campos DO Primary Care Provider [phone] Encounter Details Date Type Department Care Team (Late Contact Info) Description 11/14/2024 Medication Management [facility] - [place] [address] [place] [address] Carol Campos DO [address] [place] [address] Social History Tobacco Use Types Packs/Day Years Used Date Smoking Tobacco: Never Smokeless Tobacco: Never Alcohol Use Standard Drinks/Week Comments Yes 1 [...] Sex Assigned at Female 09/27/2024 10:50 AM BENDER HAND Legal Sex Female 1:41 PM CDT Gender Identity Female 09/27/2024 10:50 AM BENDER HAND Sexual Orientation Straight 08/22/2024 11 :52 AM BENDER HAND documented as of this encounter Plan of Treatment Upcoming Encounters Date Type Department Care Team (Late Contact Info) Description 11/29/2024 3:00 PM CDT Office Visit [facility] [place] [address] [place] [address] Carol Campos DO [address] [place] [address] documented as of this encounter Visit Diagnoses Diagnosis Moderate episode of recurrent major depressive disorder (CMS/HCC)- Primary documented in this encounter Additional Health Concerns Assessment Noted Time PHQ-9 Depression Total Score: 1 08/23/19 25 2:42 PM BENDER HAND documented as of this encounter Care Teams Primary Care Coordinator Relationship Specialty Start Date End Date Carol Campos DO [address] [place] [address] PCP - General FAMILY PRACTICE 07/19/24 documented as of this encounter
--- OUTSIDE RECORDS SUMMARY | 2024-11-15 00:25 | XMS_ITS | Clinical Summary ---
Author Organization [facility] Address [address] [address] Care Team Providers Care Apartment Maintenance Worker Name Role Phone Unavailable Primary Care Provider Unavailabl e Source Comments [facility],non-owned Affiliates and Associated Physician Practices is amultiple site organization consisting of ambulatory clinics and hospital sitesin [place], [place] and [place]. This disclosure is being madepursuant to the Care Everywhere program and may not contain all information available regarding this patient. Last updated 18.[employer] [facility] Allergies No known active allergies Medications * Be aware that medications may not be up to date on this document. Alwaysverify current medications with the patient. Medication Sig Dispensed Refills Start Date End Date Status valACYclovir HCl (VALTREX PO) Active Loratadine 10 MG Active Iron-Vitamin C (IRON 100/C PO) Active Family History Medical History Relation Name Comments None Known Father None Known Mother Relation Name Status Comments Father Mother Social History Tobacco Use Types Packs/Day Years Used Date Smoking Tobacco: Never Smokeless Tobacco: Never Tobacco Cessation:Counseling Given: Yes Sex and Gender Information Value Date Recorded Sex Assigned at Not on file Gender Identity Not on file Sexual Orientation Not on file Last Filed Vital Signs Vital Sign Reading Time Taken Comments Blood Pressure 108/70 10/07/2020 10:35 AM VISION MIXER Pulse 90 10/07/2020 10:35 AM VISION MIXER Temperature 37.3 C (99.2 F) 10/07/2020 10:35 AM VISION MIXER Respiratory Rate 16 10/07/2020 10:35 AM VISION MIXER Oxygen Saturation 99% 10/07/2020 10:35 AM VISION MIXER Inhaled Oxygen Concentration - - Weight 81.6 kg (180 lb) 10/07/2020 10:35 AM VISION MIXER Height 162.6 cm (5' 4 ) 10/07/2020 10:35 AM VISION MIXER Body Mass Index 30.9 10/07/2020 10:35 AM VISION MIXER Plan of Treatment Health Maintenance Due Date Last Done Comments PAP SMEAR 1995 HIV SCREENING 2010 HEPATITIS C SCREENING 03/24/2013 DTAP/TDAP/TD VACCINES (1 - Tdap) 2014 HEPATITIS B VACCINE (1 of 3 - 19+ 3-dose series) 2014 COVID-19 VACCINE (1 - 2023-2 5 season) 2024 INFLUENZA VACCINE (#1) 2024 DEPRESSION SCREENING 08/14/2024 ZOSTER VACCINE (1 of 2) 2045 HIB VACCINE Aged Out No longer eligi ble based on patient's age to complete this topic HPV VACCINE Aged Out No longer eligi ble based on patient's age to complete this topic MENINGOCOCCAL (Group B) VACC INE SHARED DECISION-MAKING Aged Out No longer eligibl e based on patient's age to complete this topic MENINGOCOCCAL GROUPS A/C/Y/W VACCINE Aged Out No longer eligible b ased on patient's age to complete this topic PNEUMOCOCCAL VACCINE Aged Out No long er eligible based on patient's age to complete this topic LAUREN MCNALLY Personal/Family [address] [address] [place] [address] LAUREN MCNALLY Personal/Family [address] [place] [address] [place] [address] LAUREN MCNALLY Personal/Family [address] [place] [address] [place] [address] Lauren Mcnally Personal/Family Self [address] [place] [id number]
--- OUTSIDE RECORDS SUMMARY | 2024-11-15 00:25 | XMS_ITS | Encounter Summary ---
Author Organization [facility] Address [facility] [place] [address] Care Team Providers Care Wire Splicer Name Role Phone Carol Campos DO Primary Care Provider [phone] Reason for Visit * Reason Onset Date Comments Medication 11/14/2024 Encounter Details Date Type Department Care Team (Late st Contact Info) Description 11/14/2024 Telephone [facility] Mult[facility] Care - [place] [address] [place] [address] Carol Campos DO [address] [place] [address] Medication Social History Tobacco Use Types Packs/Day Years [...] Sex Assigned at Female 09/27/2024 10:50 AM SHREDDER PICKER Legal Sex Female 1:41 PM CDT Gender Identity Female 09/27/2024 10:50 AM SHREDDER PICKER Sexual Orientation Straight 08/22/2024 11 :52 AM SHREDDER PICKER documented as of this encounter Progress Notes * Elida Jacobs - 11/14/2024 3:04 PM CDT Pt is asking if PCP can call in 5 days worth of bupropion 300 mg, she said she moved and can't findher medication. [facility] [place]. documented in this encounter Plan of Treatment Upcoming Encounters Date Type Department Care Team (Late st Contact Info) Description 11/29/2024 3:00 PM CDT Office Visit [facility] - [place] [address] [place] [address] Carol Campos DO [address] [place] [address] documented as of this encounter Visit Diagnoses Not on filedocumented in this encounter Additional Health Concerns Assessment Noted Time PHQ-9 Depression Total Score: 1 08/23/19 25 2:42 PM SHREDDER PICKER documented as of this encounter Care Teams Wire Splicer Relationship Specialty Start Date End Date Carol Campos DO [address] [place] [address] PCP - General FAMILY PRACTICE 07/19/24 documented as of this encounter
--- OUTSIDE RECORDS SUMMARY | 2024-11-15 00:25 | XMS_ITS | Encounter Summary ---
Author Organization [facility] Address [facility] [place] [address] Care Team Providers Care Upholstery Estimator Name Role Phone Carol Campos DO Primary Care Provider [phone] Encounter Details Date Type Department Care Team (Late Contact Info) Description 10/02/2024 MyChart Message Enc [facility] Mult[facility]pecialty Care - [place] [address] [place], [place] [id number] Carol Campos DO [address] [place] [address] Appt Social History Tobacco Use Types Packs/Day Years [...] Sex Assigned at Female 09/27/2024 10:50 AM TEST CLERK Legal Sex Female 1:41 PM CDT Gender Identity Female 09/27/2024 10:50 AM TEST CLERK Sexual Orientation Straight 08/22/2024 11 :52 AM TEST CLERK documented as of this encounter Plan of Treatment Upcoming Encounters Date Type Department Care Team (Late Contact Info) Description 11/29/2024 3:00 PM CDT Office Visit [facility] Mult[facility]pec[facility]ty [facility] - [place] [address] [place] [address] Carol Campos DO [address] [place] [address] documented as of this encounter Visit Diagnoses Not on filedocumented in this encounter Additional Health Concerns Assessment Noted Time PHQ-9 Depression Total Score: 1 08/23/19 25 2:42 PM TEST CLERK documented as of this encounter Care Teams Upholstery Estimator Relationship Specialty Start Date End Date Carol Campos DO [address] [place] [address] PCP - General FAMILY PRACTICE 07/19/24 documented as of this encounter
--- OUTSIDE RECORDS SUMMARY | 2024-11-15 00:25 | XMS_ITS | Clinical Summary ---
Author Organization [facility] Address [address] [place] [address] Care Team Providers Care Divemaster Name Role Phone Lorri Vernon Primary Care Provider [phone] Екатерина Woodward APRN, NETWORK FIREWALL ENGINEER Unavailable [phone] Allergies No known active allergies Medications ketoconazole (NIZORAL) 2 % Shampoo Apply daily. Active magnesium oxide (MAG-OX) 400 MG Tablet Take 400 mg by mouth daily. Active ondansetron (ZOFRAN) 4 MG Tablet Take 4 mg by mouth every 8 hours as needed. Active valACYclovir (VALTREX) 1 GM Tablet Take 1,000 mg by mouth 2 times daily. Active Rizatriptan Benzoate 5 MG TABLET DISPERSIBLEIndi cations:Episodi c migraine Take 1 Tablet by mouth once as needed for Migraine or Headaches. 10 Tablet 3 4 Active medroxyPROGESTE Isaak (PROVERA) 10 MG Tablet 4 Active buPROPion, Smoking Deter, (ZYBAN) 150 MG TABLET SR 12 HR Take 150 mg by mouth daily. Active metFORMIN (GLUCOPHAGE) 500 MG Tablet Take 500 mg by mouth daily. Active itraconazole (SPORANOX) 100 MG Capsule Take 100 mg by mouth daily. Active ALPRAZolam (XANAX) 0.5 MG TabletIndicatio ns:Episodic migraine Take 1 tablet one hour before MRI. Take second tablet 30 minutes before MRI if needed. 2 Tablet 4 11/15/19 25 Discontinu ed(Therapy completed) Active Problems No known active problems Encounters Date Type Department Care Team Description 11/14/2024 9:00 AM CDT [facility] [place] [address] [place] [address] Екатерина Woodward APRN, ABELARDO Chiari malformation type I (HCC) (Primary Dx); Episodic migraine Discharge Disposition: Discharged to home or Selfcare 11/14/2024 Travel 10/21/20[facility] [address] [place] [id number] Lorri Vernon PAC Advice Only from Last 3 Months Family History Medical History Relation Name Comments Hypertension Mother Obstructive Sleep Apnea Mother Polycystic Ovarian Syndrome Mother Relation Name Status Comments Father Alive Mother Alive Social History Tobacco Use Types Packs/Day Years Used Date Smoking Tobacco: Never Smokeless Tobacco: Never Tobacco Cessation:Counseling Given: Not Answered Alcohol Use Standard Drinks/Week Comments Not Currently 0 (1 standard drink = 0.6 oz pur e alcohol) Comments Unknown Sex and Gender Information Value Date Recorded Sex Assigned at Not on file Legal Sex Female 1:44 PM UTILITY AIDE Gender Identity Not on file Sexual Orientation [...] Mass Index 33.51 11/14/2024 9:11 AM CDT Plan of Treatment Upcoming Encounters Date Type Department Care Team (Late st Contact Info) Description 05/19/2025 9:30 AM CDT [facility] [address] [place] [address] Екатерина Woodward APRN, NETWORK FIREWALL ENGINEER [address] [place] [address] Health Maintenance Due Date Last Done Comments Pap Smear 05/20/2027 05/20/2024 Respiratory Syncytial Virus (RSV) Immunization (Adult) (1 - 1-dose 75+ series) 2070 SARS-COV-2 Immunization Completed 05/24/20, 01/04/2021, 12/07/2020 Influenza Immunization Completed , 05/24/2024, 06/13/2022 DTaP/Tdap/Td Immunization Discontinued 2024, 06/28/2022, 05/03/1996, Additional history exists Hepatitis C Virus (HCV) Screening Completed 09/06/2024 TdaP Immunization Completed 09/06/2024, 06/28/2022 Hepatitis B Immunization Completed 025, 05/03/1996, 1995 Meningococcal Immunization (ACWY) Aged Out No longer eligible based on patient's age to complete this topic Pneumococcal Immunization Combined Aged Out No longer eligible based on patient's age to complete this topic Rotavirus Immunization Aged Out No lo nger eligible based on patient's age to complete this topic Insurance [place] [id number] , [place] [id number] [facility] Care Teams Divemaster Relationship Specialty Start Date End Date Lorri Vernon, CHUY [address] [place] [address] PCP - General Physician Coupon Collection Clerk 08/24/23 Екатерина Woodward APRN, NETWORK FIREWALL ENGINEER [address] [place] [address] Nurse Practitioner Advanced Practice Nurse 08/31/23
--- OUTSIDE RECORDS SUMMARY | 2024-11-15 00:25 | XMS_ITS | Data Portability ---
Author Organization [facility] [place] Address [address] [place] [address] Care Team Providers Care Deputy Sheriff Building Guard Name Role Phone MIGUELLOUISE EMMANUEL Primary Care Provider Assessment Encounter Date Assessment Date Assessment LastModified by Organization Details LastModified Time 03/01/2022 03/01/2022 Annual gynecological exam performed. Patient will come back in a year unless there are new symptoms. [email or web address] Not available 03/01/2022 16:07:43 10/04/2022 10/04/2022 We discussed results of US and CT scan We discussed dysmenorrhea and that really hormonal mgt is first line treatment. Endometrial ablation is treatment for bleeding, not for pain, and I do not recommend this for her. she is considering mirena iud, we discussed this in depth, she will call if she wants it. we also briefly mentioned hysterectomy, she already has tubes tied, but her insurance is unlikely to cover unless she tries and fails hormonal mgt first. [email or web address] Not available 10/05/2022 09:20:41 Plan of Treatment Reminders Order Date Submit Date Provider Last Modified By Organization Details Last Modified Time Details Appointments None recorded . Lab hbcab (hepatit is B core Ab) igm, serum 2021 022 [facility] (Lab), [address], [place], [address], 23:10:05 HBsAg (hepatit is B surface Ag), serum 2021 022 [facility] (Lab), [address], [place], [address], 23:10:04 hepatiti s C virus Ab, serum 2021 [facility] (Lab), [address] [facility], [place], [address], 23:10:05 unlisted lab - HIV 1/2 antigen/ antibody , reflex confirma tion 2021 [facility] (Lab), [address], [place], [address], 23:10:04 RPR (rapid plasma reagin), serum 2021 [facility] (Lab), [address] [facility], [place], [address], 23:10:05 pregnanc y test, urine 2021 [facility], [address], [address], [place], [address], 17:28:13 hbcab (hepatit is B core Ab) igm, serum 2021 [facility] (Lab), [address] [facility], [place], [address], 22:57:20 HBsAg (hepatit is B surface Ag), serum 2021 [facility] (Lab), [address] [facility], [place], [address], 22:57:19 hepatiti s C virus Ab, serum 2021 [facility] (Lab), [address] [facility], [place], [address], 22:57:18 unlisted lab - HIV 1/2 antigen/ antibody , reflex confirma tion 2021 022 [facility] (Lab), [address] [facility], [place], [address], 2 22:57:19 RPR (rapid plasma reagin), serum 2021 [facility] (Lab), [address] [facility], [place], [address], 2 22:57:20 Referral dermatol ogist referral - Referrin g for Lesion of VulvaPle ase contact this patient to schedule an appointm entAttac hed are the patients demograp hics and most recent office visit notes.If you have any question s, please contact me at [phone].Th ank you,Evans abraham, Referral 's [address] [facility], [address] [place] [address], [address], 2 20:01:29 Procedures None recorded . Surgeries None recorded . Imaging US, transvag inal 2022 023 [email or web address] [place], [address], [place], [address], 3 18:50:27 US, pelvis, complete 2021 022 [email or web address] [place], [address], [place], [address], 3 12:23:45 Medication Orders None recorded . Patient TargetsNo targets recorded. Patient InstructionsNo instructions recorded. Reason for Referral General Repairer Referral for L esion of vulva Lesion of Vulva Referring for Lesion of VulvaPlease contact this patient to schedule an appointmentAttached are the patients demographics and most recent office visit notes.If you have any questions, please contact me at [phone].Thank you,Vanesa, Referral's Referring Physician: Carmencita Alejo, RN ADMIT, Encounter Date: 03/01/2022 Results Created Date Observation Date Name Description Value Unit Range Abnormal Flag Note LastModifiedBy Organization Detail LastModifiedTime 03/01/20 22 03/01/2022 HEPAT ITIS C ANTIB WILLIAMS SCREE N, REFLE X TO CONFI RMATI ON hepatitis C antibody Non-re active non-re active This assay was perfo rmed using [employer] ratio n reage nts and test kits. Value s obtai ann-marie with other assay metho ds or kits canno t be used inter marques eably . Not Available [facility] [address] [place] [address], [address], 03/02/2022 22:57:18 03/01/20 22 03/01/2022 HEPAT ITIS B SURFA CE ANTIG EN hepatitis B surface antigen Non-re active non-re active This assay was perfo rmed using [employer] n reage nts and test kits. Value s obtai ann-marie with other assay metho ds or kits canno t be used inter marques eably . Not Available [facility] [address] [place], [address], 03/02/2022 22:57:19 03/01/20 22 03/01/2022 HIV 1/2 ANTIG EN/AN TIBOD Y, REFLE X CONFI RMATI ON HIV Ag-Ab total quant 0.10 idx <1.00 Not Available [facility] [address] [place], [address], 03/02/2022 22:57:19 03/01/20 22 03/01/2022 HIV 1/2 ANTIG EN/AN TIBOD Y, REFLE X CONFI RMATI ON HIV Ag-Ab total Non-re active non-re active Not Available [facility] [address] [place], [address], 03/02/2022 22:57:19 03/01/20 22 03/01/2022 HIV 1/2 ANTIG EN/AN TIBOD Y, REFLE X CONFI RMATI ON HIV-1 antibody quant 0.10 idx <1.00 Not Available [facility] [address] [place], [address], 03/02/2022 22:57:19 03/01/20 22 03/01/2022 HIV 1/2 ANTIG EN/AN TIBOD Y, REFLE X CONFI RMATI ON HIV-1 antibody Non-re active non-re active Not Available [facility] [address] [place], [place] [address], [address], 03/02/2022 22:57:19 03/01/20 22 03/01/2022 HIV 1/2 ANTIG EN/AN TIBOD Y, REFLE X CONFI RMATI ON HIV-1 antigen (P24) quant 0.07 idx <1.00 Not Available [facility] [address] [place] [address], [address], 03/02/2022 22:57:19 03/01/20 22 03/01/2022 HIV 1/2 ANTIG EN/AN TIBOD Y, REFLE X CONFI RMATI ON HIV-1 antigen (P24) Non-re active non-re active Not Available [facility] [address] [place], [address], 03/02/2022 22:57:19 03/01/20 22 03/01/2022 HIV 1/2 ANTIG EN/AN TIBOD Y, REFLE X CONFI RMATI ON HIV-2 antibody quant 0.07 idx <1.00 Not Available [facility] [address] [place], [address], 03/02/2022 22:57:19 03/01/20 22 03/01/2022 HIV 1/2 ANTIG EN/AN TIBOD Y, REFLE X CONFI RMATI ON HIV-2 antibody Non-re active non-re active HIV testi ng is perfo rmed using Multi plex[employer] Bead Immun oassa y techn ology . The final overa ll HIV Ag-Ab resul t is deter mined based on the final resul t for each indiv idual bhupendra te. If any of the bhupendra yannick has 2 or more repli cates that are REACT ROBYN, the final overa ll HIV Ag-Ab resul t is also React robyn. A Non-R eacti ve test resul t at any point in the inves tigat ion of indiv idual subje cts does not precl ude the possi bilit y of expos ure to or infec tion with HIV-1 and/o r HIV-2 . Non-R eacti ve resul ts can occur if the quant ity of marke r prese nt in the sampl e is below the detec tion limit s of the assay . React robyn speci mens must be inves tigat ed by addit ional , more speci fic suppl ement al tests . Speci men confi rmati on will be perfo rmed by the SeeOn us HIV 1/2 Suppl ement al Assay . The perfo rmanc e of this assay has not been estab lishe d for neona yannick and the assay shoul d not be used in indiv idual s young er than 2 years of age. Not Available [facility] [address] [place], [address], 03/02/2022 22:57:19 03/01/20 22 03/01/2022 RPR SCREE N/REF GEO TITER /FTA RPR screen Nonrea ctive nonrea ctive Not Available [facility] [address], [place], [address], 03/02/2022 22:57:20 03/01/20 22 03/01/2022 HEPAT ITIS B CORE, IGM hepatitis B core IgM antibody Negati ve negati ve Not Available [facility] [address], [place], [address], 03/02/2022 22:57:20 03/01/20 22 03/01/2022 IMAGE GUIDE D PAP, REFLE X HPV IF ASCUS ONLY image guided Pap, reflex HPV ASCUS only SEE RESULT S BELOW CASE REPOR T: Cytol ogy Gynec ologi arnav Repor t Case: [id number] Autho ortega g Provi carmel: Carmencita Alejo, SUPERVISORY GEOGRAPHER Colle cted: 03/01 1558 Order ing Locat ion: [place] [facility] Recei oleksandr: 03/02 0733 First Pa[facility] n: Sasha Zayas, CT Speci men: Genevieve lopez Pap - Image d, Cervi x STATE MENT OF ADEQU ACY: Satis facto ry for evalu ation Trans forma tion zone compo nent prese nt FINAL DIAGN OSIS: Negat robyn for Intra epith elial Lesagata owens or Glenn castrejon (NIL) . Elect julito malik d by Sasha Zayas, CT on 2021 at 9:08 AM ----- ----- ----- ----- ----- ----- ----- ----- ----- ----- ----- ----- ----- ----- ----- ----- ----- ---- COMME NT: Note: This speci men was revie wed by a Cytot echno logis t and/o r Patho logis t (as indic ated in this repor t) after evalu ation using the Thinp rep Imagi ng Syste m. CLINI ARNAV INFOR MATIO N: Menst rual Statu s: LMP (if appli cable ): Clini arnav Histo ry/Pr eviou s Pap: Type of Neopl leonides (if appli cable ): Signi fican t Clini arnav Findi ngs: Other Histo ry: Hormo anson (if appli cable ): PAP EDUCA LIANA L NOTE: The Pap Test is a scree jessica test with an inher ent false negat robyn rate. Liqui d-bas ed sampl ing may decre ase, but will not elimi piyush, false negat robyn resul ts. A negat robyn resul t does not precl ude the prese nce and/o r devel opmen t of disea se, since the prese nce of abnor mal cells in the sampl e depen ds on the locat ion of the lesio n and sampl ing techn ique. Sheldon nued regul ar scree jessica is the best metho d of cance r preve ntion . If repor lacy cytol ogic findi ng do not corre late with physi arnav and/o r histo rical findi ngs, furth er inves tigat ion is recom yoly d, as clini bia terrazas nted. Not Available [facility] [address] [place] [address], [address], 03/06/2022 10:10:31 03/01/20 22 03/01/2022 TRICH OMONA S VAGIN CORTNEY (RRNA ) trichomonas vaginalis ribosomal RNA (rrna) Negati ve negati ve Not Available [facility] [address] [place] [address], [address], 03/06/2022 10:10:35 03/01/20 22 03/01/2022 CT/GC (RADHA) , THINP REP VIAL chlamydia trachomatis, PCR Negati ve negati ve Not Available [facility] [address] [place] [address], [address], 03/06/2022 10:10:35 03/01/20 22 03/01/2022 CT/GC (RADHA) , THINP REP VIAL neisseria gonorrhoeae, PCR Negati ve negati ve Not Available [facility] [address] [place] [address], [address], 03/06/2022 10:10:35 08/01/20 22 08/01/2022 CT/GC AND TRICH OMONA S VAGIN CORTNEY (RRNA ), SWAB chlamydia trachomatis, PCR Negati ve negati ve Not Available [facility] (Lab) [address] [facility], [place], [address], 08/02/2022 22:00:03 08/01/20 22 08/01/2022 CT/GC AND TRICH OMONA S VAGIN CORTNEY (RRNA ), SWAB neisseria gonorrhoeae, PCR Negati ve negati ve Not Available [facility] (Lab) [address] [facility], [place], [address], 08/02/2022 22:00:03 08/01/20 22 08/01/2022 CT/GC AND TRICH OMONA S VAGIN CORTNEY (RRNA ), SWAB trichomonas vaginalis ribosomal RNA (rrna) Negati ve negati ve Not Available [facility] (Lab) [address] [facility], [place], [address], 08/02/2022 22:00:03 08/01/20 22 08/01/2022 VAGIN ITIS/ VAGIN OSIS, DNA PROBE kenneth sp. detection, direct probe Negati ve negati ve Not Available [facility] (Lab) [address] [facility], [place], [address], 08/02/2022 22:00:04 08/01/20 22 08/01/2022 VAGIN ITIS/ VAGIN OSIS, DNA PROBE gardnerella vag. detection, direct probe Negati ve negati ve Not Available [facility] (Lab) [address] [facility], [place], [address], 08/02/2022 22:00:04 08/01/20 22 08/01/2022 VAGIN ITIS/ VAGIN OSIS, DNA PROBE trichomonas vag. detection, direct probe Negati ve negati ve Not Available [facility] (Lab) [address] [facility], [place], [address], 08/02/2022 22:00:04 08/01/20 22 08/01/2022 HEPAT ITIS B SURFA CE ANTIG EN hepatitis B surface antigen Non-re active non-re active This assay was perfo rmed using [employer] ratio n reage nts and test kits. Value s obtai ann-marie with other assay metho ds or kits canno t be used inter marques eably . Not Available [facility] (Lab) [address] [facility], [place], [address], 08/02/2022 23:10:04 08/01/20 22 08/01/2022 HIV 1/2 ANTIG EN/AN TIBOD Y, REFLE X CONFI RMATI ON HIV antigen/anti body Nonrea ctive nonrea ctive HIV-1 antig en and HIV-1 /HIV- 2 antib odies were not detec lacy. No labor atory evide nce of HIV infec tion. Not Available [facility] (Lab) [address] [facility], [place], [address], 08/02/2022 23:10:04 08/01/20 22 08/01/2022 HEPAT ITIS C ANTIB WILLIAMS SCREE N, REFLE X TO CONFI RMATI ON hepatitis C antibody Non-re active non-re active Antib odies to HCV Not Detec lacy, does not exclu de the possi bilit y of expos ure to HCV. Not Available [facility] (Lab) [address], [place], [address], 08/02/2022 23:10:05 08/01/20 22 08/01/2022 RPR SCREE N/REF GEO TITER /FTA RPR screen Nonrea ctive nonrea ctive Not Available [facility] (Lab) [address] [place], [address], 08/02/2022 23:10:05 08/01/20 22 08/01/2022 HEPAT ITIS B CORE, IGM hepatitis B core IgM antibody Negati ve negati ve Not Available [facility] (Lab) [address], [place], [address], 08/02/2022 23:10:05 08/01/20 22 08/01/2022 CULTU RE: URINE result report SEE RESULT S BELOW Test: Cultu re: Urine Speci men Sourc e: Urine Voide d Speci men Type: Urine Speci men Date: 08/01 6:41 PM Resul t Date: 08/03 5:57 AM Resul t Statu s: Final resul t Abnor mal: No Resul ting Lab: [facility] [address] [facility] [address] Tel: CULTU RE ----- ----- ----- --- No growt h in 1 day (dete ction level of 10,00 0 colon ies / ml.) Not Available [facility] (Lab) [address] [facility], [place], [address], 08/03/2022 07:01:17 08/01/20 22 08/01/2022 pregn ramesh test, urine HCG negati ve Not Available [place] [address], [place], [address], 08/01/2022 17:27:23 08/17/19 23 08/17/2022 BHCG, QUANT ITATI VE B-HCG <0.2 mIU/m L This assay was perfo rmed using [employer] ratio n reage nts and test kits. Value s obtai ann-marie with other assay metho ds or kits canno t be used inter marques eably . Refer ence Range s: Non-p regna nt, preme nopau cheryl women : 0.0-5 .3 mIU/m L Postm enopa usal women : 0.0-7 .0 mIU/m L Keke l Pregn ramesh: Gesta liana l Age bHCG Conc. - mIU/m L 3 Weeks 5.8 - 71.7 4 Weeks 9.5 - 750 5 Weeks 217-7 138 6 Weeks 158 - 31,79 5 7 Weeks 3,697 - 162,5 63 8 Weeks 32,06 5 - 149,5 71 9 Weeks 63,80 3 - 151,4 10 10 Weeks 46,50 9 - 186,9 77 12 Weeks 27,83 2 - 210,6 12 14 Weeks 13,95 0 - 62,53 0 15 Weeks 12,03 9 - 70,97 1 16 Weeks 9,040 - 56,45 1 17 Weeks 8,175 - 55,86 8 18 Weeks 8,099 - 58,17 6 Not Available [facility] (Lab) [address], [place], [address], 08/18/2022 09:20:59 08/22/19 23 08/22/2022 US, trans vagin al No observ ation record ed. [email or web address] [place] [address], [place], [address], 08/22/2022 15:20:40 08/22/19 23 08/22/2022 US, trans vagin al No observ ation record ed. BEAN [address] [facility], [place], [address], 08/23/2022 20:41:01 Result Notes None recorded. Problems Name Problem SNOMED Code Status Onset Date Resolution Date Notes Provider Name and Address Organization Details Recorded Time Genital herpes simplex 12471369 Active 2020 Aster Larson MD [address], [place], [address], [facility] 1 12:27:18 Dysmenorrhea 749306491 Active 2022 Aster Larson MD [address], [place], [address], [facility] 3 09:18:59 Problem Notes None recorded. Procedures Surgical History Date Name Laterality Status Provider Name and Address Organization Details Recorded Time 1 Date of Last Pap Smear completed Mala Mcclendon [facility] 02/05/2021 14:09:23 9 Tubal Ligation completed Janeen Cooper [facility] 01/20/2021 12:05:51 8 extraction of wisdom tooth completed [facility] 01/20/2021 12:06:01 5 Breast reduction completed [facility] 01/20/2021 12:05:43 Imaging Results Imaging Date Name Status LastModified by Organization Details LastModified Time 08/22/2022 US, transvaginal completed [email or web address] [facility] [address], [place], [address], 08/22/2022 15:20:40 08/22/2022 US, transvaginal completed BEAN [address], [place], [address], 08/23/2022 20:41:01 Procedure Notes None recorded. Medical Equipment None Reported. Allergies No known drug allergies Medications Name Sig Start Date Stop Date Status Note LastModified by Organization Details LastModified Time doxycycline hyclate 100 mg capsule 08/01 completed Not Available Not Available Not Available ketoconazol e 2 % shampoo 08/01 completed Not Available Not Available Not Available cetirizine 10 mg tablet 10/04 completed Not Available Not Available Not Available azithromyci n 250 mg tablet 08/01 completed Not Available Not Available Not Available fluconazole 150 mg tablet 08/01 completed Not Available Not Available Not Available valacyclovi r 1 gram tablet active Not Available Not Available Not Available hydrocodone 5 mg-acetamin ophen 325 mg tablet 09/14 completed Not Available Not Available Not Available fluconazole 200 mg tablet 08/01 completed Not Available Not Available Not Available ondansetron HCl 4 mg tablet take 1 tablet every 6 hours as needed for nausea and vomiting 09/14 completed Not Available Not Available Not Available penicillin V potassium 500 mg tablet 08/01 completed Not Available Not Available Not Available metronidazo le 500 mg tablet active Not Available Not Available Not Available amoxicillin 875 mg tablet 09/14 completed Not Available Not Available Not Available clindamycin phosphate 1 % topical swab 08/01 completed Not Available Not Available Not Available methylpredn isolone 4 mg tablets in a dose pack 09/14 completed Not Available Not Available Not Available albuterol sulfate HFA 90 mcg/actuati on aerosol inhaler 09/14 completed Not Available Not Available Not Available ketoconazol e 2 % topical cream 10/04 completed Not Available Not Available Not Available ondansetron 4 mg disintegrat ing tablet 10/04 completed Not Available Not Available Not Available fluticasone propionate 50 mcg/actuati on nasal spray,suspe nsion active Not Available Not Available Not Available amoxicillin 875 mg-potassiu m clavulanate 125 mg tablet 08/01 completed Not Available Not Available Not Available clindamycin 1 % lotion 08/01 completed Not Available Not Available Not Available bupropion HCl XL 300 mg 24 hr tablet, extended release active Not Available Not Available Not Available bupropion HCl XL 150 mg 24 hr tablet, extended release 08/01 completed Not Available Not Available Not Available nitrofurant oin monohydrate /macrocryst als 100 mg capsule 08/01 completed Not Available Not Available Not Available Claritin 10/04 completed Not Available Not Available Not Available Valtrex 08/01 completed Not Available Not Available Not Available Victoza 3-Daniel 0.6 mg/0.1 mL (18 mg/3 mL) subcutaneou s pen injector 10/04 completed Not Available Not Available Not Available Ozempic active Not Available Not Avail able Not Available Aurovela Fe 1-20 (28) 1 mg-20 mcg (21)/75 mg (7) tablet Take 1 tablet every day by oral route. 08/01 completed Not Available Not Available Not Available Vitals Date Recorded Body height Body mass index (BMI) Body weight Systolic blood pressure Diastolic blood pressure Provider Name and Address Organization Details Last Updated DateTime 03/01/2022 162.56 cm 30.6 kg/m2 51502.16 g 109 mm[Hg] 77 mm[Hg] Monica Dougherty [facility] 2 16:08:06 Date Recorded Body height Systolic blood pressure Diastolic blood pressure Provider Name and Address Organization Details Last Updated DateTime 08/01/2022 162.56 cm 122 mm[Hg] 85 mm[Hg] Monica Mendesjj [facility] 08/01/2022 17:05:16 Date Recorded Body height Systolic blood pressure Diastolic blood pressure Provider Name and Address Organization Details Last Updated DateTime 09/05/2022 162.56 cm 124 mm[Hg] 85 mm[Hg] Monica Mendesjj [facility] 09/05/2022 11:30:21 Date Recorded Body height Body mass index (BMI) Body weight Systolic blood pressure Diastolic blood pressure Provider Name and Address Organization Details Last Updated DateTime 10/04/2022 162.56 cm 26.8 kg/m2 82788.41 g 125 mm[Hg] 84 mm[Hg] Janeen Salinashayden [facility] 16:50:27 Social History Question Answer Notes LastModified by Organizat ion Details LastModified Time Tobacco Smoking Status Never Smoker Monica Winslowban [facility], [facility] 03/01/2022 16:08:14 Do You Have An Advance Directive? No Information n ot available 03/01/2022 What Is Your Level Of Alcohol Consumption? Occasional Information not available 01/20/2021 Are You Blind Or Do You Have Difficulty Seeing? No [email or web address] Information n ot available 02/05/2021 What Is Your Level Of Caffeine Consumption? Occasional [email or web address] Information not available 02/05/2021 How Much Tobacco Do You Chew? None Information not available 03/01/2022 In The 14 Days Before Symptom Onset, Have You Had Close Contact With A Laboratory-confirm ed COVID-19 While That Case Was Ill? No [email or web address] Information n ot available 02/05/2021 In The 14 Days Before Symptom Onset, Have You Had Close Contact With A Person Who Is Under Investigation For COVID-19 While That Person Was Ill? No [email or web address] Information not available 02/05/2021 Have You Been To An Area Known To Be High Risk For COVID-19? No [email or web address] Information not available 02/05/2021 Are You Deaf Or Do You Have Serious Difficulty Hearing? No [email or web address] Information not available 02/05/2021 What Type Of Diet Are You Following? REGULAR [email or web address] Information n ot available 02/05/2021 What Is The Highest Grade Or Level Of School You Have Completed Or The Highest Degree You Have Received? [id number] Information not available 03/01/2022 Are There Any Guns Present In Your Home? No Information not available 03/01/2022 Have You Ever Been Counseled For Unhealthy Alcohol Use? No Information not available 03/01/2022 Do You Use Protection During Sex? Usually Information not available 03/01/2022 Do You Use Your Seat Belt Or Car Seat Routinely? Yes [email or web address] Information not available 02/05/2021 Do You Have Smoke And Carbon Monoxide Detectors In Your Home? Yes [email or web address] Information not available 02/05/2021 How Much Tobacco Do You Smoke? No Information not available 03/01/2022 Do You Feel Stressed (tense, Restless, Nervous, Or Anxious, Or Unable To Sleep At Night)? [id number] Information not available 03/01/2022 Do You Use Any Illicit Or Recreational Drugs? No Information not available 01/20/2021 Do You Use Sunscreen Routinely? Yes [email or web address] Information not available 02/05/2021 Has Tobacco Cessation Counseling Been Provided? No Information not available 03/01/2022 Have You Used IV Drugs? No Information not available 03/01/2022 Do You Or Have You Ever Used Any Other Forms Of Tobacco Or Nicotine? No Information not available 03/01/2022 Sex: Unknown Functional Status Question Answer Note LastModified by Organizat ion Details LastModified Time Do you have difficulty walking or climbing stairs? No Information not available 03/01/2022 Are you able to walk? YESWOREST [email or web address] Information not available 02/05/2021 Are you able to care for yourself? Yes Information not available 03/01/2022 Do you have difficulty dressing or bathing? No Information not available 03/01/2022 What is your exercise level? Occasional [email or web address] Information not available 02/05/2021 Mental Status None recorded. Family History Relationship Description Onset Age of this Age Resolved Age Notes LastModified by Organization Details LastModified Time Mother Cyst of ovary [email or web address] Not available 2020 12:12:56 Notes:Pt adopted Medical History Condition Response Allergies (Food, seasonal, environmental ) N Other N Breast Cancer N Drug/Latex Allergies/Reactions N Blood Transfusion N Dermatologic Disorders N Lung Disease N Defects or Inherited Disease N Breast Problem Y Gestational Diabetes N Hematologic disorders N Anesthesia Complications N History of STI Y Deep Vein Thrombosis N Polycystic ovary syndrome N Anxiety Disorder Y Autoimmune disease N Arthritis N Infertility N Polyps N Acid Reflux (GERD) N History of abnormal pap N Cancer N Stroke N Varicosities N Neurologic/Epilepsy N Endometriosis N High Cholesterol N Headaches N Fibromyalgia N Kidney Disease N Heart Problems N Kidney or Bladder Problems N Thyroid Problems N GI Problems N Eating Disorder N Anemia N Art (IVF or FET) N Psychiatric Illness N Ovarian Cancer N Diabetes N Pulmonary (TB, Asthma) N Hepatitis/Liver Disease N No Past Medical History N Eczema N Urinary Tract Infection N Abuse/Domestic Violence N Asthma N Trauma/Violence N Depression/ depression Y Heart Disease N Pre-Eclampsia N Hypertension N Osteoporosis N Thrombophilias N Gynecological History Statement/Question Response Flow Moderate Date of LMP 10/02/2022 On BCP's at Conception? N N STIs/STDs Y Was last menstrual period normal Y HPV Vaccine Y Duration of Flow (days) 6 Current Control Method Tubal Ligat ion Sexually Active? Y Date of Last Pap Smear 01/20/2021 Sexual Problems? N N Obstetrics History GPAL:G 0 P 0 0 0 0 Past Encounters Encounter ID Performer Location Encounter Start Date Encounter Closed Date Diagnosis/Indication Diagnosis SNOMED-CT Code Diagnosis ICD10 Code Diagnosis Note [id number] Aster Larson MD [facility] [address] [address] 01/20/2021 11:59:39 01/20/2021 14:07:56 Gynecologic examination 32160977 Z01.419 Secondary dysmenorrhea 99802855 N94.5 Mild depression 76907584 3 F32.0 [id number] [facility] [address],[place] [address] 02/05/2021 13:51:20 02/05/2021 15:06:47 Vaginitis 48439668 N76.0 Weight gain 1034417 R63. 5 Hirsutism 644618368 L68. 0 [id number] Aster Larson MD [facility] [address],[place] [address] 09/14/2021 14:49:28 09/15/2021 11:25:10 Venereal disease screening 108257523 Z11.3 Bacterial vaginosis 4197 65523 N76.0 [id number] ANA Winkler [facility] [address],[place] [address] 03/01/2022 15:53:08 03/02/2022 17:26:58 Venereal disease screening 790969963 Z11.3 Sexually t ransmitted infectious disease 9976211 A64 Gynecologi c examination 59622945 Z01.419 Take Calcium with Vitamin D 1200mg daily if not receiving in daily diet. It is strongly advised to have an annual flu shot and up can obtain at most pharmacies . If you have not had a TDap shot in the last 10 years you should obtain one as well. Discussed with patient & provided with informatio n regarding Gardisil vaccine to prevent the 4 strains for HPV that cause cervical cancer if under age 26. Encourage safe sexual practices, to use condoms and limit partners if not already in a monogamous relationsh ip. Do monthly self breast exams. Have mammogram yearly or every other year depending on family history. BRCA testing is now available for patients with strong genetic history of female cancer. If interested contact the office. Engage in daily exercise of low impact aerobic exercise 45-60 minutes 4-5 times weekly. Avoid tobacco and illicit drugs as well as using moderation with alcohol intake less than 1-2 8 oz beverages daily. This lifestyle behavior pattern will lead to less health conditions and longer life span. If BMI greater than 25 weight watchers or dietary consult advised. Patient received above instructio ns, and questions have been answered. If you have any questions please call or respond to this email. Patient was made aware of the patient portal and may obtain a paper copy of today's plan if desired. WWEBTL for contracept ionTaking daily valtrex for HSV 2 suppressio n, has about 3-4 outbreaks / yearNo hx of abnormal papLast pap 01/20/2021 NILMNo pap needed today per ASCCP guidelines (next due 01/21/2024), desires papPap doneSTI testing added to papBlood STI panel orderedOn exam, vulvar lesion, about 1 cm from left labia majora. Lesion is 1-2mm in size, flat, brown/xavier k in color, irregular borders. Patient states it has always been there, no changes. I advised a biopsy of this site. Patient desires to see dermatolog ist, as she already needs to see on for other lesions on her body. I discussed if she does not see the dermatolog ist she needs to RTC for us to biopsy.RTC in 1 year for WWE or sooner if needed Lesion of vulva 38864692 6 N90.89 [id number] ANA Winkler [facility] [address],[place] [address] 08/01/2022 16:56:58 08/02/2022 16:05:24 Venereal disease screening 740554518 Z11.3 Sexually t ransmitted infectious disease 5345184 A64 Irregular periods 134142 07 N92.6 Dysmenorrhea 917797252 N 94.6 U/s orderedSTI endocervic al testing sentBlood STI panel orderedUri ne culture sentVagini tis panel sentReleas e of records signed for recent ED visitDiscu ssed potential BC options to help with painful periodsRTC for pelvic u/s and f/u appointmen t Time spent in visit is a total of 35 mins with at least 50% of visit consisting of counseling and review of plan of care. Pruritus of vagina 43590 003 L29.3 [id number] Gracie Peres [facility] [address],[place] [address] 08/22/2022 12:06:03 08/22/2022 13:22:52 Pain in pelvis 69166253 R10.2 [id number] ANA Winkler [facility] [address],[place] [address] 09/05/2022 11:26:16 09/05/2022 17:55:09 Dysmenorrhea 847472431 N94.6 Today we reviewed recent TVUS - normalDisc ussed her recent CT scan that noted possible adenomyosi s. Discussed difficult to diagnosis adenomyosi s based off of imaging alone.We discussed possibilit y of endometrio sis as well given longevity of painful periodsWe reviewed BC options to help with dysmenorrh ea. We reviewed all options. She may be interested in Mirena IUD. We discussed R/B of IUD, discussed placement, etc. Mirena IUD handout given to patient. If interested , can insert IUD on days 1-5 of next period.She would like MD consult to discuss her options further, MD consult scheduled Time spent in visit is a total of 30 mins with at least 50% of visit consisting of counseling and review of plan of care. [id number] Aster Larson MD [facility] [address] [address] 10/04/2022 16:45:21 10/05/2022 15:26:51 Dysmenorrhea 730678909 N94.6 Health Concerns Section Related Observation LastModified by Organization Detai ls LastModified Time None Recorded Concern Status LastModified by Organization Details LastModified Time None Recorded Advance Directives Directive N: Payers Encounter Date Sequence Insurance Name Policy Number Policy Polanco Covered Member ID Polanco Member ID Guarantor Name 03/01/2022 1 [facility] - DOS ON OR AFTER 21 (MEDICAID REPLACEMENT - HMO) Gudelia Rand [id number] Gudelia Rand 08/01/2022 1 [facility] - DOS ON OR AFTER 21 (MEDICAID REPLACEMENT - HMO) Gudelia Rand [id number] Gudelia Rand 08/22/2022 1 [facility] - DOS ON OR AFTER 21 (MEDICAID REPLACEMENT - HMO) Gudelia Rand [id number] Gudelia Rand 09/05/2022 1 [facility] - DOS ON OR AFTER 21 (MEDICAID REPLACEMENT - HMO) Gudelia Rand [id number] Gudelia Rand 10/04/2022 1 [facility] ON OR AFTER 02/11/21 (MEDICAID REPLACEMENT - HMO) Gudelia Rand [id number] Gudelia Rand Notes Date Note Type Note Provider Name and Address Organization Details Recorded Time 03/01/2022 text/html Annual GYNReport ed bypatient.Menstrua l cycle:Normal menses Urinary symptoms:No hematuria; No incontinence Vulva:No genital lesion Vagina:Normal vaginal discharge Breast:No breast pain; No breast lump; No nipple discharge Current Contraception:Tuba l ligation Sexual complaints:No sexual complaints; No pain during intercourse; Normal libido Menopausal Symptoms:No menopausal symptoms; Normal vaginal lubrication Psychological symptoms:No depression; No anxiety; No PMDD Preventive measures:Encourage self breast examination; Encourage regular exercise; Encourage no tobacco use; Encourage regular mammograms starting age 40 ANA Winkler [address], [place], [address], [facility] 03/02/2022 09:06:58 08/01/2022 text/html 27yo [id number] for ED f[place] for abdominal pain/cramping during her period. Patient states they did a CT scan and she was told she had adenomyosis.She currently has no pain, period has endedPatient states her periods have been increasingly more painful over the last 1-2 years. Significant cramping, some nausea during her periods. Her periods last 5 days, changing pads/tampons every 3-4 hours.She has had some urinary frequency lately, no burning or pain with urination.Slight vaginal itching on and off, none today. Denies any vaginal discharge or odors.BTL for ANA Winkler [address], [place], [address], [facility] 08/02/2022 14:47:34 09/05/2022 text/html 27yo Presents fo r pelvic u/s f/u 27yo K7Jhjdazpu for ED f/uWas seen in [place] last month for abdominal pain/cramping during her period. Patient states they did a CT scan and she was told she had adenomyosis.She currently has no pain, period has endedPatient states her periods have been increasingly more painful over the last 1-2 years. Significant cramping, some nausea during her periods. Her periods last 5 days, changing pads/tampons every 3-4 hours.She has had some urinary frequency lately, no burning or pain with urination.Slight vaginal itching on and off, none today. Denies any vaginal discharge or odors.BTL for ANA Winkler [address], [place], [address], [facility] 09/05/2022 17:31:36 10/04/2022 text/html Yolie is here to follow up on dysmenorrhea. Had a CT scan that showed possible adenomyosis. Had a normal US here. Saw Carmencita to discuss options for this. Has tubes tied. Asking about an ablation. Aster Larson MD [address], [place], [address], [facility] 10/05/2022 09:21:00 OBGyn Episode No OBEpisode recorded.
--- OUTSIDE RECORDS SUMMARY | 2024-11-15 00:25 | XMS_ITS | Encounter Summary ---
Author Organization [facility] Address [address] [place] [address] Phone Care Team Providers Care Senior Contract Specialist Name Role Phone Lorri Vernon CHUY Primary Care Provider [phone] Екатерина Woodward APRN, INTERNAL GRINDER Unavailable [phone]- [phone] Reason for Visit * Reason Comments Medication Refill Encounter Details Date Type Department Care Team (Late Contact Info) Description 09/29/2023 Refill [facility] [address] [place] [address] Екатерина Woodward APRN, INTERNAL GRINDER [address] [place] [address] Medication Refill Social History Tobacco Use Types Packs/Day Years Used Date Smoking Tobacco: Never Smokeless Tobacco: Never Alcohol Use Standard Drinks/Week Comments Not Currently 0 (1 standard drink = 0.6 oz pur e alcohol) Comments Unknown Sex and Gender Information Value Date Recorded Sex Assigned at Not on file 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 Gender Identity Not on file Sexual Orientation Not on file documented as of this encounter Plan of Treatment Upcoming Encounters Date Type Department Care Team (Late Contact Info) Description 05/19/2025 9:30 AM CDT Office Visit [facility] [address] [place] [address] Екатерина Woodward APRN, INTERNAL GRINDER [address] [place] [address] documented as of this encounter Visit Diagnoses Diagnosis Episodic migraine documented in this encounter Care Teams Senior Contract Specialist Relationship Specialty Start Date End Date Lorri Vernon PAC [address] [place] [address] PCP - General Physician Laundry Superintendent 08/24/23 Екатерина Woodward APRN, INTERNAL GRINDER [address] [place] [address] Nurse Practitioner Advanced Practice Nurse 08/31/23 documented as of this encounter
--- NOTE | 2024-11-15 06:34 | WPDHPUPDATE1 ---
History and Physical Update Update Date/Time: 11/15/24 06:34 History and Physical has been reviewed, including an updated exam of the patient. There are NO changes in the patient's condition. Risks, benefits, and alternatives have been discussed and questions answered. Patient agrees to proceed with procedure.
[2024-11-15] MEDS: LACTATED RINGERS 1,000 ML 30 ML IV CONT ×2 (07:30→09:26)
--- NOTE | 2024-11-15 08:15 | P.PNAN_ITS ---
Anes - Initial Pre Proc Eval Procedure: Operation Date: 11/15/24 09:00 Proposed Procedures p Laparoscopic Right Ovarian Cystectomy - Emmanuel Roman MD Date/Time: 11/15/24 08:15 Surgeon: Emmanuel Roman MD Pre Op Diagnosis: Pelvic Pain Rt Ovaria Cyst Patient Data Age: 29 Gender: F Height: 1.63 m Weight: 89.8 kg Allergies Allergy/AdvReac Type Severity Reaction Status Date / Time No Known Allergies Allergy Verified 11/15/24 08:14 Home Medications ?Medication ?Instructions ?Recorded ?Confirmed ?Type bupropion HCl 150 mg 24 hr tablet, 300 mg PO DAILY 02/01/24 11/15/24 History extended release cholecalciferol (vitamin D3) 50 50 mcg PO DAILY 02/01/24 11/04/24 History mcg (2,000 unit) capsule (Vitamin D3) cyanocobalamin (vitamin B-12) 5,000 mcg sublingual DAILY 02/01/24 11/04/24 History 5,000 mcg sublingual tablet (Vitamin B-12) magnesium 200 mg tablet 400 mg PO HS 02/01/24 11/04/24 History valacyclovir 1 gram tablet 1,000 mg PO DAILY PRN hsv2 02/01/24 11/04/24 History cetirizine 10 mg tablet 10 mg PO DAILY PRN allergy symptoms 05/11/24 11/04/24 History medroxyprogesterone 10 mg tablet 10 mg PO DAILY 06/18/24 11/04/24 History metformin 500 mg tablet 1,000 mg PO BID 06/18/24 11/04/24 History itraconazole 100 mg capsule 100 mg PO DAILY 11/04/24 11/04/24 History hydrocodone 5 mg-acetaminophen 325 1 tablet PO Q4H PRN pain #20 tabs 11/15/24 Rx mg tablet Laboratory Tests 11/15/24 07:33 Blood Type Pending Antibody Screen Pending Patient hx anesthesia problems: post op nausea/vomiting (Scop patch applied. ) Family hx anesthesia problems: none Results Review: All pre-operative results and documents have been reviewed as part of the pre-operative evaluation. [facility] Past Medical History Medical History Herpes simplex Surgical History Surgical History No pertinent past surgical history Family History Family History Mother Family history non-contributory Social History Social History Smoking status: Never smoker Alcohol intake: never Living arrangements: alone Spiritual care concerns: No Anes - Eval Final PreProcedure Day of Procedure 11/15/24 08:15 Patient weight: obese Lungs: normal air movement Airway: Mallampati scale class II Neurological: alert and oriented Last oral intake: >/= 8 hours ASA classification: II Emergent: no Anesthesia type and monitoring: general ETT and standard monitoring Results Review: All pre-operative results and documents have been reviewed as part of the pre- operative evaluation. Mild BENITO no CPAP, PCOS on metformin. BMI 34. Informed Consent: The patient's anesthetic plan and its attendant risks and benefits were discussed with the patient/family/POA. Questions were solicited and answers provided to the satisfaction of the patient/family/POA.
[2024-11-15] MEDS: SCOPOLAMINE 1 MG PATCH 1 PATCH TRANSDERM (08:23)
[2024-11-15] MEDS: KETOROLAC 15 MG/ML VIAL (*BKC) IV PUSH (08:23)
[2024-11-15] MEDS: ACETAMINOPHEN 500 MG TABLET 1000 MG PO (08:24)
--- NOTE | 2024-11-15 09:23 | W.PM.PROC2 ---
Procedure Note - Detailed Date of Procedure 11/15/24 Pre-op Diagnosis Pelvic Pain Rt Ovaria Cyst Post-op Diagnosis Same Procedure Performed Laparoscopic destruction of right cyst Surgeon Emmanuel Roman MD Anesthesia General Indications 29-year-old female with a large right ovarian cyst pelvic pain Findings Normal-appearing uterus left ovary tubes. Large follicular cyst about 5cm in size on the right. Normal-appearing appendix. The gallbladder appeared surgically absent Description of Procedure Patient was prepped draped in normal sterile fashion placed in dorsal lithotomy position. Under excellent general trach anesthesia weighted speculum placed in posterior fornix vagina. Anterior lip of cervix grasped with single-tooth tenaculum. Chao's cannula inserted attached to the single-tooth to be used later for uterine manipulation. Weighted speculum was removed and the gloves were changed. A supraumbilical incision made the Veress needle passed in the abdomen. Abdomen filled with CO2 gas 15mmHg. 5mm trocar advanced under direct visualization with the Optiview and no injury seen. Patient placed in Trendelenburg and a suprapubic incision made. The above findings were noted and photo documentation was undertaken. The right ovary was opened in linear fashion with monopolar cautery and drained of a 40-50 cc of serous fluid. The remainder of the pelvis appeared clear and irrigation then was undertaken. The gas removed from the abdomen. The lower site removed. The upper site removed the incisions closed with 4 Monocryl and glue. Patient was awakened went recovery in satisfactory condition. All sponge, needle, instrument counts were correct. There were no immediate complications Estimated Blood Loss 5 Drains No Packing No Pathology None sent Complications No immediate complications Condition Stable Disposition PACU
[2024-11-15] MEDS: fentaNYL CITRATE INJ (*CRX) 100 MCG/2 ML VIAL 25 MCG IV PUSH (10:16)
[2024-11-15] MEDS: oxyCODONE HCL (*CRX) 5 MG TAB IR PO (10:59)
== END | disposition home or self-care (01) ==
PROVIDERS: PCP Family Medicine; Visit Provider Obstetrics & Gynecology
PROC: (CPT 49320; principal; 2024-11-15 09:00)
DX: N83.01 Follicular cyst of right ovary (principal); E66.9 Obesity, unspecified; Z68.32 Body mass index [BMI] 32.0-32.9, adult; Z79.84 Long term (current) use of oral hypoglycemic drugs; Z79.891 Long term (current) use of opiate analgesic
CPT/HCPCS: 58662; 36415; 86850; 86900; 86901; A9270; J1100; J1885; J2250; J2405; J2704; J3010; J7030; J7120